=== PATIENT | male | born 1940 | race Caucasian/White ===

== ENCOUNTER → 2016-05-17 | Outpatient (REF) | payer MEDICARE ==
[~2016-05-17] MED LIST: ASPI1TAB PO; CALC600T30 PO; DRIS50002 PO; LISI-542 PO; LOPR1TAB6 PO; SIMV20TA2 PO
[2016-05-17 15:53] LABS: ANION GAP 8 MEQ/L (8-16); BLOOD UREA NITROGEN 14 MG/DL (7-18); CALCIUM LEVEL 9.3 MG/DL (8.8-10.2); CARBON DIOXIDE LEVEL 31 MEQ/L (21-32); CHLORIDE LEVEL 102 MEQ/L (98-107); CHOLESTEROL LEVEL 152 MG/DL (<200); CREATININE FOR GFR 1.04 MG/DL (0.70-1.30); GLOMERULAR FILTRATION RATE > 60.0 (>42); GLUCOSE, FASTING 88 MG/DL (83-110); POTASSIUM SERUM 5.1 MEQ/L (3.5-5.1); SODIUM LEVEL 141 MEQ/L (136-145); TRIGLYCERIDES LEVEL 109 MG/DL (<150)
== END ==
LOC: M SFHCSACK 05-14 13:49
PROVIDERS: ATTEND Nurse Practitioner Family
DX: E78.5 Hyperlipidemia, unspecified (principal); I10 Essential (primary) hypertension; E55.9 Vitamin D deficiency, unspecified

== ENCOUNTER → 2016-06-21 | Outpatient (REF) | payer MEDICARE | LOC: M SFHCLACO 10:30 | PROVIDERS: ATTEND Physician Assistant | DX: D23.12 Other benign neoplasm of skin of left eyelid, including canthus (principal) | CPT/HCPCS: 11440; 88305; G0463 ==

== ENCOUNTER → 2016-11-29 | Outpatient (REF) | payer MEDICARE ==
[~2016-11-29] MED LIST changes: +CALTTAB11 PO; +CIPR-249 PO; +FLAG500T PO; +LISI10TA4 PO; +VITA1CAP2 PO
[2016-11-29 16:41] LABS: MEAN CORPUSCULAR HEMOGLOBIN 31.7 pg (27.0-33.0); MEAN CORPUSCULAR HGB CONC 32.2 g/dl (32.0-36.5); MEAN CORPUSCULAR VOLUME 98.2 fl (80.0-96.0); RED CELL DISTRIBUTION WIDTH 13.2 % (11.5-14.5)
[2016-11-29 16:53] LABS: ALBUMIN 3.8 GM/DL (3.2-5.2); ALBUMIN/GLOBULIN RATIO 1.23 (1.00-1.93); ALKALINE PHOSPHATASE 53 U/L (45-117); ALT/SGPT 29 U/L (12-78); ANION GAP 5 MEQ/L (8-16); AST/SGOT 23 U/L (15-37); BILIRUBIN,TOTAL 0.6 MG/DL (0.2-1.0); BLOOD UREA NITROGEN 16 MG/DL (7-18); CALCIUM LEVEL 8.9 MG/DL (8.8-10.2); CARBON DIOXIDE LEVEL 34 MEQ/L (21-32); CHLORIDE LEVEL 103 MEQ/L (98-107); CHOLESTEROL LEVEL 139 MG/DL (<200); CREATININE FOR GFR 0.96 MG/DL (0.70-1.30); GLOMERULAR FILTRATION RATE > 60.0 (>42); GLUCOSE, FASTING 97 MG/DL (83-110); POTASSIUM SERUM 4.7 MEQ/L (3.5-5.1); SODIUM LEVEL 142 MEQ/L (136-145); TOTAL PROTEIN 6.9 GM/DL (6.4-8.2); TRIGLYCERIDES LEVEL 175 MG/DL (<150)
== END ==
LOC: M SFHCSACK 08:34
PROVIDERS: ATTEND Physician Assistant
DX: I10 Essential (primary) hypertension (principal); E55.9 Vitamin D deficiency, unspecified; E78.5 Hyperlipidemia, unspecified; Z12.5 Encounter for screening for malignant neoplasm of prostate
CPT/HCPCS: 36415; 80053; 80061; 82306; 85027; G0103

== ENCOUNTER → 2016-11-30 | Outpatient (CLI) | payer MEDICARE ==
--- NOTE | 2016-11-30 08:24 | REP ---
Abdominal aorta ultrasound: Abdominal Aortic Measurements are as follows: Proximal 1.7 cm AP 2.3 cm TRV Renal Artery Level 2.0 cm AP 2.2 cm TRV Mid Aorta 2.0 cm AP 1.9 cm TRV Distal Aorta 1.4 cm AP 1.7 cm TRV R Iliac Artery 1.2 cm AP 1.5 cm TRV L Iliac Artery 1.1 cm AP 1.4 cm TRV Impression: No evidence of abdominal aortic aneurysm. The study is technically difficult because of patient body habitus and bowel gas. Signed by Kyle Matamoros MD 11/30/2016 08:16 A
== END ==
LOC: M RAD 06:37
PROVIDERS: ATTEND Physician Assistant
DX: Z13.6 Encounter for screening for cardiovascular disorders (principal)

== ENCOUNTER 2016-12-21 07:55 | Inpatient (IN) | payer MEDICARE ==
[~2016-12-21] VITALS: Ht 167.6 cm; Wt 113.5 kg
[~2016-12-21 07:55] MED LIST changes: -CALTTAB11 PO; -CIPR-249 PO; -FLAG500T PO; -LISI10TA4 PO; -VITA1CAP2 PO
[2016-12-21] MEDS ORDERED: VITA1CAP2 PO (08:06)
[2016-12-21] MEDS ORDERED: CALTTAB11 PO (08:06)
[2016-12-21] MEDS ORDERED: NS 1,000 ML IV SCH (08:09)
[2016-12-21] MEDS ORDERED: ONDANSETRON 4MG/2ML VIAL (J2405) IV ONE (08:15)
[2016-12-21] MEDS: MORPHINE 4 MG/ML 1ML SYRINGE IV PRN ×2 (08:23→09:05)
[2016-12-21 08:36] LABS: BASO % 0.4 % (0.0-1.0); EOS # 0.1 10^3/uL (0.0-0.50); EOS % 0.8 % (0.0-3.0); IMMATURE GRANULOCYTE % 0.4 % (0-0); LYMPH # 1.7 10^3/uL (1.5-4.5); LYMPH % 16.4 % (24.0-44.0); MEAN CORPUSCULAR HGB CONC 32.4 g/dl (32.0-36.5); MEAN CORPUSCULAR VOLUME 95.8 fl (80.0-96.0); MONO # 0.8 10^3/uL (0.0-0.8); MONO % 7.3 % (0.0-5.0); NEUTROPHILS # 7.8 10^3/uL (1.8-7.7); NEUTROPHILS % 74.7 % (36.0-66.0); PLATELET COUNT, AUTOMATED 183 10^3/uL (150-450); RED CELL DISTRIBUTION WIDTH 13.2 % (11.5-14.5); WHITE BLOOD COUNT 10.4 10^3/uL (4.0-10.0)
[2016-12-21 08:40] LABS: ADD MANUAL DIFFER NO; DIFF SLIDE NUMBER 129
[2016-12-21] MEDS ORDERED: LISINOPRIL 10 MG TAB PO SCH (09:00)
[2016-12-21] MEDS ORDERED: ASPIRIN 81 MG ENTERIC TAB PO SCH (09:00)
--- NOTE | 2016-12-21 09:26 | REP ---
Abdominal series: Four views. History: Abdominal pain. Findings: Upright chest radiograph shows EKG monitoring electrodes. The lungs are symmetrically aerated and clear. There is no evidence of infiltrate or free subdiaphragmatic air. Heart is not felt to be enlarged. Supine and erect views of the abdomen show a 1.7 cm calcification in the right upper quadrant consistent with a gallstone. The bowel gas pattern is unremarkable. No significant air-fluid levels are seen. Flank stripes are intact. Psoas margins are symmetric. There is no evidence of obstruction. There are some degenerative disc changes in the lumbar spine. Impression: Large calcification right upper quadrant consistent with a calcified gallstone. Normal bowel gas pattern. No acute abnormality. Signed by Yinka Wiley MD 12/21/2016 09:30 A
[2016-12-21 09:55] LABS: ALBUMIN 3.6 GM/DL (3.2-5.2); ALBUMIN/GLOBULIN RATIO 1.03 (1.00-1.93); ALKALINE PHOSPHATASE 57 U/L (45-117); ALT/SGPT 28 U/L (12-78); ANION GAP 4 MEQ/L (8-16); AST/SGOT 20 U/L (15-37); BILIRUBIN,DIRECT 0.1 MG/DL (0.0-0.2); BILIRUBIN,TOTAL 0.5 MG/DL (0.2-1.0); BLOOD UREA NITROGEN 18 MG/DL (7-18); CALCIUM LEVEL 9.4 MG/DL (8.8-10.2); CARBON DIOXIDE LEVEL 33 MEQ/L (21-32); CHLORIDE LEVEL 103 MEQ/L (98-107); CREATININE FOR GFR 1.02 MG/DL (0.70-1.30); GLOMERULAR FILTRATION RATE > 60.0 (>42); GLUCOSE, FASTING 113 MG/DL (83-110); POTASSIUM SERUM 4.9 MEQ/L (3.5-5.1); SODIUM LEVEL 140 MEQ/L (136-145); TOTAL PROTEIN 7.1 GM/DL (6.4-8.2)
[2016-12-21] MEDS ORDERED: LISI10TA4 PO (12:47)
--- NOTE | 2016-12-21 13:34 | REP ---
Right upper quadrant sonography: History: Right upper quadrant pain. Findings: Exam quality is inhibited to some degree by patient body habitus. Scanning through the right upper quadrant demonstrates a normal sized thin-walled nontender gallbladder with evidence of a mobile stone in its lumen. The gallstone measures up to 1.4 cm in greatest diameter. No pericholecystic fluid is seen. Common bile duct is normal measuring 0.6 cm in greatest diameter. There is evidence of fatty infiltration of the liver with poor insonation of the liver. No focal liver mass lesion is seen. Pancreas is obscured by abdominal gas. There is no evidence of ascites. No right renal abnormality is noted. The right kidney measures 10.0 x 4.8 x 4.7 cm. Impression: 1.4 cm mobile gallstone in the gallbladder. Evidence of fatty infiltration of the liver. Otherwise negative. Signed by Yinka Wiley MD 12/21/2016 03:32 P
--- NOTE | 2016-12-21 13:35 | HPEPDOC ---
[facility] Medical History & Physical Date of Admission Dec 21, 2016 History and Physical ATTENDING: Dr. Pizarro PCP: [facility] CC: Abdominal pain HPI: 76yoM with a past medical history significant for hypertension, hyperlipidemia, obesity, history of CVA who states he has had left lower quadrant abdominal pain since yesterday worsening throughout the night. He felt slightly nauseated this morning however he had no vomiting. Denies diarrhea. States he had a bowel movement today. Patient states his pain is improved since he got to the emergency room however previous to that it was sharp and severe. He denies back pain. Denies urinary complaints including dysuria, frequency, urgency, or hematuria. While the patient was in the emergency room he was noted to have 6 beats of NSVT followed by a 5 second 25 beat run of VT. The patient was asymptomatic. He denies any chest heaviness, tightness, or pressure. Denies DOMINGUEZ/SOB. Denies any fevers, chills, weakness, fatigue, VENTURA, CP, SOB, cough, palpitations , abdominal pain, N/V/D or changes in bowel or bladder habits. Upon presentation to the hospital the patient was found to have NSVT, thus the hospitalist team was consulted. PMHx: Right cerebral hemorrhage 2013/YARELIS 2013. [place] Hypertension Hyperlipidemia Obesity. 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 PE: GEN: 76yoM, appears stated age. Well-nourished, well developed. No acute distress. Alert and oriented x 3. Pleasant, interactive. HEENT: Normocephalic, atraumatic. Pupils are equal, round, and reactive to light. Extraocular movements are intact. No nystagmus appreciated. Sclera are nonicteric. Conjunctiva without injection. Nose midline. Nasal turbinates without bogginess. EACs both patent BL. TMs both visualized and zarate with good cone of light, no bulging or erythema. No facial asymmetry. Moist mucous membranes. Dentition fair. Pharynx pink and moist, no cobblestoning. Neck supple , trachea midline. No lymphadenopathy or thyromegaly appreciated. CHEST: Regular rate and rhythm, +S1, +S2 LUNGS: Clear to auscultation bilaterally. No wheezes, rales, or rhonchi. Breathing appears symmetric and easy. Patient is speaking in full sentences. No accessory muscle use. ABD: Round, soft, mild RLQ TTP, mild distention noted. Bowel sounds present. No rebound or guarding. No costovertebral angle tenderness. EXT: Pulses 2+ bilaterally dorsalis pedis and radial. No lower extremity edema appreciated. SKIN: [place], dry, warm. Capillary refill <2sec. No rashes. NEURO: Alert and oriented x 3. Cranial nerves III-XII are intact. No focal deficits appreciated. AXR: Large calcification right upper quadrant consistent with a calcified gallstone. Normal bowel gas pattern. No acute abnormality Gallbladder ultrasound pending CT abdomen and pelvis pending EKG: Sinus rhythm, occasional PVC, low voltage, IWMI probable old, 80 bpm. A&P: 76yoM with a past medical history significant for hypertension, hyperlipidemia, obesity, history of CVA who states he has had left lower quadrant abdominal pain since yesterday worsening throughout the night. He felt slightly nauseated this morning however he had no vomiting. Denies diarrhea. States he had a bowel movement today. Patient states his pain is improved since he got to the emergency room however previous to that it was sharp and severe. He denies back pain. Denies urinary complaints including dysuria, frequency, urgency, or hematuria. While the patient was in the emergency room he was noted to have 6 beats of NSVT followed by a 5 second 25 beat run of VT. The patient was asymptomatic. He denies any chest heaviness, tightness, or pressure. 1. The patient will be admitted to PCU for at least [address] Pizarro's service. Patient is discussed with Dr Palumbo. 2. NSVT. Patient is asymptomatic. Serial CIP/troponin. Potassium is noted to be 4.9. Add magnesium level. Request echocardiogram. 3. Right lower quadrant abdominal pain. Gallbladder ultrasound pending. CT scan abdomen and pelvis pending. Blood cultures/urine culture pending. Patient is afebrile. WBC noted to be 10.3. Lactic acid is noted to be 1.8. IV fluids at 100 mL per hour in the emergency department x 1 liter. Subsequently, CT A/P indicates acute appendicitis. Dr Monsivais consulted. NPO/ IVF. Hold ASA 81 mg. IV Zosyn started. Plan to discuss with Dr Manzanares, Cardiology, regarding cardiac preoperative clearance. Request previous YARELIS results from [facility]. Discussed with Dr Palumbo. Also have further discussed with Dr Manzanares, cardiology CLT requested regarding preoperative clearance. He recommends request records from [facility], request TTE STAT, consider dose of Metoprolol x 1 now. Set of CIP/Trop x 1 now. 4. Hypertension. Continue metoprolol with hold parameters. Hold aspirin 81 mg daily/Lisinopril. 5. Dyslipidemia. Continue statin. LDL is noted to be 62 9/17. 6. Obesity. BMI 37.1. Complicates care. DVT prophylaxis. SCD/TEDS. The patient is a full code. Vital Signs Vital Signs Date Time Temp Pulse Resp B/P (MAP) Pulse Ox O2 Delivery O2 Flow Rate FiO2 12/21/16 11:35 98.2 12/21/16 11:21 80 18 95 Nasal Cannula 2.0 Laboratory Data Labs 24H Laboratory Tests 2 12/21/16 08:21: Immature Granulocyte % (Auto) 0.4H, White Blood Count 10.4H, Red Blood Count 4.48, Hemoglobin 13.9L, Hematocrit 42.9, Mean Corpuscular Volume 95.8, Mean Corpuscular Hemoglobin 31.0, Mean Corpuscular Hemoglobin Concent 32.4, Red Cell Distribution Width 13.2, Platelet Count 183, Neutrophils (%) (Auto) 74.7H, Lymphocytes (%) (Auto) 16.4L, Monocytes (%) (Auto) 7.3H, Eosinophils (%) (Auto) 0.8, Basophils (%) (Auto) 0.4, Neutrophils # (Auto) 7.8H, Lymphocytes # (Auto) 1.7, Monocytes # (Auto) 0.8, Eosinophils # (Auto) 0.1, Basophils # (Auto) 0.0, Immature Granulocyte # (Auto) 0.0, Nucleated Red Blood Cells % (auto) 0.0, Anion Gap 4L, Glomerular Filtration Rate > 60.0, Lactic Acid Level 1.8, Calcium Level 9.4, Aspartate Amino Transf (AST/SGOT) 20, Alanine Aminotransferase (ALT/ SGPT) 28, Alkaline Phosphatase 57, Total Bilirubin 0.5, Direct Bilirubin 0.1, Creatine Kinase MB 2.8, Troponin I < 0.02, Total Protein 7.1, Albumin 3.6, Albumin/Globulin Ratio 1.03, Lipase 316 12/21/16 10:26: Urine Appearance CLEAR, Urine Color YELLOW, Urine pH 5.0, Urine Specific [place] 1.015, Urine Protein NEGATIVE, Urine Glucose (UA) NEGATIVE, Urine Ketones NEGATIVE, Urine Urobilinogen 0.2, Urine Bilirubin NEGATIVE, Urine Leukocyte Esterase NEGATIVE, Urine Blood NEGATIVE, Urine Nitrite NEGATIVE, Urine WBC (Auto) 0, Urine RBC (Auto) 4H, Urine Hyaline Casts (Auto) 0, Urine Bacteria (Auto) NEGATIVE, Urine Squamous Epithelial Cells 0, Urine Sperm (Auto) CBC/BMP Laboratory Tests 12/21/16 08:21 Red Blood Count 4.48, Mean Corpuscular Volume 95.8, Mean Corpuscular Hemoglobin 31.0, Mean Corpuscular Hemoglobin Concent 32.4, Red Cell Distribution Width 13.2 , Neutrophils (%) (Auto) 74.7 H, Lymphocytes (%) (Auto) 16.4 L, Monocytes (%) ( Auto) 7.3 H, Eosinophils (%) (Auto) 0.8, Basophils (%) (Auto) 0.4, Neutrophils # (Auto) 7.8 H, Lymphocytes # (Auto) 1.7, Monocytes # (Auto) 0.8, Eosinophils # (Auto) 0.1, Basophils # (Auto) 0.0 Home Medications Scheduled (Caltrate 600+D 600-800 mg-Unit) 1 Tab Tab, 1 TAB PO BID Aspirin (Aspirin 81) 81 Mg Tab, 81 MG PO DAILY Cholecalciferol (Vitamin D-3) 1,000 Unit Cap, 1,000 UNIT PO DAILY Lisinopril (Lisinopril) 10 Mg Tab, 10 MG PO DAILY Metoprolol Tartrate (Lopressor) 50 Mg Tab, 50 MG PO BID Simvastatin (Simvastatin) 20 Mg Tab, 20 MG PO QHS Allergies Coded Allergies: No Known Allergies (Unverified , 12/21/16) Jessica Candelario Dec 21, 2016 13:34
--- NOTE | 2016-12-21 14:08 | REP ---
CT of the abdomen and pelvis without IV or bowel contrast: The visualized lung mayen demonstrate dependent atelectasis but are otherwise unremarkable. The unenhanced hepatic parenchyma is unremarkable. There is an 80 ml calculus in the gallbladder neck. There is no gallbladder distension, wall thickening or pericholecystic fluid. The pancreas is unremarkable. The spleen is unremarkable. The adrenals are unremarkable. There is no hydronephrosis. There are no renal or ureteral calculi. The abdominal aorta is unremarkable except for calcified atheroma. There is no bowel distension or obstruction. Pelvis: The appendix is distended measuring 10 - 13 mm in diameter. I suspect there is a inflammation in the mesentery at the tip of the appendix. There is no focal fluid collection. There is no ascites. No adenopathy. The bladder is unremarkable. Impression: There is no hydronephrosis. There are no renal collecting system calculi. The appendix appears distended and there is mild inflammatory change in the mesentery at the appendiceal tip compatible with appendicitis. No ascites or adenopathy. There is a calculus in the gallbladder neck. No evidence of acute cholecystitis. Signed by Kyle Matamoros MD 12/21/2016 02:00 P
[2016-12-21] MEDS ORDERED: ACETAMINOPHEN TAB 650MG DOSE (2X325MG) PO PRN (14:30)
[2016-12-21] MEDS: NS 1,000 ML IV SCH (14:42)
[2016-12-21 14:54] LABS: MAGNESIUM LEVEL 1.9 MG/DL (1.8-2.4)
[2016-12-21] MEDS ORDERED: METOPROLOL TART 12.5 MG PER 1/2 TAB PO ONE (15:00)
[2016-12-21 15:12] VITALS: BP 116/63
--- NOTE | 2016-12-21 16:03 | CR ---
DATE OF CONSULTATION: 12/21/2016 BRIEF HISTORY OF PRESENT ILLNESS: The patient is a 76-year-old white male who presents with abdominal pain that was present since early yesterday and last night got quite severe in the middle the night was seen in the emergency room this morning and was felt to have some right-sided abdominal pain and had a gallbladder ultrasound which showed gallstones without any an acute inflammation then a CAT scan was ordered, but by the time a CAT scan was ordered the patient ended up having a significant run of the V-tach. The patient is asymptomatic, although he has complained of some progressive shortness of breath over the last 6 months with ambulation that causes shortness of breath. He states about 50 yard to 75 yards before he has to stop and catch his breath. He states this is different over the last 6 months. He has had no fevers or chills. He has had a cardiac workup it sounds as though in 2013. From a right lower quadrant, right-sided abdominal pain he ended up having a CAT scan after this, which showed some inflammation in the right lower quadrant adjacent to the appendix with some thickening of the appendix consistent with possible early appendicitis. I was asked to see him for additional recommendations. Since his admission to the emergency room he states his pain is much better. He states that when he was having pain overnight and earlier today he could not even touch his belly and now he says it does not hurt much unless you push really hard. PAST MEDICAL HISTORY: Is significant for history of right cerebral hemorrhage, history of hypertension, history of hyperlipidemia, history of obesity, history of right carpal tunnel release, history of colonoscopies with a history of adenomatous polyps, history of cataract surgery, history of [id number], recent onset of shortness of breath. No complaints of chest pain. PHYSICAL EXAMINATION: On his physical exam the patient is a 76-year-old male who appears to be in no acute distress. However, he is mildly short of breath when I am talking to him and he has oxygen on at this point despite this he stills seems to have some difficulty finishing his sentence without some shortness breath at baseline. His heart is regular with a few irregular beats. His lungs are diminished bilaterally and posteriorly. Abdomen is soft, morbidly obese, mildly tender to palpation in the right lower quadrant with guarding, but no rebound. Extremities are warm and well-perfused. IMPRESSION AND PLAN: 1. The patient has a symptomatic gallstones unlikely the etiology of his pain. 2. Appendicitis. I do feel that he has some inflammation around his appendix and easily could have early appendicitis. However, he has had clinical improvement since this morning. Thus he may be an individual that nonoperative intervention is a very reasonable option for him typically with greater than 24 hours of abdominal pain, I would have expected his white count jumped higher than 10. In addition would expect have him have a increasing pain at this point. I do see what may have been a fecalith that is currently in the cecum adjacent to the appendiceal orifice and I wonder if this was in the appendiceal orifice and now has "popped out" and may be why he has resolved some of his abdominal pain, it is hard to know at this point, but since he clinically has improved there is a definite reasonable option for nonoperative treatment in this individual. Currently my concerns from a surgical standpoint is just his shortness of breath alone makes his operative intervention riskier, I understand cardiology will be coming by to see him and they will need to optimize him and clear him from a cardiac standpoint over the next 12-24 hours. However, if we watch him over the next 12-24 hours and he has decreasing pain and clinical improvement, we may be able to forego operative intervention completely. I would like to avoid anticoagulation in this individual until we are more sure that he will not need operative intervention. If, however, he is deemed not an operative candidate from a medical standpoint we can continue watching him and even if he needs intervention such as percutaneous drainage, etc. that could be scheduled at some point in the future if he develops an abscess. Once again that would be several steps down the road. Cardiac issues had an episode of V-tach with this new onset shortness of breath over the last 6 months. I am not sure if his shortness of breath now in the room is different than it was when he was down in the emergency room, but we will wait cardiology's recommendations and evaluation.
[2016-12-21] MEDS: VITAMIN D 1,000 INTERNATIONAL UNITS TABLET PO SCH (17:29)
[2016-12-21] MEDS: PIPERACILLIN/TAZOBACTAM SOD 3.375 GM in D5W 50 ML IV SCH (17:29)
--- NOTE | 2016-12-21 18:24 | ECHO ---
DATE OF PROCEDURE: 12/21/2016 REFERRING PHYSICIAN: NAZANIN Brery INDICATION: Ventricular tachycardia. HEIGHT: 168 cm WEIGHT: 104 kg. DIMENSIONS: IVS: 1.1 LV: 4.7 LVPW: 1.1 LA: 3.9 Aorta: 3.9 FINDINGS: The study is of fair technical quality. There are reasonably good parasternal views, but apical and subcostal views are rather limited. Left ventricle is of normal size and systolic function, estimated left ventricular ejection fraction (LVEF) 65-70%. Even though I cannot rule out subtle wall motion abnormalities, it seems unlikely. The right ventricle also appears normal size and systolic function. Left atrium is at least mildly enlarged. Right atrium appears grossly normal. Aortic, mitral and tricuspid valves appear normal. Pulmonic valve was not well seen. No pericardial effusion is noted. Inferior vena cava is normal size. Aortic root is borderline dilated at 3.9 cm. Aortic arch and abdominal aorta were not well visualized. Doppler interrogation reveals no aortic stenosis or insufficiency. There is mild mitral insufficiency and trace tricuspid insufficiency. Calculated pulmonary artery pressure is in 30s corresponding to mild pulmonary hypertension. Mitral inflow pattern and tissue Doppler imaging of mitral annulus reveal grade 1 diastolic dysfunction. CONCLUSION 1. Study is of fair technical quality. 2. Normal LV size and systolic function, grade 1 diastolic dysfunction. 3. No significant valvular disease. 4. Likely normal central venous pressure and mild pulmonary hypertension. COMMENT: Subacute bacterial endocarditis (SBE) prophylaxis is not recommended. Study does not provide evidence for ischemic heart disease. MTDD
--- NOTE | 2016-12-21 18:50 | CR ---
DATE OF CONSULTATION: 12/21/2016 REFERRING PHYSICIAN: Jessica Candelario INDICATION: Nonsustained ventricular tachycardia. HISTORY OF PRESENT ILLNESS: Mr. Keating is 76-year-old man who has no prior cardiac history. He presented to [facility] complaining about right lower quadrant abdominal pain and has suspected appendicitis. While he was in the emergency room he had a 25 beat run of what was felt to be ventricular tachycardia. He was asymptomatic at that time other than the abdominal pain. His cardiac enzymes have been negative times 2. I was called for consultation mostly to provide guidance regarding further management and provide clearance for tentative appendectomy if felt necessary. The patient tells me that he has no cardiac history. He denies any chest discomfort. He has exertional dyspnea by [place] [employer], class II to III, but he is able to take care of his household without major difficulty. He denies having any unusual symptoms at the time of the arrhythmia. Reviewing the strips from emergency room, it is my impression that the recording actually represents artifact. The ventricular rate of the recorded arrhythmias was 300 beats per minute and it is a very narrow QRS complex; much more narrow that the baseline QRS which makes this very unlikely. I am not exactly certain what is the source of this artifact, but I certainly do not believe that it truly represents ventricular tachycardia. PAST MEDICAL HISTORY: 1. History of cerebral hemorrhage into 2013. He apparently had transesophageal echocardiogram in [place], [place]. To the best of his understanding no significant pathology was found. 2. Hypertension. 3. Dyslipidemia. 4. Obesity. PAST SURGICAL HISTORY: Positive for cataract surgery and carpal tunnel repair. SOCIAL HISTORY: The patient is . 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 He tells me that he briefly smoked but quit about 40 years ago. He has minimal alcohol consumption. He has two sons. They are not local. FAMILY HISTORY: Both parents are , mother of stroke, and father of COPD. He has no first-degree relatives with early coronary artery disease. REVIEW OF SYSTEMS: On the review of systems he denies any recent fever, chills, nausea or vomiting. The abdominal pain onset was only a few hours prior to presentation to emergency room. He denies any chest pain, palpitations, syncope and near-syncope. No peripheral edema. No recent weight changes. The rest of review of system is negative. PHYSICAL EXAMINATION: Mr. Keating is a man appears approximately his age of 76. He is not in no distress. He is lying flat on his back in PCU bed. Blood pressure last documented 116/63, heart rate has been in 70s and 80s. He is afebrile. Saturation is 97% on 2 liters of oxygen by nasal cannula. Weight is documented at 104 kg. Jugular venous pressure is not elevated. I do not appreciate carotid bruit. Lungs are clear to auscultation with good air movement. Heart: Exam reveals somewhat muffled heart sound corresponding to his body habitus, but I do not appreciate any gallop, rub or murmur. There is palpation tenderness in right lower quadrant. No tenderness on the left side and he is somewhat apprehensive while palpating his right upper quadrant. Bowel sounds are present. There is no peripheral edema. Peripheral pulses are all palpable. Neurologically, he has some slight speech impediment, but I do not appreciate any other focal signs. LABORATORY: CBC: WBC count 10.4, hemoglobin and 13.9, hematocrit 42.9 and platelet count 183,000. Basic metabolic panel was normal. Liver function tests are normal. Albumin is 3.6. Two sets of cardiac enzymes have been normal and urinalysis is normal. IMAGING STUDIES: CT of the abdomen is suggestive of possibly appendicitis even though the reading is not overly convincing, the but I think that overall presentation, yes. ECG performed in the emergency room reveals sinus rhythm with ventricular rate 80 beats per minute. There are nondiagnostic Q-waves in leads III and aVF and there is occasional premature ventricular contraction (PVC). No significant ST-T abnormality. ASSESSMENT/PLAN: Mr. Keating is a 76-year-old obese man with history of hypertension and dyslipidemia who presents with likely appendicitis. He was felt to have a VT in emergency room but in my opinion the tracing represents an artifact. He had an echocardiogram that revealed preserved LV systolic function. From my perspective, the patient can proceed with surgery if felt appropriate without further delay. I do not have any specific recommendations for perioperative management other than continuation of metoprolol. I would continue monitoring on telemetry overnight, but if no abnormalities are noted, I think he can be transferred to non-monitor bed tomorrow morning.
[2016-12-21 19:37] LABS: MEAN CORPUSCULAR HEMOGLOBIN 31.3 pg (27.0-33.0); MEAN CORPUSCULAR VOLUME 97.8 fl (80.0-96.0); RED CELL DISTRIBUTION WIDTH 13.3 % (11.5-14.5); WHITE BLOOD COUNT 8.9 10^3/uL (4.0-10.0)
[2016-12-21 20:00] VITALS: BP 116/62
[2016-12-21] MEDS: METOPROLOL TART 50 MG TAB PO SCH (22:21)
[2016-12-21] MEDS: SIMVASTATIN 20 MG TAB PO SCH (22:22)
[2016-12-21 23:55] VITALS: BP 106/59
[2016-12-22] MEDS: PIPERACILLIN/TAZOBACTAM SOD 3.375 GM in D5W 50 ML IV SCH ×3 (00:16→16:16)
[2016-12-22] MEDS: NS 1,000 ML IV SCH (02:41)
[2016-12-22 05:20] VITALS: BP 110/64
[2016-12-22 05:35] LABS: BASO % 0.2 % (0.0-1.0); EOS # 0.1 10^3/uL (0.0-0.50); EOS % 1.1 % (0.0-3.0); IMMATURE GRANULOCYTE % 0.3 % (0-0); LYMPH # 1.5 10^3/uL (1.5-4.5); MEAN CORPUSCULAR HEMOGLOBIN 31.3 pg (27.0-33.0); MEAN CORPUSCULAR HGB CONC 31.8 g/dl (32.0-36.5); MEAN CORPUSCULAR VOLUME 98.4 fl (80.0-96.0); MONO # 0.8 10^3/uL (0.0-0.8); NEUTROPHILS # 4.2 10^3/uL (1.8-7.7); NEUTROPHILS % 63.4 % (36.0-66.0); PLATELET COUNT, AUTOMATED 158 10^3/uL (150-450); RED CELL DISTRIBUTION WIDTH 13.3 % (11.5-14.5); WHITE BLOOD COUNT 6.7 10^3/uL (4.0-10.0)
[2016-12-22 06:16] LABS: ALBUMIN 2.9 GM/DL (3.2-5.2); ALBUMIN/GLOBULIN RATIO 0.91 (1.00-1.93); ALKALINE PHOSPHATASE 38 U/L (45-117); ALT/SGPT 22 U/L (12-78); ANION GAP 4 MEQ/L (8-16); AST/SGOT 14 U/L (15-37); BILIRUBIN,TOTAL 0.7 MG/DL (0.2-1.0); BLOOD UREA NITROGEN 17 MG/DL (7-18); CALCIUM LEVEL 8.2 MG/DL (8.8-10.2); CARBON DIOXIDE LEVEL 31 MEQ/L (21-32); CHLORIDE LEVEL 104 MEQ/L (98-107); CREATININE FOR GFR 0.99 MG/DL (0.70-1.30); GLOMERULAR FILTRATION RATE > 60.0 (>42); GLUCOSE, FASTING 94 MG/DL (83-110); POTASSIUM SERUM 4.5 MEQ/L (3.5-5.1); SODIUM LEVEL 139 MEQ/L (136-145); TOTAL PROTEIN 6.1 GM/DL (6.4-8.2)
--- NOTE | 2016-12-22 06:18 | ECGEPIP ---
Stationary ECG Study [facility] - ED Test Date: 2016-12-21 Pat Name: PRAKASH NORIEGA Department: Room: - Gender: M Implementation Project Coordinator: JStuart : 1940 Requested By: Damien Ibarra Order Number: [id number] Reading MD: Damien Engle Measurements Intervals [place]herty Rate: 80 P: 49 MN: 168 QRS: -6 QRSD: 96 T: 28 QT: 390 QTc: 453 Interpretive Statements SINUS RHYTHM WITH OCCASIONAL VENTRICULAR PREMATURE COMPLEXES INDETERMINATE AXIS LOW QRS VOLTAGE IN EXTREMITY LEADS PATTERN CONSISTENT WITH PULMONARY DISEASE INFERIOR MYOCARDIAL INFARCTION, PROBABLY OLD NO PRIORS Electronically Signed On 12-22-2016 6:18:26 EDT by Damien Engle
--- NOTE | 2016-12-22 07:55 | IPN ---
DATE: 12/22/2016 Mr. Keating has not had any events overnight. He feels comfortable this morning, even though he still has some residual abdominal pain it is better since yesterday. There were no arrhythmias detected on telemetry. Blood pressure 110/64. Heart rate has been in the 70s and 80s. He is afebrile. Saturation is 96% on 2 liters of oxygen. Weight is 113, which is supposedly almost 9 kg up from yesterday, but is clearly incorrect. He is alert and oriented and appropriate. His jugular venous pulse (JVP) is not high. Lungs are clear. Heart exam reveals regular rhythm. I do not appreciate a murmur, gallop or rub. Abdomen is obese, but soft. There is still tenderness, especially in the right lower quadrant, but no guarding and no apparent rebound tenderness. Extremities have no edema. Neurologically, he is intact other than small mild speech impediment. Laboratory-santoro, CBC with hemoglobin 12.1, hematocrit 38.1 and platelet count 158,000. Basic metabolic panel is normal. ASSESSMENT AND PLAN: Mr. Keating is a 76-year-old man who has no prior history of cardiovascular disease and specifically no history of congestive heart failure or coronary artery disease. He was admitted yesterday with suspected appendicitis. He had a run of what was felt to be nonsustained ventricular tachycardia in the emergency room, but after reviewing the strip I am convinced that this represents an artifact. He has not had anything to suggest nonsustained VT on telemetry and has been asymptomatic, ruled out for myocardial infarction and his echocardiogram reveals preserved LV systolic function. I am going to sign off his care. In my opinion, he can be moved to a regular floor and if surgery is necessary it can be pursued without specific precautions.
[2016-12-22 08:00] VITALS: BP 131/63
[2016-12-22] MEDS: VITAMIN D 1,000 INTERNATIONAL UNITS TABLET PO SCH (09:17)
[2016-12-22] MEDS: METOPROLOL TART 50 MG TAB PO SCH ×2 (09:18→20:46)
[2016-12-22 12:00] VITALS: BP 137/66
--- NOTE | 2016-12-22 14:10 | IPNPDOC ---
Text Note Date of Service The patient was seen on 12/22/16. NOTE Subjective: Patient states his abdominal pain is much improved. Denies nausea and vomiting. No chest pain/palpitations. Objective: Vitals: (see below) General: No acute distress, laying comfortably in bed. HEENT: Moist mucous membranes. Neck: No JVD or lymphadenopathy Cardiac: RRR, No murmurs Pulm: Clear to auscultation b/l. No wheezing, rhonchi Abd: Minimal tenderness to palpation in the right lower quadrant. No rebound guarding or rigidity./ND + BS Ext: No edema or cyanosis Labs (see below) Images: Echo 12/21/16 CONCLUSION 1. Study is of fair technical quality. 2. Normal LV size and systolic function, grade 1 diastolic dysfunction. 3. No significant valvular disease. 4. Likely normal central venous pressure and mild pulmonary hypertension. CT Abd/pelvis 12/21/16 Impression: There is no hydronephrosis. There are no renal collecting system calculi. The appendix appears distended and there is mild inflammatory change in the mesentery at the appendiceal tip compatible with appendicitis. No ascites or adenopathy. There is a calculus in the gallbladder neck. No evidence of acute cholecystitis. Assessment/Plan 1. Right lower quadrant pain and suspicion of appendicitis. Surgery on board with recommendations for close observation with antibiotics at this time. Mild leukocytosis presentation. On IV fluids. 2. Questionable nonsustained V. tach. Hold by cardiology and is now thought to be artifactual and actual ventricular tachycardia. Echocardiogram with preserved EF. 3. Hypertension controlled continue current meds. 4. Hyperlipidemia continue statin 5. Obesity DVT prophy: SCDs VS,Fishbone, I+O VS, Fishbone, I+O Laboratory Tests 12/21/16 19:28 Red Blood Count 4.09 L, Mean Corpuscular Volume 97.8 H, Mean Corpuscular Hemoglobin 31.3, Mean Corpuscular Hemoglobin Concent 32.0, Red Cell Distribution Width 13.3 12/22/16 05:09 Red Blood Count 3.87 L, Mean Corpuscular Volume 98.4 H, Mean Corpuscular Hemoglobin 31.3, Mean Corpuscular Hemoglobin Concent 31.8 L, Red Cell Distribution Width 13.3, Neutrophils (%) (Auto) 63.4, Lymphocytes (%) (Auto) 23.0 L, Monocytes (%) (Auto) 12.0 H, Eosinophils (%) (Auto) 1.1, Basophils (%) ( Auto) 0.2, Neutrophils # (Auto) 4.2, Lymphocytes # (Auto) 1.5, Monocytes # (Auto ) 0.8, Eosinophils # (Auto) 0.1, Basophils # (Auto) 0.0, Calcium Level 8.2 L, Aspartate Amino Transf (AST/SGOT) 14 L, Alanine Aminotransferase (ALT/SGPT) 22, Alkaline Phosphatase 38 L, Total Bilirubin 0.7, Total Protein 6.1 L, Albumin 2.9 L Vital Signs Date Time Temp Pulse Resp B/P (MAP) Pulse Ox O2 Delivery O2 Flow Rate FiO2 12/22/16 12:00 98.2 81 18 137/66 (89) 98 Nasal Cannula 1.0 I&O- Last 24 Hours up to 6 AM 12/23/16 06:00 Intake Total 480 ml Output Total 700 ml Balance -220 ml SKYLAR GALLARDO MD Dec 22, 2016 14:10
--- NOTE | 2016-12-22 15:39 | IPN ---
DATE: 12/22/2016 The patient seems to be making good progress overnight. Seems to be feeling better this morning. He has been afebrile overnight. His white count is 6.7, which is down from what it was previously. Overall states that his abdominal pain is improved as well. PHYSICAL EXAMINATION: Abdomen is morbidly obese, mildly tender to palpation in the right lower quadrant but much improved since yesterday. Decreasing pain, decreasing tenderness in the right lower quadrant. IMPRESSION AND PLAN: The patient may have had early appendicitis or possible diverticulitis of the cecum or some other infectious etiology. At this point it may have also been a noninfectious etiology. I do feel that it is reasonable to keep him on the antibiotics at this time. Will start him on a clear liquid diet, and since he has had some significant improvement, I do feel that nonoperative treatment for him seems to be the appropriate course at this time. Will continue him on the clear liquids, antibiotics, and if he is doing well tomorrow, then we can progress him to a regular diet and plan on discharge the following day if he has continued improvement. In general, this may be a slower progression of increasing diet and discharge, but given his multiple comorbidities and overall general status, I do feel that it is reasonable to go slowly with him.
[2016-12-22 16:00] VITALS: BP 132/75
[2016-12-22 19:00] VITALS: BP 159/79
[2016-12-22] MEDS: SIMVASTATIN 20 MG TAB PO SCH (20:44)
[2016-12-22 22:00] VITALS: BP 154/73
[2016-12-23] MEDS: PIPERACILLIN/TAZOBACTAM SOD 3.375 GM in D5W 50 ML IV SCH ×2 (00:55→10:19)
[2016-12-23 06:00] VITALS: BP 148/90
[2016-12-23 06:29] LABS: BASO % 0.2 % (0.0-1.0); EOS # 0.1 10^3/uL (0.0-0.50); EOS % 1.7 % (0.0-3.0); IMMATURE GRANULOCYTE % 0.2 % (0-0); LYMPH # 1.4 10^3/uL (1.5-4.5); LYMPH % 25.8 % (24.0-44.0); MEAN CORPUSCULAR HEMOGLOBIN 31.1 pg (27.0-33.0); MEAN CORPUSCULAR HGB CONC 31.9 g/dl (32.0-36.5); MEAN CORPUSCULAR VOLUME 97.5 fl (80.0-96.0); MONO # 0.7 10^3/uL (0.0-0.8); MONO % 12.2 % (0.0-5.0); NEUTROPHILS # 3.2 10^3/uL (1.8-7.7); NEUTROPHILS % 59.9 % (36.0-66.0); PLATELET COUNT, AUTOMATED 151 10^3/uL (150-450); RED CELL DISTRIBUTION WIDTH 12.9 % (11.5-14.5); WHITE BLOOD COUNT 5.3 10^3/uL (4.0-10.0)
[2016-12-23 06:52] LABS: ALBUMIN 2.9 GM/DL (3.2-5.2); ALBUMIN/GLOBULIN RATIO 0.88 (1.00-1.93); ALKALINE PHOSPHATASE 39 U/L (45-117); ALT/SGPT 21 U/L (12-78); ANION GAP 6 MEQ/L (8-16); AST/SGOT 16 U/L (15-37); BILIRUBIN,TOTAL 0.6 MG/DL (0.2-1.0); BLOOD UREA NITROGEN 12 MG/DL (7-18); CARBON DIOXIDE LEVEL 29 MEQ/L (21-32); CHLORIDE LEVEL 103 MEQ/L (98-107); CREATININE FOR GFR 0.91 MG/DL (0.70-1.30); GLOMERULAR FILTRATION RATE > 60.0 (>42); GLUCOSE, FASTING 105 MG/DL (83-110); MAGNESIUM LEVEL 2.2 MG/DL (1.8-2.4); SODIUM LEVEL 138 MEQ/L (136-145); TOTAL PROTEIN 6.2 GM/DL (6.4-8.2)
--- NOTE | 2016-12-23 10:00 | IPNPDOC ---
Date Seen The patient was seen on 12/23/16. Progress Note SUBJECTIVE: The patient is a 76-year-old white male who presents abdominal pain.Gallbladder ultrasound showed gallstones without any an acute inflammation a CT scan showed some inflammation in the right lower quadrant adjacent to the appendix with some thickening of the appendix consistent with possible early appendicitis. Surgery was consulted to evaluate. Patient did well overnight. His pain has reduced. Patient is having multiple episodes of the glottis and watery bowel movements. He had been on clear liquids and he is tolerating that fine with no issues OBJECTIVE PHYSICAL EXAMINATION: VITAL SIGNS: Please see below. GENERAL: Alert, orientated gentleman resting peacefully CARDIOVASCULAR: S1 and S2's present, no murmurs, no rubs, no gallops. RESPIRATORY: Lungs are clear to auscultate anterior and posterior bilateral. ABDOMINAL: Tenderness to palpation on right lower quadrant EXTREMITIES: Movement, no deformities noted LABORATORY DATA: Please see below. ASSESSMENT AND PLAN: A 76-year-old man who presented to ED with abdominal pain, subsequent CT revealed inflammation in the right lower quadrant adjacent to the appendix. Patient white count this morning is 5.2. Patient does not have any signs of infection, and was afebrile overnight. Patient was on clear liquid diet overnight and he tolerated that well. He was able to tolerate a regular diet this morning. Pt can be discharge today with the instruction to follow up with Dr. Monsivais in 2-3 weeks. VS, I&O, 24H, Fishbone Vital Signs/I&O Vital Signs Date Time Temp Pulse Resp B/P (MAP) Pulse Ox O2 Delivery O2 Flow Rate FiO2 12/23/16 06:00 97.8 80 19 148/90 (109) 93 Room Air 12/22/16 12:00 1.0 I&O- Last 24 Hours up to 6 AM 12/24/16 06:00 Intake Total 240 ml Balance 240 ml Laboratory Data 24H LABS Laboratory Tests 2 12/22/16 10:11: Total Creatine Kinase 75, Creatine Kinase MB 1.4, Creatine Kinase MB Relative Index 1.86, Troponin I < 0.02 12/23/16 05:47: Immature Granulocyte % (Auto) 0.2H, White Blood Count 5.3, Red Blood Count 3.99L , Hemoglobin 12.4L, Hematocrit 38.9L, Mean Corpuscular Volume 97.5H, Mean Corpuscular Hemoglobin 31.1, Mean Corpuscular Hemoglobin Concent 31.9L, Red Cell Distribution Width 12.9, Platelet Count 151, Neutrophils (%) (Auto) 59.9, Lymphocytes (%) (Auto) 25.8, Monocytes (%) (Auto) 12.2H, Eosinophils (%) (Auto) 1.7, Basophils (%) (Auto) 0.2, Neutrophils # (Auto) 3.2, Lymphocytes # (Auto) 1.4L, Monocytes # (Auto) 0.7, Eosinophils # (Auto) 0.1, Basophils # (Auto) 0.0, Immature Granulocyte # (Auto) 0.0, Nucleated Red Blood Cells % (auto) 0.0, Anion Gap 6L, Glomerular Filtration Rate > 60.0, Blood Urea Nitrogen 12, Creatinine 0.91, Sodium Level 138, Potassium Level 4.0, Chloride Level 103, Carbon Dioxide Level 29, Calcium Level 8.0L, Aspartate Amino Transf (AST/SGOT) 16, Alanine Aminotransferase (ALT/SGPT) 21, Alkaline Phosphatase 39L, Total Bilirubin 0.6, Total Protein 6.2L, Albumin 2.9L, Magnesium Level 2.2, Albumin/ Globulin Ratio 0.88L CBC/BMP Laboratory Tests 12/23/16 05:47 Red Blood Count 3.99 L, Mean Corpuscular Volume 97.5 H, Mean Corpuscular Hemoglobin 31.1, Mean Corpuscular Hemoglobin Concent 31.9 L, Red Cell Distribution Width 12.9, Neutrophils (%) (Auto) 59.9, Lymphocytes (%) (Auto) 25.8, Monocytes (%) (Auto) 12.2 H, Eosinophils (%) (Auto) 1.7, Basophils (%) ( Auto) 0.2, Neutrophils # (Auto) 3.2, Lymphocytes # (Auto) 1.4 L, Monocytes # ( Auto) 0.7, Eosinophils # (Auto) 0.1, Basophils # (Auto) 0.0, Calcium Level 8.0 L , Aspartate Amino Transf (AST/SGOT) 16, Alanine Aminotransferase (ALT/SGPT) 21, Alkaline Phosphatase 39 L, Total Bilirubin 0.6, Total Protein 6.2 L, Albumin 2.9 L Microbiology Microbiology 12/21/16 Blood Culture - Preliminary, Resulted No growth after 24 hours . All specim... 12/22/16 Urine Culture - Final, Complete GME ATTESTATION GME ATTESTATION My preceptor for this patient encounter was physically present in the building during the encounter and was fully available. As needed, all aspects of the patient interview, examination, medical decision making process, and medical care plan development were reviewed and approved by the preceptor. Preceptor is aware and concurs with the plan as stated in the body of this note and will attest to such by his/her cosignature. LYRIC CHOWDARY DO Dec 23, 2016 10:00
[2016-12-23] MEDS: VITAMIN D 1,000 INTERNATIONAL UNITS TABLET PO SCH (10:19)
[2016-12-23 10:20] VITALS: BP 160/77
[2016-12-23] MEDS: METOPROLOL TART 50 MG TAB PO SCH (10:20)
[2016-12-23] MEDS ORDERED: FLAG500T PO (10:56)
[2016-12-23] MEDS ORDERED: CIPR-249 PO (10:56)
--- NOTE | 2016-12-23 16:26 | DS.PDOC ---
Discharge Summary General Date of Admission Dec 21, 2016 at 13:52 Date of Discharge 12/23/16 Attending Physician: SKYLAR GALLARDO MD Specialist/Consultants Involve: Osmany Monsivais Jr Specialist/Consultants Involve Dr. Manzanares Discharge Summary PROCEDURES PERFORMED DURING STAY: None. ADMITTING/DISCHARGE DIAGNOSES: 1. Early stages of appendicitis 2. Hypertension 3. Hyperlipidemia 4. Obesity COMPLICATIONS/CHIEF COMPLAINT: Abdominal pain HISTORY OF PRESENT ILLNESS/HOSPITAL COURSE: This is a 76-year-old male past medical history of hypertension, hyperlipidemia , obesity who presents complaining of abdominal pain. Patient was found to have inflammatory changes adjacent to his appendix for which he was started on Zosyn. Patient's abdominal pain has significantly improved and the patient is tolerating a diet. Patient was evaluated by surgery and felt the benefit from observation with antibiotics instead of undergoing surgery. He will be discharged with a full course of antibiotics which she will completes and follow -up with Dr. Monsivais in 1-2 weeks. Patient was also noted to have a questionable ventricular rhythm on admission however patient was evaluated by cardiology who thought that the rhythm was actually artifact in nature. Patient is now hemodynamically stable and ready for discharge. DISCHARGE MEDICATIONS: Please see below. ALLERGIES: Please see below. PHYSICAL EXAMINATION ON DISCHARGE: Vitals: (see below) General: No acute distress, laying comfortably in bed. HEENT: Moist mucous membranes. Neck: No JVD or lymphadenopathy Cardiac: RRR, No murmurs Pulm: Clear to auscultation b/l. No wheezing, rhonchi Abd: NT/ND + BS. Obese Ext: No edema or cyanosis LABORATORY DATA: Please see below. IMAGING: Echo 12/21/16 CONCLUSION 1. Study is of fair technical quality. 2. Normal LV size and systolic function, grade 1 diastolic dysfunction. 3. No significant valvular disease. 4. Likely normal central venous pressure and mild pulmonary hypertension. CT Abd/pelvis 12/21/16 Impression: There is no hydronephrosis. There are no renal collecting system calculi. The appendix appears distended and there is mild inflammatory change in the mesentery at the appendiceal tip compatible with appendicitis. No ascites or adenopathy. There is a calculus in the gallbladder neck. No evidence of acute cholecystitis. PROGNOSIS: Fair ACTIVITY: As tolerated. DIET: Low-sodium DISCHARGE PLAN/DISPOSITION: Home DISCHARGE INSTRUCTIONS: 1. Follow-up with PCP and Dr. Monsivais in 1-2 weeks. DISCHARGE CONDITION: Stable. TIME SPENT ON DISCHARGE: Greater than 30 minutes. Vital Signs/I&Os Vital Signs Date Time Temp Pulse Resp B/P (MAP) Pulse Ox O2 Delivery O2 Flow Rate FiO2 12/23/16 10:20 88 160/77 12/23/16 08:00 Room Air 12/23/16 06:00 97.8 19 93 12/22/16 12:00 1.0 I&O- Last 24 Hours up to 6 AM 12/24/16 06:00 Intake Total 600 ml Balance 600 ml Laboratory Data Labs 24H Laboratory Tests 2 12/23/16 05:47: Immature Granulocyte % (Auto) 0.2H, White Blood Count 5.3, Red Blood Count 3.99L , Hemoglobin 12.4L, Hematocrit 38.9L, Mean Corpuscular Volume 97.5H, Mean Corpuscular Hemoglobin 31.1, Mean Corpuscular Hemoglobin Concent 31.9L, Red Cell Distribution Width 12.9, Platelet Count 151, Neutrophils (%) (Auto) 59.9, Lymphocytes (%) (Auto) 25.8, Monocytes (%) (Auto) 12.2H, Eosinophils (%) (Auto) 1.7, Basophils (%) (Auto) 0.2, Neutrophils # (Auto) 3.2, Lymphocytes # (Auto) 1.4L, Monocytes # (Auto) 0.7, Eosinophils # (Auto) 0.1, Basophils # (Auto) 0.0, Immature Granulocyte # (Auto) 0.0, Nucleated Red Blood Cells % (auto) 0.0, Anion Gap 6L, Glomerular Filtration Rate > 60.0, Blood Urea Nitrogen 12, Creatinine 0.91, Sodium Level 138, Potassium Level 4.0, Chloride Level 103, Carbon Dioxide Level 29, Calcium Level 8.0L, Aspartate Amino Transf (AST/SGOT) 16, Alanine Aminotransferase (ALT/SGPT) 21, Alkaline Phosphatase 39L, Total Bilirubin 0.6, Total Protein 6.2L, Albumin 2.9L, Magnesium Level 2.2, Albumin/ Globulin Ratio 0.88L CBC/BMP Laboratory Tests 12/23/16 05:47 Red Blood Count 3.99 L, Mean Corpuscular Volume 97.5 H, Mean Corpuscular Hemoglobin 31.1, Mean Corpuscular Hemoglobin Concent 31.9 L, Red Cell Distribution Width 12.9, Neutrophils (%) (Auto) 59.9, Lymphocytes (%) (Auto) 25.8, Monocytes (%) (Auto) 12.2 H, Eosinophils (%) (Auto) 1.7, Basophils (%) ( Auto) 0.2, Neutrophils # (Auto) 3.2, Lymphocytes # (Auto) 1.4 L, Monocytes # ( Auto) 0.7, Eosinophils # (Auto) 0.1, Basophils # (Auto) 0.0, Calcium Level 8.0 L , Aspartate Amino Transf (AST/SGOT) 16, Alanine Aminotransferase (ALT/SGPT) 21, Alkaline Phosphatase 39 L, Total Bilirubin 0.6, Total Protein 6.2 L, Albumin 2.9 L Microbiology Microbiology 12/21/16 Blood Culture - Preliminary, Resulted No Growth after 48 hours. All Specime... 12/22/16 Urine Culture - Final, Complete Discharge Medications Scheduled (Caltrate 600+D 600-800 mg-Unit) 1 Tab Tab, 1 TAB PO BID, (Reported) Aspirin (Aspirin 81) 81 Mg Tab, 81 MG PO DAILY, (Reported) Cholecalciferol (Vitamin D-3) 1,000 Unit Cap, 1,000 UNIT PO DAILY, (Reported) Ciprofloxacin HCl (Cipro) 500 Mg Tab, 500 MG PO BID Lisinopril (Lisinopril) 10 Mg Tab, 10 MG PO DAILY, (Reported) Metoprolol Tartrate (Lopressor) 50 Mg Tab, 50 MG PO BID, (Reported) Metronidazole (Flagyl) 500 Mg Tab, 500 MG PO Q8H FOR 7 DAYS Simvastatin (Simvastatin) 20 Mg Tab, 20 MG PO QHS, (Reported) Allergies Coded Allergies: No Known Allergies (Unverified , 12/21/16) SKYLAR GALLARDO MD Dec 23, 2016 16:26
== END 2016-12-23 12:30 | disposition home or self-care (01) | DRG 445 ==
LOC: M ED 07:55 → EDBD 07:55 → M ED INP 13:52 → M PCU 15:12 → M MSPAV 12-22 18:52
PROVIDERS: ADMIT Internal Medicine; ATTEND Internal Medicine
DX: K80.50 Calculus of bile duct without cholangitis or cholecystitis without obstruction (principal); K35.80 Unspecified acute appendicitis; I47.2 Ventricular tachycardia; I10 Essential (primary) hypertension; E78.5 Hyperlipidemia, unspecified; E66.9 Obesity, unspecified; Z86.73 Personal history of transient ischemic attack (TIA), and cerebral infarction without residual deficits; Z68.37 Body mass index [BMI] 37.0-37.9, adult; Z98.49 Cataract extraction status, unspecified eye; Z87.891 Personal history of nicotine dependence; Z79.82 Long term (current) use of aspirin; Z79.899 Other long term (current) drug therapy

== ENCOUNTER → 2017-02-23 | Outpatient (REF) | payer MEDICARE ==
[~2017-02-23] MED LIST changes: +CALTTAB11 PO; +CIPR-249 PO; +FLAG500T PO; +LISI10TA4 PO; +VITA1CAP2 PO
[2017-02-23 15:04] LABS: BASO % 0.4 % (0.0-1.0); EOS # 0.1 10^3/uL (0.0-0.50); EOS % 1.8 % (0.0-3.0); IMMATURE GRANULOCYTE % 0.2 % (0-0); LYMPH # 1.6 10^3/uL (1.5-4.5); LYMPH % 28.3 % (24.0-44.0); MEAN CORPUSCULAR HEMOGLOBIN 31.7 pg (27.0-33.0); MEAN CORPUSCULAR HGB CONC 32.6 g/dl (32.0-36.5); MEAN CORPUSCULAR VOLUME 97.1 fl (80.0-96.0); MONO # 0.5 10^3/uL (0.0-0.8); MONO % 9.6 % (0.0-5.0); NEUTROPHILS # 3.3 10^3/uL (1.8-7.7); NEUTROPHILS % 59.7 % (36.0-66.0); PLATELET COUNT, AUTOMATED 163 10^3/uL (150-450); RED CELL DISTRIBUTION WIDTH 12.5 % (11.5-14.5); WHITE BLOOD COUNT 5.5 10^3/uL (4.0-10.0)
[2017-02-23 15:18] LABS: ALBUMIN 3.9 GM/DL (3.2-5.2); ALBUMIN/GLOBULIN RATIO 1.18 (1.00-1.93); ALKALINE PHOSPHATASE 54 U/L (45-117); ALT/SGPT 26 U/L (12-78); ANION GAP 7 MEQ/L (8-16); AST/SGOT 24 U/L (7-37); BILIRUBIN,TOTAL 0.5 MG/DL (0.2-1.0); BLOOD UREA NITROGEN 15 MG/DL (7-18); CARBON DIOXIDE LEVEL 32 MEQ/L (21-32); CHLORIDE LEVEL 102 MEQ/L (98-107); CHOLESTEROL LEVEL 143 MG/DL (<200); GLOMERULAR FILTRATION RATE > 60.0 (>42); GLUCOSE, FASTING 92 MG/DL (83-110); POTASSIUM SERUM 4.9 MEQ/L (3.5-5.1); SODIUM LEVEL 141 MEQ/L (136-145); TOTAL PROTEIN 7.2 GM/DL (6.4-8.2); TRIGLYCERIDES LEVEL 129 MG/DL (<150)
== END ==
LOC: M SFHCSACK 09:20
PROVIDERS: ATTEND Physician Assistant
DX: I10 Essential (primary) hypertension (principal); E78.5 Hyperlipidemia, unspecified; E55.9 Vitamin D deficiency, unspecified

== ENCOUNTER → 2017-03-02 | Outpatient (CLI) | payer MEDICARE ==
--- NOTE | 2017-03-02 12:53 | REP ---
PA and lateral chest: Comparison is the PA chest dated 12/21/2016. The lung mayen are clear and unchanged. Cardiac size is upper normal, unchanged. The horacio, mediastinum, and bony thorax are unremarkable for patient age and unchanged. There is mild thoracic scoliosis convex right, unchanged. Impression: No interval change. No acute cardiopulmonary findings. Signed by Kyle Matamoros MD 03/02/2017 12:45 P
== END ==
LOC: M RAD 10:31
PROVIDERS: ATTEND Physician Assistant
DX: J20.9 Acute bronchitis, unspecified (principal)

== ENCOUNTER → 2017-06-01 | Outpatient (REF) | payer MEDICARE ==
[2017-06-01 14:22] LABS: BASO % 0.6 % (0.0-1.0); EOS # 0.2 10^3/uL (0.0-0.50); EOS % 2.8 % (0.0-3.0); HEMOGLOBIN 14.5 g/dl (14.0-18.0); IMMATURE GRANULOCYTE % 0.4 % (0-3.0); LYMPH % 28.7 % (24.0-44.0); MEAN CORPUSCULAR HEMOGLOBIN 30.8 pg (27.0-33.0); MEAN CORPUSCULAR HGB CONC 32.2 g/dl (32.0-36.5); MEAN CORPUSCULAR VOLUME 95.5 fl (80.0-96.0); MONO # 0.8 10^3/uL (0.0-0.8); MONO % 10.7 % (0.0-5.0); NEUTROPHILS % 56.8 % (36.0-66.0); PLATELET COUNT, AUTOMATED 200 10^3/uL (150-450); RED BLOOD COUNT 4.71 10^6/uL (4.30-6.10); RED CELL DISTRIBUTION WIDTH 12.4 % (11.5-14.5); WHITE BLOOD COUNT 7.1 10^3/uL (4.0-10.0)
[2017-06-01 14:40] LABS: ALBUMIN 3.8 GM/DL (3.2-5.2); ALBUMIN/GLOBULIN RATIO 1.23 (1.00-1.93); ALKALINE PHOSPHATASE 59 U/L (45-117); ALT/SGPT 23 U/L (12-78); ANION GAP 6 MEQ/L (8-16); AST/SGOT 23 U/L (7-37); BILIRUBIN,TOTAL 0.5 MG/DL (0.2-1.0); BLOOD UREA NITROGEN 17 MG/DL (7-18); CALCIUM LEVEL 8.8 MG/DL (8.8-10.2); CARBON DIOXIDE LEVEL 32 MEQ/L (21-32); CHLORIDE LEVEL 103 MEQ/L (98-107); CREATININE FOR GFR 1.16 MG/DL (0.70-1.30); GLOMERULAR FILTRATION RATE > 60.0 (>42); GLUCOSE, FASTING 100 MG/DL (70-100); POTASSIUM SERUM 4.6 MEQ/L (3.5-5.1); SODIUM LEVEL 141 MEQ/L (136-145); TOTAL PROTEIN 6.9 GM/DL (6.4-8.2)
== END ==
LOC: M SFHCSACK 09:00
DX: I11.9 Hypertensive heart disease without heart failure (principal); E55.9 Vitamin D deficiency, unspecified
CPT/HCPCS: 80053

== ENCOUNTER 2017-08-29 03:00 | Day surgery (SDC) | payer MEDICARE ==
[2017-08-29 04:04] LABS: BASO % 0.2 % (0.0-1.0); EOS # 0.2 10^3/uL (0.0-0.50); EOS % 1.5 % (0.0-3.0); HEMATOCRIT 42.8 % (42.0-52.0); HEMOGLOBIN 13.8 g/dl (13.5-17.5); IMMATURE GRANULOCYTE % 0.6 % (0-3.0); LYMPH # 1.5 10^3/uL (1.5-4.5); LYMPH % 14.4 % (24.0-44.0); MEAN CORPUSCULAR HGB CONC 32.2 g/dl (32.0-36.5); MEAN CORPUSCULAR VOLUME 96.2 fl (80.0-96.0); MONO # 0.7 10^3/uL (0.0-0.8); MONO % 7.1 % (0.0-5.0); NEUTROPHILS % 76.2 % (36.0-66.0); PLATELET COUNT, AUTOMATED 184 10^3/uL (150-450); RED BLOOD COUNT 4.45 10^6/uL (4.30-6.10); RED CELL DISTRIBUTION WIDTH 12.6 % (11.5-14.5); WHITE BLOOD COUNT 10.5 10^3/uL (4.0-10.0)
[2017-08-29] MEDS: NS 500 ML IV ×2 (04:15)
[2017-08-29] MEDS: MORPHINE 4 MG/ML 1ML VIAL/SYRINGE (J2270) IV ×2 (04:34)
[2017-08-29] MEDS: METOCLOPRAMIDE INJ 10MG/2ML VIAL (J2765) IV ×2 (04:34)
[2017-08-29] MEDS ORDERED: GASTROGRAFIN SOLUTION 30ML (Q9963) As Ordered ×2 (04:45)
[2017-08-29 04:47] LABS: ALBUMIN 3.3 GM/DL (3.2-5.2); ALBUMIN/GLOBULIN RATIO 1.14 (1.00-1.93); ALKALINE PHOSPHATASE 53 U/L (45-117); ALT/SGPT 27 U/L (12-78); ANION GAP 5 MEQ/L (8-16); AST/SGOT 19 U/L (7-37); BILIRUBIN,DIRECT 0.1 MG/DL (0.0-0.2); BILIRUBIN,TOTAL 0.3 MG/DL (0.2-1.0); BLOOD UREA NITROGEN 14 MG/DL (7-18); CALCIUM LEVEL 8.7 MG/DL (8.8-10.2); CARBON DIOXIDE LEVEL 33 MEQ/L (21-32); CHLORIDE LEVEL 104 MEQ/L (98-107); CK-MB VALUE MASS 2.9 NG/ML (<3.6); CPK CREATINE PHOSPHOKINASE 120 U/L (39-308); GLOMERULAR FILTRATION RATE > 60.0 (>42); GLUCOSE, FASTING 92 MG/DL (70-100); LIPASE 126 U/L (73-393); MB/CK RELATIVE INDEX 2.41 (< OR =4); POTASSIUM SERUM 4.6 MEQ/L (3.5-5.1); SODIUM LEVEL 142 MEQ/L (136-145); TOTAL PROTEIN 6.2 GM/DL (6.4-8.2); TROPONIN I 0.06 NG/ML (< 0.10)
[2017-08-29] MEDS: GASTROGRAFIN SOLUTION 30ML (Q9963) PO ×16 (04:59→07:30)
[2017-08-29 06:33] LABS: KETONE, URINE AUTO RFX NEGATIVE (NEGATIVE); LEUKOCYTE ESTERASE UR AUTO RFX NEGATIVE (NEGATIVE); NITRITE, URINE AUTO RFX NEGATIVE (NEGATIVE); RBC, URINE AUTO RFX 2 /HPF (0-3); SPECIFIC GRAVITY UR AUTO RFX 1.014 (1.002-1.035); SQUAM EPITHELIAL CELL UR AURFX 0 /HPF (0-6); WBC, URINE AUTO RFX 0 /HPF (0-3)
[2017-08-29 06:53] LABS: LACTIC ACID SEPSIS PROTOCOL 1.3 MMOL/L (0.4-2.0)
[2017-08-29] MEDS: MORPHINE 2 MG/ML 1ML SYRINGE (J2270) IV ×2 (08:32)
[2017-08-29] MEDS: LISINOPRIL 10 MG TAB PO ×2 (09:00)
[2017-08-29] MEDS: ASPIRIN 81 MG ENTERIC TAB PO ×2 (09:00)
[2017-08-29] MEDS ORDERED: ACETAMINOPHEN TAB 650MG DOSE (2X325MG) PO ×2 (10:45)
[2017-08-29] MEDS ORDERED: MORPHINE 4 MG/ML 1ML VIAL/SYRINGE (J2270) IV ×2 (12:45)
[2017-08-29] MEDS: LR 1,000 ML IV ×6 (13:00→23:24)
[2017-08-29] MEDS: PIPERACILLIN/TAZOBACTAM SOD 3.375 GM in D5W MINI-BAG PLUS 50 ML IV ×2 (13:30→20:44)
[2017-08-29 13:43] LABS: HEMATOCRIT 43.8 % (42.0-52.0); HEMOGLOBIN 14.4 g/dl (13.5-17.5); MEAN CORPUSCULAR HEMOGLOBIN 31.6 pg (27.0-33.0); MEAN CORPUSCULAR HGB CONC 32.9 g/dl (32.0-36.5); MEAN CORPUSCULAR VOLUME 96.1 fl (80.0-96.0); PLATELET COUNT, AUTOMATED 182 10^3/uL (150-450); RED BLOOD COUNT 4.56 10^6/uL (4.30-6.10); RED CELL DISTRIBUTION WIDTH 12.8 % (11.5-14.5); WHITE BLOOD COUNT 11.4 10^3/uL (4.0-10.0)
[2017-08-29] MEDS: HEPARIN SOD (PORCINE) 5000 UNITS/ML VIAL SC ×4 (14:00→20:45)
[2017-08-29] MEDS: NORCO, ANEXSIA 5/325MG TABLET (HYDROcodone/ACETAMINOPHEN) PO ×2 (14:47)
[2017-08-29] MEDS: SENOKOT S TAB PO ×4 (14:47→20:45)
[2017-08-29] MEDS: SCOPOLAMINE 1MG TRANSDERMAL PATCH TOP ×2 (14:48)
[2017-08-29] MEDS: METOPROLOL TART 50 MG TAB PO ×4 (14:51→20:45)
[2017-08-29] MEDS ORDERED: MIDAZOLAM INJ 2 MG/2 ML VIAL (J2250) As Ordered ×2 (18:25)
[2017-08-29] MEDS ORDERED: ETOMIDATE INJ 20MG/10ML VIAL As Ordered ×2 (18:26)
[2017-08-29] MEDS ORDERED: ROCURONIUM BROMIDE 50 MG/5 ML VIAL As Ordered ×2 (18:42)
[2017-08-29] MEDS ORDERED: dexameTHASONE 4 MG/ML 1ML VIAL (J1100) As Ordered ×2 (18:42)
[2017-08-29] MEDS ORDERED: ONDANSETRON 4MG/2ML VIAL (J2405) As Ordered ×4 (18:42→19:38)
[2017-08-29] MEDS ORDERED: NEOSTIGMINE 10 MG/10 ML VIAL (J2710) As Ordered ×2 (18:42)
[2017-08-29] MEDS ORDERED: METOCLOPRAMIDE INJ 10MG/2ML VIAL (J2765) As Ordered ×2 (18:42)
[2017-08-29] MEDS ORDERED: GLYCOPYRROLATE INJ 0.2 MG/ML 2 ML VIAL As Ordered ×2 (18:42)
[2017-08-29] MEDS ORDERED: fentaNYL 100 MCG/2 ML INJECTION (J3010) As Ordered ×2 (18:42)
[2017-08-29] MEDS ORDERED: LIDOCAINE 2% INJ 100 MG/5 ML SDV (FOR ANES.) As Ordered ×2 (18:42)
[2017-08-29] MEDS ORDERED: PROPOFOL 200 MG/20 ML VIAL As Ordered ×2 (18:42)
[2017-08-29] MEDS: BUPIVACAINE/EPIN 0.5% 30 ML VIAL As Ordered ×2 (19:12)
[2017-08-29] MEDS ORDERED: LABETALOL HCL 100 MG/20 ML VIAL As Ordered ×2 (19:31)
[2017-08-29] MEDS: ONDANSETRON 4MG/2ML VIAL (J2405) IV ×2 (19:44)
[2017-08-29] MEDS ORDERED: fentaNYL 100 MCG/2 ML INJECTION (J3010) IV ×2 (20:15)
[2017-08-29] MEDS ORDERED: PERCOCET 5MG/325MG TAB PO ×2 (20:15)
[2017-08-29] MEDS: LABETALOL HCL 100 MG/20 ML VIAL IV ×2 (20:30)
[2017-08-29] MEDS: SIMVASTATIN 20 MG TAB PO ×2 (20:45)
[2017-08-30] MEDS: KETOROLAC 30 MG/ML VIAL (J1885) IV ×2 (01:22)
[2017-08-30] MEDS: PIPERACILLIN/TAZOBACTAM SOD 3.375 GM in D5W MINI-BAG PLUS 50 ML IV ×2 (02:04→06:08)
[2017-08-30] MEDS: LR 1,000 ML IV ×4 (04:47→06:08)
[2017-08-30 06:03] LABS: HEMATOCRIT 41.1 % (42.0-52.0); HEMOGLOBIN 13.4 g/dl (13.5-17.5); IMMATURE GRANULOCYTE % 0.3 % (0-3.0); LYMPH # 0.8 10^3/uL (1.5-4.5); LYMPH % 8.3 % (24.0-44.0); MEAN CORPUSCULAR HEMOGLOBIN 31.3 pg (27.0-33.0); MEAN CORPUSCULAR HGB CONC 32.6 g/dl (32.0-36.5); MONO # 0.2 10^3/uL (0.0-0.8); MONO % 2.3 % (0.0-5.0); NEUTROPHILS # 8.4 10^3/uL (1.8-7.7); NEUTROPHILS % 89.1 % (36.0-66.0); PLATELET COUNT, AUTOMATED 182 10^3/uL (150-450); RED BLOOD COUNT 4.28 10^6/uL (4.30-6.10); RED CELL DISTRIBUTION WIDTH 12.8 % (11.5-14.5); WHITE BLOOD COUNT 9.4 10^3/uL (4.0-10.0)
[2017-08-30] MEDS: HEPARIN SOD (PORCINE) 5000 UNITS/ML VIAL SC ×2 (06:08)
[2017-08-30 06:30] LABS: ALBUMIN 3.1 GM/DL (3.2-5.2); ALBUMIN/GLOBULIN RATIO 1.11 (1.00-1.93); ALKALINE PHOSPHATASE 43 U/L (45-117); ALT/SGPT 22 U/L (12-78); ANION GAP 6 MEQ/L (8-16); AST/SGOT 19 U/L (7-37); BILIRUBIN,TOTAL 0.9 MG/DL (0.2-1.0); BLOOD UREA NITROGEN 17 MG/DL (7-18); CALCIUM LEVEL 8.3 MG/DL (8.8-10.2); CARBON DIOXIDE LEVEL 30 MEQ/L (21-32); CHLORIDE LEVEL 103 MEQ/L (98-107); CREATININE FOR GFR 1.28 MG/DL (0.70-1.30); GLOMERULAR FILTRATION RATE 58.2 (>42); GLUCOSE, FASTING 148 MG/DL (70-100); MAGNESIUM LEVEL 2.3 MG/DL (1.8-2.4); POTASSIUM SERUM 5.3 MEQ/L (3.5-5.1); SODIUM LEVEL 139 MEQ/L (136-145); TOTAL PROTEIN 5.9 GM/DL (6.4-8.2)
[2017-08-30] MEDS: ASPIRIN 81 MG ENTERIC TAB PO ×2 (08:28)
[2017-08-30] MEDS: LISINOPRIL 10 MG TAB PO ×2 (08:29)
[2017-08-30] MEDS: METOPROLOL TART 50 MG TAB PO ×2 (08:30)
[2017-08-30] MEDS: SENOKOT S TAB PO ×2 (08:30)
== END 2017-08-30 10:32 | disposition home or self-care (01) ==
LOC: M SDC 08-30 10:32 → M ED 03:00 → M SDC 12:33 → M MSPAV 14:33
DX: K35.89 Other acute appendicitis (principal); I10 Essential (primary) hypertension; E78.5 Hyperlipidemia, unspecified; Z79.82 Long term (current) use of aspirin; Z79.899 Other long term (current) drug therapy; Z86.73 Personal history of transient ischemic attack (TIA), and cerebral infarction without residual deficits
CPT/HCPCS: 44970

== ENCOUNTER → 2017-12-15 | Outpatient (REF) | payer MEDICARE ==
[2017-12-15 14:19] LABS: BASO % 0.4 % (0.0-1.0); EOS # 0.1 10^3/uL (0.0-0.50); EOS % 1.8 % (0.0-3.0); HEMATOCRIT 43.7 % (42.0-52.0); HEMOGLOBIN 14.4 g/dl (13.5-17.5); IMMATURE GRANULOCYTE % 0.3 % (0-3.0); LYMPH # 1.5 10^3/uL (1.5-4.5); LYMPH % 21.2 % (24.0-44.0); MEAN CORPUSCULAR HEMOGLOBIN 31.3 pg (27.0-33.0); MONO # 0.7 10^3/uL (0.0-0.8); MONO % 10.4 % (0.0-5.0); NEUTROPHILS # 4.6 10^3/uL (1.8-7.7); NEUTROPHILS % 65.9 % (36.0-66.0); PLATELET COUNT, AUTOMATED 205 10^3/uL (150-450); RED CELL DISTRIBUTION WIDTH 12.8 % (11.5-14.5)
[2017-12-15 14:39] LABS: ALBUMIN 3.3 GM/DL (3.2-5.2); ALKALINE PHOSPHATASE 69 U/L (45-117); ALT/SGPT 24 U/L (12-78); ANION GAP 8 MEQ/L (8-16); AST/SGOT 25 U/L (7-37); BILIRUBIN,TOTAL 0.4 MG/DL (0.2-1.0); BLOOD UREA NITROGEN 11 MG/DL (7-18); CALCIUM LEVEL 8.1 MG/DL (8.8-10.2); CARBON DIOXIDE LEVEL 28 MEQ/L (21-32); CHLORIDE LEVEL 105 MEQ/L (98-107); CHOLESTEROL LEVEL 117 MG/DL (<200); CHOLESTEROL RISK RATIO 2.925 (<5); CREATININE FOR GFR 0.91 MG/DL (0.70-1.30); GLOMERULAR FILTRATION RATE > 60.0 (>42); GLUCOSE, FASTING 86 MG/DL (70-100); HDL CHOLESTEROL 40 MG/DL (>40); LDL CHOLESTEROL 56 MG/DL (<100); NON-HDL-C 77 MG/DL; POTASSIUM SERUM 4.7 MEQ/L (3.5-5.1); SODIUM LEVEL 141 MEQ/L (136-145); TOTAL PROTEIN 6.6 GM/DL (6.4-8.2); TRIGLYCERIDES LEVEL 106 MG/DL (<150)
== END ==
LOC: M SFHCSACK 09:34
DX: E78.5 Hyperlipidemia, unspecified (principal); I11.9 Hypertensive heart disease without heart failure; E55.9 Vitamin D deficiency, unspecified; Z79.899 Other long term (current) drug therapy
CPT/HCPCS: 80053

== ENCOUNTER → 2018-06-21 | Outpatient (REF) | payer MEDICARE ==
[~2018-06-21] MED LIST changes: -ASPI1TAB PO; +ASPI81TA26 PO; -DRIS50002 PO; +DRIS50003 PO; +HYDR-3715 PO; +VITA-183 PO; -VITA1CAP2 PO
[2018-06-21 14:39] LABS: ALBUMIN 3.7 GM/DL (3.2-5.2); ALT/SGPT 26 U/L (12-78); BILIRUBIN,TOTAL 0.8 MG/DL (0.2-1.0); BLOOD UREA NITROGEN 17 MG/DL (7-18); CALCIUM LEVEL 8.9 MG/DL (8.8-10.2); CARBON DIOXIDE LEVEL 33 MEQ/L (21-32); CHLORIDE LEVEL 105 MEQ/L (98-107); CHOLESTEROL LEVEL 135 MG/DL (<200); CHOLESTEROL RISK RATIO 3.461 (<5); CREATININE FOR GFR 1.06 MG/DL (0.70-1.30); GLOMERULAR FILTRATION RATE > 60.0 (>42); GLUCOSE, FASTING 96 MG/DL (70-100); HDL CHOLESTEROL 39 MG/DL (>40); LDL CHOLESTEROL 64 MG/DL (<100); NON-HDL-C 96 MG/DL; POTASSIUM SERUM 4.9 MEQ/L (3.5-5.1); SODIUM LEVEL 142 MEQ/L (136-145); TOTAL 25(OH) VITAMIN D 60.6 NG/ML (30.0-100.0); TOTAL PROTEIN 6.7 GM/DL (6.4-8.2); TRIGLYCERIDES LEVEL 160 MG/DL (<150)
[2018-06-21 15:57] LABS: BASO % 0.4 % (0.0-1.0); EOS # 0.2 10^3/uL (0.0-0.50); EOS % 3.3 % (0.0-3.0); HEMATOCRIT 46.4 % (42.0-52.0); HEMOGLOBIN 14.7 g/dl (13.5-17.5); LYMPH # 2.2 10^3/uL (1.5-4.5); MEAN CORPUSCULAR HGB CONC 31.7 g/dl (32.0-36.5); MEAN CORPUSCULAR VOLUME 97.9 fl (80.0-96.0); MONO # 0.6 10^3/uL (0.0-0.8); MONO % 8.6 % (0.0-5.0); NEUTROPHILS # 3.9 10^3/uL (1.8-7.7); NEUTROPHILS % 56.3 % (36.0-66.0); PLATELET COUNT, AUTOMATED 201 10^3/uL (150-450); RED BLOOD COUNT 4.74 10^6/uL (4.30-6.10)
== END ==
LOC: M SFHCSACK 09:16
PROVIDERS: ATTEND Physician Assistant
DX: I11.9 Hypertensive heart disease without heart failure (principal); E78.5 Hyperlipidemia, unspecified; E55.9 Vitamin D deficiency, unspecified; Z86.73 Personal history of transient ischemic attack (TIA), and cerebral infarction without residual deficits

== ENCOUNTER 2018-10-12 16:57 | Observation (INO) | payer MEDICARE ==
[~2018-10-12] VITALS: Ht 167.6 cm; Wt 107.5 kg
[2018-10-12] MEDS ORDERED: VENTAER INH (17:14)
[2018-10-12 17:48] LABS: HEMATOCRIT 44.8 % (42.0-52.0); HEMOGLOBIN 14.6 g/dl (13.5-17.5); MEAN CORPUSCULAR HEMOGLOBIN 32.2 pg (27.0-33.0); MEAN CORPUSCULAR HGB CONC 32.6 g/dl (32.0-36.5); MEAN CORPUSCULAR VOLUME 98.9 fl (80.0-96.0); PLATELET COUNT, AUTOMATED 192 10^3/uL (150-450); RED BLOOD COUNT 4.53 10^6/uL (4.30-6.10); WHITE BLOOD COUNT 5.7 10^3/uL (4.0-10.0)
--- NOTE | 2018-10-12 17:50 | REPVR ---
EXAM: CT Head Without Contrast EXAM DATE/TIME: 10/12/2018 5:29 PM CLINICAL HISTORY: 78 years old, male; Other: TIA TECHNIQUE: Imaging protocol: Computed tomography images of the head without contrast. Radiation optimization: All CT scans at this facility use at least one of these dose optimization techniques: automated exposure control; mA and/or kV adjustment per patient size (includes targeted exams where dose is matched to clinical indication); or iterative reconstruction. Other technique: STROKE PROTOCOL was implemented. COMPARISON: No relevant prior studies available. FINDINGS: Brain: Global cerebral atrophy is consistent with patient's age. Decreased attenuation within the white matter tracts of both cerebral hemispheres is nonspecific but typically seen with small vessel disease/chronic white matter ischemic changes of aging. No intracranial hemorrhage or mass effect. No CT scan evidence of acute stroke. 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 Ventricles: Unremarkable. No ventriculomegaly. Bones/joints: Unremarkable. No acute fracture. Sinuses: Partial opacification of the left sphenoid sinus with increased density material likely secondary to chronic sinus disease. Tiny mucus retention cyst within the right sphenoid sinus. Mastoid air cells: Visualized mastoid air cells are well aerated. No mastoid effusion. Soft tissues: Unremarkable. IMPRESSION: No acute abnormality. ASSESSMENT: ASPECTS (Irene Stroke Program Early CT Score) is 10. Electronically signed by: Roque Lopez On 10/12/2018 17:49:51 PM
[2018-10-12 17:53] LABS: INR 1.05; PROTHROMBIN TIME 13.4 SECONDS (11.8-14.0)
[2018-10-12 17:54] LABS: PARTIAL THROMBOPLASTIN TIME 24.1 SECONDS (25.0-38.4)
[2018-10-12 17:59] LABS: BLOOD UREA NITROGEN 17 MG/DL (7-18); CALCIUM LEVEL 9.2 MG/DL (8.8-10.2); CARBON DIOXIDE LEVEL 31 MEQ/L (21-32); CHLORIDE LEVEL 109 MEQ/L (98-107); CK-MB VALUE MASS 2.2 NG/ML (<3.6); CPK CREATINE PHOSPHOKINASE 106 U/L (39-308); CREATININE FOR GFR 1.01 MG/DL (0.70-1.30); GLOMERULAR FILTRATION RATE > 60.0 (>42); GLUCOSE, FASTING 95 MG/DL (70-100); MB/CK RELATIVE INDEX 2.08 (< OR =4); POTASSIUM SERUM 4.7 MEQ/L (3.5-5.1); SODIUM LEVEL 144 MEQ/L (136-145); TROPONIN I 0.02 NG/ML (< 0.10)
--- NOTE | 2018-10-12 18:16 | REP ---
CHEST, SINGLE VIEW: Single view of the chest was performed and compared to prior study 03/02/2017. I see no evidence of acute infiltrate or pulmonary edema. The cardiomediastinal silhouette appears magnified AP technique and apical lordotic projection. IMPRESSION: No acute infiltrate. Electronically Signed by Kyle Agudelo MD 10/12/2018 07:13 P
[2018-10-12] MEDS ORDERED: CALTTAB6 PO (18:47)
[2018-10-12] MEDS ORDERED: MOM 30ML SUSPENSION UDC PO PRN (20:45)
[2018-10-12] MEDS ORDERED: MAALOX 30 ML SUSP *UDC PO PRN (20:45)
[2018-10-12] MEDS ORDERED: ACETAMINOPHEN TAB 650MG DOSE (2X325MG) PO PRN (20:45)
[2018-10-12] MEDS ORDERED: ATORVASTATIN 20 MG TAB PO ONE (21:00)
[2018-10-12] MEDS ORDERED: ASPIRIN 325 MG TAB PO ONE (21:00)
[2018-10-12] MEDS ORDERED: ALBUTEROL 90 MCG/ACT 8GM HFA INHALER INH PRN (21:00)
--- NOTE | 2018-10-12 21:02 | ECGEPIP ---
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
--- NOTE | 2018-10-12 21:10 | HPEPDOC ---
General Date of Admission 10/12/18 Date of Service: Oct 12, 2018 Attending Physician: JAMAR CORONEL MD Chief Complaint The patient is a 78-year-old male admitted with a reason for visit of S/S Stroke . Source: Patient Exam Limitations: No limitations Timing/Duration: Day(s) (today's) Severity: Mild Associated Symptoms: Other (reading of speech) History of Present Illness 78 years old male with past medical history of CVA 2013, hard of hearing, right common Coppertone syndrome repair, arthritis, hyperlipidemia, hypertension, cardiac disease was in usual state of health until yesterday. Last night when he tried to order food at a diner and he knows that he had slurred speech and the rectus was unable to understand him. Symptoms lasted for half hour then resolved spontaneously. . No chest pain, no nausea, vomiting, no shortness of breath. No dizziness. 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/Sai/Bor (Caltrate 600+D Plus Tablet) 1 Each Tablet, 1 TAB PO BID, (Reported) Ergocalciferol (Vitamin D2) (Drisdol) 50,000 Unit Cap, 50,000 UNIT PO QWEEK, (Reported) TUESDAY Lisinopril (Lisinopril) 10 Mg Tab, 10 MG PO DAILY, (Reported) Metoprolol Tartrate (Lopressor) 50 Mg Tab, 50 MG PO BID, (Reported) Simvastatin (Simvastatin) 20 Mg Tab, 20 MG PO QHS, (Reported) Scheduled PRN Albuterol Sulfate (Ventolin Hfa) 18 Gm Hfa.aer.ad, 2 PUFF INH Q6H PRN for SHORTNESS OF BREATH, (Reported) Allergies Coded Allergies: No Known Allergies (Unverified , 12/21/16) Past Medical History Medical History CVA in 2013, hypertension, hyperlipidemia, carpal tunnel syndrome Surgical History , Carpal tunnel syndrome repair, appendectomy Family History Significant Family History: Other (. Mother had a stroke) Social History * Smoker: former Smoker Alcohol: Denies Drugs: denies Psychosocial History: No pertinent psych hx A-FIB/CHADSVASC A-FIB History Current/History of A-Fib/PAF?: No Review of Systems Constitutional: Denies: Chills, Fever, Malaise, Night Sweats, Weakness, Fatigue, Weight Loss, Lethargy, Other Eyes: Denies: Pain, Vision change, Conjunctivae inflammation, Eyelid inflammation, Redness, Other ENT: Denies: Head Aches, Ear Pain, Dysphagia, Sinus Congestion, Post Nasal Drip, Sore Throat, Epistaxis, Other Symptoms Skin: Denies: Rash, Lesions, Jaundice, Bruising, Itching, Dry, Breakdown, Nail Changes, Other Pulmonary: Denies: Dyspnea, Cough, Pleuritic Chest Pain, Other Symptoms Cardiovascular: Denies: Chest Pain, Palpitations, Orthopnea, Paroxysmal Noc. Dyspnea, Edema, Lt Headedness, Other Symptoms Gastrointestinal: Denies: Nausea, Vomiting, Abdominal Pain, Diarrhea, Constipation, Melena, Hematochezia, Other Symptoms Genitourinary: Denies: Dysuria, Frequency, Incontinence, Hematuria, Retention, Other Symptoms Hematologic: Denies: Bruising, Bleeding Excessively, Petecchia, Purpura, Enlarged Lymph Nodes, Other Hematologic Endocrine: Denies: Polydipsia, Polyphagia, Polyuria, Heat Intolerance, Cold Intolerance, Other Endocrine Sx Musculoskeletal: Denies: Neck Pain, Back Pain, Shoulder Pain, Arm Pain, Hand Pain, Leg Pain, Foot Pain, Joint Pain, Muscle Pain, Spasms, Other Symptoms Neurological: Reports: Other Symptoms (, slurred speech) Psych: Denies: Mood Normal, Anxiety, Depression, Memory Issues, Thoughts of Self Harm, Anger, Thoughts of Harming Other, Other Psych Physical Examination General Exam: Positive: Alert, Cooperative Eye Exam: Positive: PERRLA, Conjunctiva & lids normal ENT Exam: Positive: Atraumatic, Mucous membr. moist/pink Neck Exam: Positive: Supple Chest Exam: Positive: Clear to auscultation, Normal air movement Heart Exam: Positive: Rate Normal, Normal S1, Normal S2 Abdomen Exam: Positive: Normal bowel sounds, Soft Extremity Exam: Positive: Edema Skin Exam: Positive: Nl turgor and temperature Neuro Exam: Positive: Normal Speech, Strength at 5/5 X4 ext, Normal Tone, Cranial Nerves 3-12 NL Psych Exam: Positive: Mental status NL, Mood NL, Oriented x 3 Vital Signs Vital Signs Date Time Temp Pulse Resp B/P (MAP) Pulse Ox O2 Delivery O2 Flow Rate FiO2 10/12/18 19:30 67 18 125/68 (87) 97 Room Air 10/12/18 17:20 98.0 Laboratory Data Labs 24H Laboratory Tests 2 10/12/18 17:19: Nucleated Red Blood Cells % (auto) 0.0, Prothrombin Time 13.4, Prothromb Time International Ratio 1.05, Activated Partial Thromboplast Time 24.1L, Anion Gap 4L, Glomerular Filtration Rate > 60.0, Blood Urea Nitrogen 17, Creatinine 1.01, Sodium Level 144, Potassium Level 4.7, Chloride Level 109H, Carbon Dioxide Level 31, Calcium Level 9.2, Total Creatine Kinase 106, Creatine Kinase MB 2.2, Creatine Kinase MB Relative Index 2.08, Troponin I 0.02 CBC/BMP Laboratory Tests 10/12/18 17:19 Red Blood Count 4.53, Mean Corpuscular Volume 98.9 H, Mean Corpuscular Hemoglobin 32.2, Mean Corpuscular Hemoglobin Concent 32.6, Red Cell Distribution Width 12.2, Calcium Level 9.2, Total Creatine Kinase 106 Problems (1) TIA (transient ischemic attack) Status: Acute Problem Text: 78 years old male with past medical history of CVA on aspirin and a statin presented with new symptoms of TIA Patient is asymptomatic with no neurological changes present at the present time Admit patient to telemetry for monitoring Saline lock Continue aspirin 325 daily Continue Zocor as per home dose Continue all other home meds Echocardiogram Bilateral carotid Dopplers CT head is essentially negative Physical therapy evaluation in a.m. DVT prophylaxis with bilateral SCDs Diet is 2 g sodium If the workup was negative and cleared by physical therapy. He can be discharged home on current regimen Note: Please follow-up lipid profile in a.m. laboratory work (2) HTN (hypertension) Status: Chronic Problem Text: Under control. Continue present meds (3) Hyperlipemia Status: Chronic Problem Text: Continue home dose of Zocor Fasting lipid have been ordered (4) Obesity Problem Text: Diet and exercise counseling done Plan / VTE VTE Prophylaxis Ordered?: Yes JAMAR CORONEL MD Oct 12, 2018 21:10
--- NOTE | 2018-10-12 21:46 | REPVR ---
EXAM: MR Head Without Contrast EXAM DATE/TIME: 10/12/2018 8:49 PM CLINICAL HISTORY: 78 years old, male; Speech disturbance and other: Stroke in the past, TIA symptoms; Slurred speech TECHNIQUE: Imaging protocol: MR of the head without contrast. COMPARISON: CT Head without contrast 10/12/2018 5:34 PM FINDINGS: Brain: No acute stroke or intracranial hemorrhage identified. Global cerebral atrophy is consistent with patient's age. There is an old right frontoparietal infarct with encephalomalacia and gliosis. T2 FLAIR signal hyperintensities within the white matter tracts of both cerebral hemispheres are nonspecific, but typically seen with small vessel disease/chronic white matter ischemic changes of aging. No intracranial mass or mass effect. No abnormal intra-axial or extra-axial fluid collections. There are normal signal flow voids within the internal carotid and basilar arteries. Brainstem: The cerebellum and brainstem are unremarkable. Ventricles: Ventriculomegaly is consistent with global cerebral atrophy. Bones/joints: Low signal soft tissue measuring 15 mm long by 9 mm AP by 16 mm, transverse posterior to the dens, with posterior dens erosion, consistent with inflammatory versus crystal deposition arthritis. Mild basilar invagination with the tip of the dens abutting the clivus. Soft tissues: Unremarkable. Sinuses: There is mucosal thickening and material within the left maxillary sinus, consistent with sinus inflammatory disease, likely chronic. Small mucus retention cyst within the right maxillary sinus. Mastoid air cells: Normal as visualized. No mastoid effusion. Orbits: Unremarkable. Left lens transplant. IMPRESSION: 1. No acute abnormality. 2. Global cerebral atrophy, consistent with patient's age. 3. Nonspecific white matter signal hyperintensities typically seen with small vessel disease/chronic white matter ischemic changes of aging. 4. Old small right frontoparietal infarct. Electronically signed by: Roque Lopez On 10/12/2018 21:46:39 PM
[2018-10-12] MEDS: METOPROLOL TART 50 MG TAB PO SCH (21:52)
[2018-10-12] MEDS: DOCUSATE SODIUM 100 MG CAP PO SCH (21:52)
[2018-10-12] MEDS: SIMVASTATIN 20 MG TAB PO SCH (21:52)
--- NOTE | 2018-10-12 22:01 | REPVR ---
EXAM: MR Angiogram Head Without Contrast, Arteries EXAM DATE/TIME: 10/12/2018 8:49 PM CLINICAL HISTORY: 78 years old, male; Speech disturbance; Slurred speech; Patient HX: Stroke in the past; Additional info: TIA TECHNIQUE: Imaging protocol: MR angiogram head without contrast. Exam focused on the arteries. COMPARISON: CT Head without contrast 10/12/2018 5:34 PM FINDINGS: Right internal carotid artery: Unremarkable. Intracranial segment is patent with no significant stenosis. No aneurysm. Right anterior cerebral artery: Unremarkable. No occlusion or significant stenosis. No aneurysm. Right middle cerebral artery: Unremarkable. No occlusion or significant stenosis. No aneurysm. Right posterior cerebral artery: Unremarkable. No occlusion or significant stenosis. No aneurysm. Right vertebral artery: Unremarkable. No occlusion or significant stenosis. No aneurysm. Left internal carotid artery: Unremarkable. Intracranial segment is patent with no significant stenosis. No aneurysm. Left anterior cerebral artery: Unremarkable. No occlusion or significant stenosis. No aneurysm. Left middle cerebral artery: Unremarkable. No occlusion or significant stenosis. No aneurysm. Left posterior cerebral artery: Unremarkable. No occlusion or significant stenosis. No aneurysm. Left vertebral artery: Unremarkable. No occlusion or significant stenosis. No aneurysm. Basilar artery: Unremarkable. No occlusion or significant stenosis. No aneurysm. Brain: Global cerebral atrophy is consistent with patient's age. No shift of midline structures is present. Ventricles: This there is a colloid cyst, measuring 5.5 mm within the third ventricle at the foramen of Booker. Enlargement of the lateral ventricles may be out of proportion to the mild enlargement of the third ventricle. The fourth ventricle has a normal appearance. IMPRESSION: 1. No intracranial arterial stenosis, occlusion or aneurysm identified. 2. 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 There is enlargement of the right and left lateral ventricles. While this is likely secondary to global cerebral atrophy, hydrocephalus, is not excluded. Electronically signed by: Roque Lopez On 10/12/2018 22:01:32 PM
--- NOTE | 2018-10-12 22:10 | REPVR ---
EXAM: US Duplex Bilateral Extracranial Arteries EXAM DATE/TIME: 10/12/2018 9:29 PM CLINICAL HISTORY: 78 years old, male; Other: TIA TECHNIQUE: Imaging protocol: Real-time Duplex ultrasound scan of the Bilateral carotid and vertebral arteries combining zarate scale, color Doppler and spectral waveform analysis. COMPARISON: CT Head without contrast 10/12/2018 5:34 PM FINDINGS: Right common carotid artery: Unremarkable. No occlusion or stenosis. Waveforms are normal. PSV 109.1 cm/s. Right internal carotid artery: Moderate calcified and soft plaque. No occlusion or stenosis. Waveforms are normal. PSV 58.5 cm/s. Right ICA/CCA ratio: Within normal limits. Right ICA/CCA ratio 0.54. Right external carotid artery: No stenosis in the origin. Right vertebral artery: Unremarkable. Antegrade flow. Left common carotid artery: Unremarkable. No occlusion or stenosis. Waveforms are normal. PSV 107.1 cm/s. Left internal carotid artery: Moderate calcified and soft plaque. No occlusion or stenosis. Waveforms are normal. PSV 65.6 cm/s. Left ICA/CCA ratio: Within normal limits. Left ICA/CCA ratio 0.61. Left external carotid artery: No stenosis in the origin. Left vertebral artery: The left vertebral artery is not visualized. IMPRESSION: 1. Mild right ICA stenosis. 2. Mild left ICA stenosis. COMMENT: Carotid Stenosis Reference using SRU criteria: Mild: less than 50% stenosis. ICA PSV is less than 125 cm/second and plaque or intimal thickening is visible. Moderate: 50-69% stenosis. ICA PSV is 125 to 230 cm/second and plaque is visible. Severe: 70-94% stenosis. ICA PSV is more than 230 cm/second and visible plaque and lumen narrowing are seen. Near occlusion: 95-99% stenosis. ICA PSV is variable and significant plaque and luminal narrowing are seen. Occluded: 100% stenosis. No flow identified. Electronically signed by: Roque Lopez On 10/12/2018 22:10:20 PM
[2018-10-12 22:33] VITALS: BP 155/75
[2018-10-13 04:00] VITALS: BP 127/70
[2018-10-13 05:39] LABS: HEMATOCRIT 40.9 % (42.0-52.0); HEMOGLOBIN 12.8 g/dl (13.5-17.5); MEAN CORPUSCULAR HEMOGLOBIN 31.1 pg (27.0-33.0); MEAN CORPUSCULAR HGB CONC 31.3 g/dl (32.0-36.5); MEAN CORPUSCULAR VOLUME 99.5 fl (80.0-96.0); PLATELET COUNT, AUTOMATED 177 10^3/uL (150-450); RED BLOOD COUNT 4.11 10^6/uL (4.30-6.10); WHITE BLOOD COUNT 5.5 10^3/uL (4.0-10.0)
[2018-10-13 05:52] LABS: ALT/SGPT 23 U/L (12-78); BILIRUBIN,TOTAL 0.3 MG/DL (0.2-1.0); BLOOD UREA NITROGEN 17 MG/DL (7-18); CARBON DIOXIDE LEVEL 32 MEQ/L (21-32); CHLORIDE LEVEL 107 MEQ/L (98-107); CHOLESTEROL LEVEL 116 MG/DL (<200); CHOLESTEROL RISK RATIO 3.135 (<5); CREATININE FOR GFR 0.89 MG/DL (0.70-1.30); GLOMERULAR FILTRATION RATE > 60.0 (>42); GLUCOSE, FASTING 95 MG/DL (70-100); HDL CHOLESTEROL 37 MG/DL (>40); LDL CHOLESTEROL 55 MG/DL (<100); NON-HDL-C 79 MG/DL; SODIUM LEVEL 142 MEQ/L (136-145); TOTAL PROTEIN 5.9 GM/DL (6.4-8.2); TRIGLYCERIDES LEVEL 118 MG/DL (<150)
[2018-10-13 08:00] VITALS: BP 145/73
[2018-10-13 08:30] LABS: CK-MB VALUE MASS 1.9 NG/ML (<3.6); CPK CREATINE PHOSPHOKINASE 83 U/L (39-308); MB/CK RELATIVE INDEX 2.29 (< OR =4); TROPONIN I < 0.02 NG/ML (< 0.10)
[2018-10-13] MEDS: ASPIRIN 81 MG ENTERIC TAB PO SCH (09:35)
[2018-10-13] MEDS: DOCUSATE SODIUM 100 MG CAP PO SCH ×2 (09:35→21:05)
[2018-10-13] MEDS: LISINOPRIL 10 MG TAB PO SCH (09:35)
[2018-10-13] MEDS: METOPROLOL TART 50 MG TAB PO SCH ×2 (09:36→21:05)
[2018-10-13 12:00] VITALS: BP 139/74
[2018-10-13 16:00] VITALS: BP 144/81
--- NOTE | 2018-10-13 16:48 | IPNPDOC ---
Subjective Date Seen The patient was seen on 10/13/18. Subjective Chief Complaint/HPI Tevin was seen and examined this morning while sitting upright in bed. He is eating and drinking without any issues. He has not had a bowel movement since admission. He is using a bedside urinal. He has not attempted to ambulate remaining in bed throughout status far. He states his CVA in 2013 consisted of left facial droop and unstable gait symptoms. General: Reports: Normal Appetite; Denies: Chills, Night Sweats, Other Symptoms (denies feeling lightheaded, denies feeling dizzy) Constitutional: Denies: Fever, Weakness ENT: Denies: Head Aches, Dysphagia Pulmonary: Denies: Dyspnea, Cough Cardiovascular: Denies: Chest Pain, Palpitations Gastrointestinal: Denies: Nausea, Vomiting, Abdominal Pain, Diarrhea Genitourinary: Denies: Dysuria Musculoskeletal: Denies: Arm Pain, Leg Pain Neurological: Denies: Weakness, Numbness, Confusion Objective Physical Examination General Exam: Positive: Alert, Cooperative Eye Exam: Positive: PERRLA, Conjunctiva & lids normal, EOMI; Negative: Sclera icteric ENT Exam: Positive: Mucous membr. 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 1+ pitting edema left lower extremity; mild swelling right lower extremity), Other (bilateral toenail onychomycosis) Skin Exam: Positive: Nl turgor and temperature Neuro Exam: Positive: Normal Speech, Sensation Intact (upper showing lower externa bilaterally), Other (consisted lipsmacking throughout visit, akathisia appearing); Negative: Strength at 5/5 X4 ext (5 out of 5 muscle strength testing upper extremities bilaterally and right lower extremity; 4 out of 5 muscle strength testing left lower extremity), Cranial Nerves 3-12 NL (. On cranial nerve XII testing when tongue was stuck out a deviated to the patient's left side; Cranial nerves III through XI grossly intact) Psych Exam: Positive: Mental status NL, Mood NL, Oriented x 3 Assessment /Plan Problems (1) TIA (transient ischemic attack) Status: Acute Problem Text: -past medical history of CVA (2013) on aspirin and a statin, pre sented yesterday (10/12) with new symptoms of TIA -Patient smoked one pack of cigarettes per day for 20 years and quit 40 years ago -Patient is asymptomatic with no neurological changes/worsening -c/w telemetry monitoring -Hospitalist team consulted neurology due to patient's CVA history and probable TIA while on both aspirin and simvastatin. -Currently on 81 mg aspirin -Continue with home simvastatin -Carotid Doppler vascular ultrasound showed both mild right and left internal carotid artery stenosis; CT head is essentially negative; brain MRI showed no intracranial occlusion or aneurysm -Follow-up lipid profile this morning (10/13) was remarkable only for decreased total HDL (2) HTN (hypertension) Status: Chronic Problem Text: -Currently controlled -Continue with home Lopressor and lisinopril (3) Hyperlipemia Status: Chronic Problem Text: -Continue with home simvastatin -Lipid profile this morning was unremarkable other than a decreased total HDL (4) Obesity Problem Text: -Diet and exercise counseling done upon admission Plan/VTE VTE Prophylaxis Ordered?: Yes Plan I saw and evaluated the patient. I agree with the findings and plan of care as documented in the above note VS, I&O, 24H, Fishbone Vital Signs/I&O Vital Signs Date Time Temp Pulse Resp B/P (MAP) Pulse Ox O2 Delivery O2 Flow Rate FiO2 10/13/18 09:36 66 10/13/18 09:35 145/73 10/13/18 08:00 98.3 20 95 10/12/18 22:15 Room Air I&O- Last 24 Hours up to 6 AM 10/13/18 06:00 Intake Total 340 ml Output Total 200 ml Balance 140 ml Laboratory Data 24H LABS Laboratory Tests 2 10/12/18 17:19: Nucleated Red Blood Cells % (auto) 0.0, Prothrombin Time 13.4, Prothromb Time International Ratio 1.05, Activated Partial Thromboplast Time 24.1L, Anion Gap 4L, Glomerular Filtration Rate > 60.0, Blood Urea Nitrogen 17, Creatinine 1.01, Sodium Level 144, Potassium Level 4.7, Chloride Level 109H, Carbon Dioxide Level 31, Calcium Level 9.2, Total Creatine Kinase 106, Creatine Kinase MB 2.2, Creatine Kinase MB Relative Index 2.08, Troponin I 0.02 10/13/18 05:00: Nucleated Red Blood Cells % (auto) 0.0, Anion Gap 3L, Glomerular Filtration Rate > 60.0, Blood Urea Nitrogen 17, Creatinine 0.89, Sodium Level 142, Potassium Level 4.0, Chloride Level 107, Carbon Dioxide Level 32, Calcium Level 9.0, Total Creatine Kinase 83, Creatine Kinase MB 1.9, Creatine Kinase MB Relative Index 2.29, Troponin I < 0.02, Aspartate Amino Transf (AST/SGOT) 20, Alanine Aminotransferase (ALT/SGPT) 23, Alkaline Phosphatase 60, Total Bilirubin 0.3, Triglycerides Level 118, LDL Cholesterol 55, Total Protein 5.9L, Albumin 3.0L, Magnesium Level 2.0, Albumin/Globulin Ratio 1.03, Total Cholesterol 116, Non-HDL Cholesterol (LDL + VLDL) 79, Total HDL Cholesterol 37L, Cholesterol/HDL Ratio 3.135 CBC/BMP Laboratory Tests 10/12/18 17:19 Red Blood Count 4.53, Mean Corpuscular Volume 98.9 H, Mean Corpuscular Hemoglobin 32.2, Mean Corpuscular Hemoglobin Concent 32.6, Red Cell Distribution Width 12.2, Calcium Level 9.2, Total Creatine Kinase 106 10/13/18 05:00 Red Blood Count 4.11 L, Mean Corpuscular Volume 99.5 H, Mean Corpuscular Hemoglobin 31.1, Mean Corpuscular Hemoglobin Concent 31.3 L, Red Cell Distribution Width 12.3, Calcium Level 9.0, Total Creatine Kinase 83, Aspartate Amino Transf (AST/SGOT) 20, Alanine Aminotransferase (ALT/SGPT) 23, Alkaline Phosphatase 60, Total Bilirubin 0.3, Triglycerides Level 118, LDL Cholesterol 55, Total Protein 5.9 L, Albumin 3.0 L JACY OSPINA PGY-1 Oct 13, 2018 15:53 RANDY TURCIOS MD Oct 14, 2018 17:51
[2018-10-13] MEDS: CLOPIDOGREL 75 MG TAB PO SCH (18:31)
[2018-10-13 20:00] VITALS: BP 139/66
[2018-10-13] MEDS: SIMVASTATIN 20 MG TAB PO SCH (21:05)
--- NOTE | 2018-10-13 23:09 | ECHO ---
DATE OF PROCEDURE: 10/13/2018 REFERRING PHYSICIAN: Bob Suárez MD INDICATION: Transient cerebral ischemia, unspecified. HEIGHT: 168 cm WEIGHT: 109 kg 2D MEASUREMENTS: Ventricular septum: 0.97 cm Posterior wall: 1.02 cm Left ventricle diastole: 5.1 cm Left ventricle systole: 3.6 cm Left atrium: 3.8 cm Inferior vena cava: 2.3 cm (much greater than 50% respiratory variation). DOPPLER MEASUREMENTS: Aortic valve velocity: 106 cm/s LVOT velocity: 76.1 cm/s LVOT VTI: 18.9 cm Mitral E velocity: 46.6 cm/s Mitral A velocity: 76.2 cm/s Mitral deceleration time: 268 ms Very mild tricuspid regurgitation. Estimated right ventricle systolic pressure 31 mmHg assuming a right atrial pressure of 5 mmHg. Pulmonary artery systolic pressure 19-21 mmHg. MITRAL ANNULAR TISSUE DOPPLER: E prime septal: 4.46 cm/s E prime lateral: 8.16 cm/s DESCRIPTION: Rhythm was sinus. This was a moderately technically difficult echocardiogram. No pericardial effusion. This is a 2D, M-mode, color flow Doppler and pulse wave Doppler examination that included mitral annular tissue Doppler. CONCLUSIONS: 1. Normal left ventricle internal dimensions and wall thickness. Normal regional left ventricle (LV) wall motion and wall thickening. Normal LV systolic function. Grade 1 LV diastolic dysfunction (impaired relaxation filling pattern). 2. Mild mitral regurgitation. No mitral regurgitation. 3. Moderately technically difficult echocardiogram. 4. Otherwise normal appearing echocardiogram Doppler.
[2018-10-13 23:59] VITALS: BP 160/87
[2018-10-14 04:00] VITALS: BP 137/73
[2018-10-14 05:40] LABS: HEMATOCRIT 44.8 % (42.0-52.0); HEMOGLOBIN 14.4 g/dl (13.5-17.5); MEAN CORPUSCULAR HEMOGLOBIN 31.7 pg (27.0-33.0); MEAN CORPUSCULAR HGB CONC 32.1 g/dl (32.0-36.5); MEAN CORPUSCULAR VOLUME 98.7 fl (80.0-96.0); PLATELET COUNT, AUTOMATED 155 10^3/uL (150-450); RED BLOOD COUNT 4.54 10^6/uL (4.30-6.10); WHITE BLOOD COUNT 5.4 10^3/uL (4.0-10.0)
[2018-10-14 06:11] LABS: BLOOD UREA NITROGEN 14 MG/DL (7-18); CALCIUM LEVEL 8.6 MG/DL (8.8-10.2); CARBON DIOXIDE LEVEL 31 MEQ/L (21-32); CHLORIDE LEVEL 106 MEQ/L (98-107); CREATININE FOR GFR 0.88 MG/DL (0.70-1.30); GLOMERULAR FILTRATION RATE > 60.0 (>42); GLUCOSE, FASTING 99 MG/DL (70-100); POTASSIUM SERUM 4.8 MEQ/L (3.5-5.1); SODIUM LEVEL 141 MEQ/L (136-145)
[2018-10-14 07:40] LABS: HEMOGLOBIN A1c 6.5 %
[2018-10-14 08:00] VITALS: BP 143/86
--- NOTE | 2018-10-14 09:14 | CR ---
DATE OF CONSULTATION: 10/13/2018 REFERRING PHYSICIAN: Dr. Bob Suárez REASON FOR CONSULTATION: Slurred speech. HISTORY OF PRESENT ILLNESS: Tevin Keating is a 78-year-old man with history of stroke in 2013 which caused left-sided hemiparesis. The patient improved. He was treated at [facility] at that time. He was at his baseline state of health until Tuesday when he was outside in a restaurant and the cookee noted his speech was slurred. He felt dizzy and off balance. He drove himself home. He believed he should have come to the hospital at that time. He saw his primary care physician the next and had mild slurred speech and imbalance. They referred him to the emergency department. He denies any headache, neck or back pain. He denies any trouble swallowing, drooping of eyelids, shortness of breath, weakness of arms and legs. He denies numbness and weakness of his arms and legs. He denies any falls or loss of consciousness. DIAGNOSTIC STUDIES: His MRI scan of brain showed small vessel ischemic disease of brain, deep cerebral white matter, old ischemic stroke. He also has a 5.5 mm colloid cyst. His occipital horns of ventricles are enlarged. Carotid ultrasound showed mild bilateral carotid artery stenosis. MRA of brain was unremarkable. PAST MEDICAL HISTORY: Ischemic stroke in 2013, dyslipidemia, hypertension, chronic obstructive pulmonary disease (COPD), carpal tunnel syndrome status post surgery, appendectomy. HOME MEDICATIONS: Aspirin 81 mg p.o. daily, lisinopril 10 mg p.o. daily, metoprolol 50 mg p.o. b.i.d., simvastatin 20 mg p.o. daily, multivitamin, vitamin D2 50,000 units once a week, albuterol inhaler. ALLERGIES: None. SOCIAL HISTORY: He denies smoking, alcohol or illicit drugs. He quit smoking many years ago. FAMILY HISTORY: Mother had a stroke. REVIEW OF SYSTEMS: All systems were reviewed and found to be noncontributory except as mentioned in history of present illness. PHYSICAL EXAMINATION: Temperature 97.9, pulse 66, respiratory rate 20, blood pressure 139/74. Heart regular rate and rhythm. Lungs: Clear to auscultation. Abdomen: Soft, nontender, nondistended. No pedal edema. No musculoskeletal abnormalities. No rash. No signs of meningeal irritation. No tremor or dysmetria. The patient is awake, alert, oriented to place, person and time. Normal speech, comprehension and repetition. Extraocular muscles are intact. No facial weakness. Tongue and uvula are midline. No nystagmus. Recent and distant memory is intact. 5/5 strength in upper extremities. Deep tendon flexes 1+ in arms and legs. Gait is normal. There is no dysmetria or ataxia. ASSESSMENT: 1. Suspected transient ischemic attacks. 2. History of right-sided stroke causing left hemiparesis in 2013. 3. Mild carotid artery stenosis. PLAN: 1. Await results of his echocardiogram. 2. Continue aspirin 81 mg p.o. daily and simvastatin 20 mg p.o. daily. His LDL is 55 and HDL is 37. 3. Add Plavix 75 mg p.o. daily. 4. Check vitamin B12, vitamin B1, serum copper, etc. 6. Follow with our office 2-3 weeks after hospital discharge.
[2018-10-14] MEDS: LISINOPRIL 10 MG TAB PO SCH (10:26)
[2018-10-14] MEDS: DOCUSATE SODIUM 100 MG CAP PO SCH (10:26)
[2018-10-14] MEDS: CLOPIDOGREL 75 MG TAB PO SCH (10:26)
[2018-10-14 10:27] VITALS: BP 123/69
[2018-10-14] MEDS: METOPROLOL TART 50 MG TAB PO SCH (10:27)
[2018-10-14] MEDS: ASPIRIN 81 MG ENTERIC TAB PO SCH (10:28)
[2018-10-14] MEDS ORDERED: CLOP75TA2 PO (11:36)
[2018-10-14 12:00] VITALS: BP 145/87
--- NOTE | 2018-10-14 19:52 | DS.PDOC ---
Discharge Summary General Date of Admission Oct 12, 2018 at 16:58 Date of Discharge 10/14/2018 Attending Physician: RANDY TURCIOS MD Specialist/Consultants Involve: XOCHILT CHAPMAN MD Discharge Summary PROCEDURES PERFORMED DURING STAY: None ADMITTING DIAGNOSES: 1. Transient ischemic attack DISCHARGE DIAGNOSES: 1. Transient ischemic attack 2. Essential hypertension 3. Hyperlipidemia 4. Obesity (BMI 38.3) COMPLICATIONS/CHIEF COMPLAINT: Slurred speech HISTORY OF PRESENT ILLNESS: Tevin is a 78yo male with a pertinent past medical history of CVA (2013), hyperlipidemia, and hypertension, who presented to the [facility] ED on the evening of 10/12 with the chief complaint of slurred speech. 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 His symptoms lasted for half hour then resolved spontaneously. He then drove home and went to bed. He woke up on morning and headed to a local medical clinic. After evaluation at the clinic, he was instructed to go to the emergency department immediately. He arrived at the [facility] ED around 4 PM on 10/12. At the time Tevin's H&P admission, he denied any chest pain, feeling nauseated, vomiting, dyspnea, or dizziness. He underwent extensive imaging (head CT, chest x-ray, brain MRI, carotid ultrasound) and an EKG before being admitted for c ontinued observation. HOSPITAL COURSE: Tevin was admitted under the care of the hospitalist team for observation and monitoring of his symptoms. His home aspirin, simvastatin, Lopressor and lisinopril were all continued. Results of imaging were unremarkable for the most part: head CT showed no acute abnormality, chest x-ray showed no acute infiltrate, brain MRI showed no acute intracranial occlusion or aneurysm, while vascular ultrasound showed mild internal carotid artery stenosis bilaterally. On hospitalist team. 10/13, review of systems Tevin denied having difficulty finding words, cloudy thinking, weakness, numbness, paresthesia, dysphasia, dizziness, or feeling lightheaded. Neurology was consulted and evaluated Tevin on 10/13. Neurology's assessment was Tevin suffered a suspected transient ischemic attack. A second antiplatelet medication is added to his regimen in the form of Plavix (75 mg). Neurology also ordered an echocardiogram which showed grade I left ventricular diastolic dysfunction, specifically impaired relaxation filling, as well as mild mitral regurgitation. PT was c onsulted and signed off on his ambulatory capability as it pertains to success on discharge. DISCHARGE MEDICATIONS: Please see below. ALLERGIES: Please see below. PHYSICAL EXAMINATION ON DISCHARGE: VITAL SIGNS: Please see below. General Exam: Positive: Alert, Cooperative Eye Exam: Positive: PERRLA, Conjunctiva & lids normal, EOMI; Negative: Sclera icteric ENT Exam: Positive: Mucous membr. 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 1+ pitting edema left lower extremity; mild swelling right lower extremity), Other (bilateral toenail onychomycosis) Skin Exam: Positive: Nl turgor and temperature Neuro Exam: Positive: Normal Speech, Sensation Intact (upper showing lower externa bilaterally), Other (consisted lipsmacking throughout visit, akathisia appearing); Negative: Strength at 5/5 X4 ext (5 out of 5 muscle strength testing upper extremities bilaterally and right lower extremity; 4 out of 5 muscle strength testing left lower extremity), Cranial Nerves 3-12 NL (. On cranial nerve XII testing when tongue was stuck out a deviated to the patient's left side; Cranial nerves III through XI grossly intact) Psych Exam: Positive: Mental status NL, Mood NL, Oriented x 3 LABORATORY DATA: Please see below. IMAGING: Head CT, 10/12 showed no acute abnormality Chest x-ray, 10/12 showed no acute infiltrate Brain MRI, 10/12 showed no intracranial arterial stenosis, occlusion or aneurysm identified. 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 There is enlargement of the right and left lateral ventricles. While this is likely secondary to global cerebral atrophy, hydrocephalus is not excluded. Vascular duplex carotid ultrasound, 10/12 showed mild right ICA stenosis and mild left ICA stenosis Echocardiogram, 10/13 showed normal left ventricle internal dimensions and wall thickness. Normal regional left ventricle (LV) wall motion and wall thickening. Normal LV systolic function. Grade 1 LV diastolic dysfunction (impaired relaxation filling pattern). Mild mitral regurgitation. No mitral regurgitation. Moderately technically difficult echocardiogram. PROGNOSIS: Fair ACTIVITY: As tolerated DIET: As tolerated DISPOSITION: 01 Home, Self-Care. DISCHARGE INSTRUCTIONS & OUTPATIENT FOLLOW-UP: 1. Patient is to follow-up with primary care physician in the next 7-10 days. 2. Patient is to follow-up with [facility] neurology in the next 2-3 weeks 3. Patient is instructed to return to the emergency department if his presenting symptoms on this admission should reappear and/or worsen, or if he should experience an emergent medical situation. DISCHARGE CONDITION: Stable TIME SPENT ON DISCHARGE: I saw and evaluated the patient. I agree with the findings and plan of care as documented in the documenters note. I spent 45 minutes coordinating this patient's discharge. Vital Signs/I&Os Vital Signs Date Time Temp Pulse Resp B/P (MAP) Pulse Ox O2 Delivery O2 Flow Rate FiO2 10/14/18 12:00 97.7 71 20 145/87 (106) 96 10/12/18 22:15 Room Air I&O- Last 24 Hours up to 6 AM 10/14/18 06:00 Intake Total 880 ml Output Total 1725 ml Balance -845 ml Laboratory Data Labs 24H Laboratory Tests 2 10/14/18 05:16: Nucleated Red Blood Cells % (auto) 0.0, Anion Gap 4L, Glomerular Filtration Rate > 60.0, Blood Urea Nitrogen 14, Creatinine 0.88, Sodium Level 141, Potassium Level 4.8, Chloride Level 106, Carbon Dioxide Level 31, Calcium Level 8.6L, Thyroid Stimulating Hormone (TSH) 1.170 10/14/18 05:31: Estimated Mean Plasma Glucose 140H, Hemoglobin A1c 6.5 CBC/BMP Laboratory Tests 10/14/18 05:16 Red Blood Count 4.54, Mean Corpuscular Volume 98.7 H, Mean Corpuscular Hemoglobin 31.7, Mean Corpuscular Hemoglobin Concent 32.1, Red Cell Distribution Width 12.2, Calcium Level 8.6 L Discharge Medications Scheduled Aspirin (Aspirin EC) 81 Mg Tab, 81 MG PO DAILY, (Reported) [place]/D3/Mag11/Zinc/Bottle Label Inspector/Sai/Bor (Caltrate 600+D Plus Tablet) 1 Each Tablet, 1 TAB PO BID, (Reported) Clopidogrel Bisulfate (Clopidogrel) 75 Mg Tablet, 75 MG PO DAILY Ergocalciferol (Vitamin D2) (Drisdol) 50,000 Unit Cap, 50,000 UNIT PO QWEEK, (Reported) TUESDAY Lisinopril (Lisinopril) 10 Mg Tab, 10 MG PO DAILY, (Reported) Metoprolol Tartrate (Lopressor) 50 Mg Tab, 50 MG PO BID, (Reported) Simvastatin (Simvastatin) 20 Mg Tab, 20 MG PO QHS, (Reported) Scheduled PRN Albuterol Sulfate (Ventolin Hfa) 18 Gm Hfa.aer.ad, 2 PUFF INH Q6H PRN for SHORTNESS OF BREATH, (Reported) Allergies Coded Allergies: No Known Allergies (Unverified , 12/21/16) JACY OSPINA PGY-1 Oct 14, 2018 19:40 RANDY TURCIOS MD Oct 16, 2018 16:38
[2018-10-24 14:07] LABS: ACETYLCHOLINE RCPTOR BINDING A < 0.03 nmol/L (0.00-0.24); ACETYLCHOLINE RCPTOR BLOCK AB 12 % (0-25); ACETYLCHOLINE RCPTOR MODULATIN <12 % (0-20); COPPER PLASMA 67 ug/dL (72-166); VITAMIN B1 LEVEL WHOLE BLOOD 128.4 nmol/L (66.5-200.0)
== END 2018-10-14 13:50 | disposition home or self-care (01) ==
LOC: M ED 16:57 → M ED INP 16:58 → M PCU 22:41
PROVIDERS: ADMIT Internal Medicine; ATTEND Internal Medicine
DX: G45.9 Transient cerebral ischemic attack, unspecified (principal); I11.0 Hypertensive heart disease with heart failure; E78.5 Hyperlipidemia, unspecified; E66.9 Obesity, unspecified; Z68.38 Body mass index [BMI] 38.0-38.9, adult; I67.82 Cerebral ischemia; I69.354 Hemiplegia and hemiparesis following cerebral infarction affecting left non-dominant side; I50.31 Acute diastolic (congestive) heart failure; I34.0 Nonrheumatic mitral (valve) insufficiency; R47.81 Slurred speech; M19.90 Unspecified osteoarthritis, unspecified site; J44.9 Chronic obstructive pulmonary disease, unspecified; Z87.891 Personal history of nicotine dependence; Z79.899 Other long term (current) drug therapy; Z79.82 Long term (current) use of aspirin; Z79.02 Long term (current) use of antithrombotics/antiplatelets
CPT/HCPCS: 36415; 70450; 70544; 70551; 71045; 80048; 80053; 80061; 82525; 82550; 82553; 82607; 83036; 83519; 83735; 84425; 84443; 84484; 85027; 85610; 85730; 93005; 93306; 93880; 97116; 97161; 99285; G0378; G0463

== ENCOUNTER → 2019-01-11 | Outpatient (REF) | payer MEDICARE ==
[~2019-01-11] MED LIST changes: +CALTTAB6 PO; +CLOP75TA2 PO; +VENTAER INH
[2019-01-11 16:44] LABS: BASO % 0.3 % (0.0-1.0); EOS # 0.1 10^3/uL (0.0-0.5); EOS % 2.1 % (0.0-3.0); HEMATOCRIT 44.9 % (42.0-52.0); HEMOGLOBIN 14.5 g/dl (13.5-17.5); LYMPH # 1.8 10^3/uL (1.5-5.0); LYMPH % 29.1 % (24.0-44.0); MEAN CORPUSCULAR HEMOGLOBIN 31.8 pg (27.0-33.0); MEAN CORPUSCULAR HGB CONC 32.3 g/dl (32.0-36.5); MEAN CORPUSCULAR VOLUME 98.5 fl (80.0-96.0); MONO # 0.6 10^3/uL (0.0-0.8); MONO % 9.9 % (0.0-5.0); NEUTROPHILS # 3.6 10^3/uL (1.5-8.5); NEUTROPHILS % 58.1 % (36.0-66.0); PLATELET COUNT, AUTOMATED 186 10^3/uL (150-450); RED BLOOD COUNT 4.56 10^6/uL (4.30-6.10); WHITE BLOOD COUNT 6.2 10^3/uL (4.0-10.0)
[2019-01-11 16:51] LABS: ALBUMIN 3.6 GM/DL (3.2-5.2); ALT/SGPT 31 U/L (12-78); BILIRUBIN,TOTAL 0.7 MG/DL (0.2-1.0); BLOOD UREA NITROGEN 17 MG/DL (7-18); CALCIUM LEVEL 9.5 MG/DL (8.8-10.2); CARBON DIOXIDE LEVEL 34 MEQ/L (21-32); CHLORIDE LEVEL 103 MEQ/L (98-107); CHOLESTEROL LEVEL 141 MG/DL (<200); CHOLESTEROL RISK RATIO 3.439 (<5); CREATININE FOR GFR 0.98 MG/DL (0.70-1.30); GLOMERULAR FILTRATION RATE > 60.0 (>42); GLUCOSE, FASTING 91 MG/DL (70-100); HDL CHOLESTEROL 41 MG/DL (>40); LDL CHOLESTEROL 68 MG/DL (<100); NON-HDL-C 100 MG/DL; POTASSIUM SERUM 4.7 MEQ/L (3.5-5.1); SODIUM LEVEL 140 MEQ/L (136-145); TOTAL PROTEIN 6.7 GM/DL (6.4-8.2); TRIGLYCERIDES LEVEL 158 MG/DL (<150)
[2019-01-11 16:59] LABS: TOTAL 25(OH) VITAMIN D 50.3 NG/ML (30.0-100.0)
== END ==
LOC: M SFHCSACK 08:03
PROVIDERS: ATTEND Physician Assistant
DX: I11.9 Hypertensive heart disease without heart failure (principal); E78.5 Hyperlipidemia, unspecified; Z12.5 Encounter for screening for malignant neoplasm of prostate; E55.9 Vitamin D deficiency, unspecified
CPT/HCPCS: 36415; 80053; 80061; 82306; 85025; G0103

== ENCOUNTER → 2019-08-01 | Outpatient (REF) | payer MEDICARE ==
[~2019-08-01] MED LIST changes: -LISI-542 PO; +LISI-898 PO; +LISI10TA22 PO; -LISI10TA4 PO; -SIMV20TA2 PO; +SIMV20TA22 PO
[2019-08-01 13:12] LABS: BASO % 0.5 % (0.0-1.0); EOS # 0.1 10^3/uL (0.0-0.5); EOS % 2.1 % (0.0-3.0); HEMATOCRIT 44.1 % (42.0-52.0); HEMOGLOBIN 14.1 g/dl (13.5-17.5); LYMPH # 1.5 10^3/uL (1.5-5.0); LYMPH % 23.7 % (24.0-44.0); MEAN CORPUSCULAR HEMOGLOBIN 31.7 pg (27.0-33.0); MEAN CORPUSCULAR VOLUME 99.1 fl (80.0-96.0); MONO # 0.7 10^3/uL (0.0-0.8); MONO % 11.3 % (0.0-5.0); NEUTROPHILS # 3.8 10^3/uL (1.5-8.5); NEUTROPHILS % 61.7 % (36.0-66.0); PLATELET COUNT, AUTOMATED 199 10^3/uL (150-450); RED BLOOD COUNT 4.45 10^6/uL (4.30-6.10); WHITE BLOOD COUNT 6.1 10^3/uL (4.0-10.0)
[2019-08-01 13:42] LABS: ALBUMIN 3.6 GM/DL (3.2-5.2); ALT/SGPT 40 U/L (12-78); BILIRUBIN,TOTAL 0.5 MG/DL (0.2-1.0); BLOOD UREA NITROGEN 19 MG/DL (7-18); CALCIUM LEVEL 9.4 MG/DL (8.8-10.2); CARBON DIOXIDE LEVEL 30 MEQ/L (21-32); CHLORIDE LEVEL 105 MEQ/L (98-107); CHOLESTEROL LEVEL 150 MG/DL (<200); CHOLESTEROL RISK RATIO 3.846 (<5); CREATININE FOR GFR 1.08 MG/DL (0.70-1.30); GLOMERULAR FILTRATION RATE > 60.0 (>42); GLUCOSE, FASTING 117 MG/DL (70-100); HDL CHOLESTEROL 39 MG/DL (>40); LDL CHOLESTEROL 81 MG/DL (<100); NON-HDL-C 111 MG/DL; POTASSIUM SERUM 4.8 MEQ/L (3.5-5.1); SODIUM LEVEL 141 MEQ/L (136-145); TOTAL 25(OH) VITAMIN D 49.1 NG/ML (30.0-100.0); TOTAL PROTEIN 6.6 GM/DL (6.4-8.2); TRIGLYCERIDES LEVEL 151 MG/DL (<150)
== END ==
LOC: M SFHCPLAZ 09:25
PROVIDERS: ATTEND Family Medicine
DX: I10 Essential (primary) hypertension (principal); E78.5 Hyperlipidemia, unspecified; E55.9 Vitamin D deficiency, unspecified
CPT/HCPCS: 36415; 80053; 80061; 82306; 85025; G0463

== ENCOUNTER → 2021-03-05 | Outpatient (CLI) | payer MEDICARE ==
--- NOTE | 2021-03-05 09:50 | REP ---
INDICATION: BILAT KNEE PAIN. COMPARISON: None. TECHNIQUE: [place] view of the right and left knee FINDINGS: Advanced symmetric bilateral patellofemoral joint space changes include osteophytosis, periarticular sclerosis and joint space narrowing. No obvious anterior swelling. IMPRESSION: Advanced symmetric patellofemoral osteoarthritic changes. <Electronically signed by Dario Glass > 03/05/21 0939
== END ==
LOC: M SOG 08:32
PROVIDERS: ATTEND Orthopaedic Surgery Adult Reconstructive Orthopaedic Surgery
DX: M25.561 Pain in right knee (principal); M25.562 Pain in left knee; M22.2X2 Patellofemoral disorders, left knee; M22.2X1 Patellofemoral disorders, right knee

== ENCOUNTER → 2021-04-27 | Outpatient (CLI) | payer MEDICARE ==
[~2021-04-27] MED LIST changes: -LISI-898 PO; +LISI5TAB11 PO
[2021-04-27 10:38] LABS: BASO % 0.3 % (0.0-1.0); EOS # 0.1 10^3/uL (0.0-0.5); EOS % 1.7 % (0.0-3.0); HEMATOCRIT 46.8 % (42.0-52.0); HEMOGLOBIN 14.7 g/dl (13.5-17.5); LYMPH # 1.9 10^3/uL (1.5-5.0); LYMPH % 30.2 % (24.0-44.0); MEAN CORPUSCULAR HEMOGLOBIN 30.5 pg (27.0-33.0); MEAN CORPUSCULAR HGB CONC 31.4 g/dl (32.0-36.5); MEAN CORPUSCULAR VOLUME 97.1 fl (80.0-96.0); MONO # 0.6 10^3/uL (0.0-0.8); MONO % 9.8 % (2.0-8.0); NEUTROPHILS # 3.7 10^3/uL (1.5-8.5); NEUTROPHILS % 57.7 % (36.0-66.0); PLATELET COUNT, AUTOMATED 187 10^3/uL (150-450); RED BLOOD COUNT 4.82 10^6/uL (4.30-6.10); WHITE BLOOD COUNT 6.4 10^3/uL (4.0-10.0)
[2021-04-27 11:13] LABS: ALBUMIN 3.7 GM/DL (3.2-5.2); ALT/SGPT 30 U/L (12-78); BILIRUBIN,TOTAL 0.7 MG/DL (0.2-1.0); BLOOD UREA NITROGEN 18 MG/DL (7-18); CALCIUM LEVEL 9.5 MG/DL (8.8-10.2); CARBON DIOXIDE LEVEL 31 MEQ/L (21-32); CHLORIDE LEVEL 108 MEQ/L (98-107); CHOLESTEROL LEVEL 132 MG/DL (<200); CHOLESTEROL RISK RATIO 3.567 (<5); CREATININE FOR GFR 1.07 MG/DL (0.70-1.30); GLOMERULAR FILTRATION RATE > 60.0 (>35); GLUCOSE, FASTING 118 MG/DL (70-100); HDL CHOLESTEROL 37 MG/DL (>40); LDL CHOLESTEROL 68 MG/DL (<100); NON-HDL-C 95 MG/DL; POTASSIUM SERUM 4.6 MEQ/L (3.5-5.1); SODIUM LEVEL 144 MEQ/L (136-145); TOTAL PROTEIN 6.8 GM/DL (6.4-8.2); TRIGLYCERIDES LEVEL 134 MG/DL (<150)
[2021-04-27 15:23] LABS: TOTAL 25(OH) VITAMIN D 54.2 NG/ML (30.0-100.0)
== END ==
LOC: M PLALAB 08:31
PROVIDERS: ATTEND Student in an Organized Health Care Education/Training Program
DX: I11.9 Hypertensive heart disease without heart failure (principal); E78.5 Hyperlipidemia, unspecified; E55.9 Vitamin D deficiency, unspecified

== ENCOUNTER → 2021-11-09 | Outpatient (CLI) | payer OTHER | LOC: M PT 09:01 | PROVIDERS: ATTEND Orthopaedic Surgery Adult Reconstructive Orthopaedic Surgery | DX: M17.11 Unilateral primary osteoarthritis, right knee (principal) ==

== ENCOUNTER → 2021-11-24 | Outpatient (CLI) | payer OTHER ==
[~2021-11-24] MED LIST changes: +ERGO500029 PO; +VITA100093 PO
== END ==
LOC: M RAD 11:21
PROVIDERS: ATTEND Orthopaedic Surgery Adult Reconstructive Orthopaedic Surgery
DX: M17.11 Unilateral primary osteoarthritis, right knee (principal)

== ENCOUNTER → 2021-12-03 | Outpatient (CLI) | payer OTHER | LOC: M LABSMTC 09:51 | PROVIDERS: ATTEND Anesthesiology | DX: Z01.818 Encounter for other preprocedural examination (principal); Z11.52 Encounter for screening for COVID-19 ==

== ENCOUNTER 2021-12-08 06:00 | Inpatient (IN) | payer MEDICARE, OTHER ==
[~2021-12-08] VITALS: Ht 167.6 cm; Wt 122.5 kg
[2021-12-08] VITALS (9 sets, daily range): BP systolic 106–120; BP diastolic 54–57; O2SAT 91–96
[~2021-12-08 06:00] MED LIST changes: +ACETAMINOPHEN 500 MG TAB PO ONE; +NAPROXEN 250 MG TAB PO ONE; +NS 1,000 ML IV ONE; +PREGABALIN 25 MG CAP (LYRICA) PO ONE; +ROPIVA 125MG/EPINEPH 0.25MG/CLONID 40MCG/KETOR 15MG IN NS 50ML SYRINGE PA ONE; +ceFAZolin SOD 2 GM in IV 1 EA IV ONE
[2021-12-08] MEDS: dexameTHASONE 4 MG/ML 1ML VIAL (J1100 PER 1MG) IV ONE ×2 (06:00→15:15)
[2021-12-08] MEDS ORDERED: MIDAZOLAM INJ 2MG/2ML VIAL (J2250 PER 1MG) As Ordered ONE (07:20)
[2021-12-08] MEDS ORDERED: fentaNYL 100 MCG/2 ML INJECTION As Ordered ONE (07:20)
[2021-12-08] MEDS ORDERED: propofoL 500 MG/50 ML VIAL As Ordered ONE ×2 (07:20→09:32)
[2021-12-08] MEDS ORDERED: ceFAZolin 1GM VIAL (J0690 PER 500MG) As Ordered ONE (08:02)
[2021-12-08] MEDS: TRANEXAMIC ACID 100 MG/ML 10ML VIAL As Ordered ONE (08:03)
[2021-12-08] MEDS ORDERED: LR 1,000 ML IV SCH ×3 (08:15→12:00)
[2021-12-08] MEDS ORDERED: PHENYLephrine 500MCG 5ML (100MCG/ML) SYRINGE As Ordered ONE ×2 (08:20→08:30)
[2021-12-08] MEDS ORDERED: PHENYLEPHRINE 10MG/ML 1ML VIAL (J2370 PER 1) As Ordered ONE (08:21)
[2021-12-08] MEDS ORDERED: ACETAMINOPHEN 1000MG 100ML IV BTL (OFIRMEV) (J0131 PER 10MG) As Ordered ONE (10:40)
[2021-12-08] MEDS ORDERED: KETOROLAC 60MG 2ML VIAL As Ordered ONE (10:40)
[2021-12-08] MEDS ORDERED: ONDANSETRON 4MG 2ML VIAL IV PRN ×2 (10:55→13:00)
[2021-12-08] MEDS ORDERED: fentaNYL 100 MCG/2 ML INJECTION IV PRN (10:55)
[2021-12-08] MEDS ORDERED: oxyCODONE 5MG TAB PO PRN (10:55)
[2021-12-08] MEDS ORDERED: MORPHINE 2 MG/ML 1ML VIAL IV PRN (10:55)
[2021-12-08] MEDS ORDERED: HOME MED LIST COMPLETE! XX SCH (11:35)
[2021-12-08 11:57] LABS: HEMATOCRIT 38.7 % (42.0-52.0); HEMOGLOBIN 12.1 g/dl (13.5-17.5); MEAN CORPUSCULAR HEMOGLOBIN 30.6 pg (27.0-33.0); MEAN CORPUSCULAR HGB CONC 31.3 g/dl (32.0-36.5); MEAN CORPUSCULAR VOLUME 97.7 fl (80.0-96.0); PLATELET COUNT, AUTOMATED 182 10^3/uL (150-450); RED BLOOD COUNT 3.96 10^6/uL (4.30-6.10); WHITE BLOOD COUNT 5.5 10^3/uL (4.0-10.0)
[2021-12-08 12:10] LABS: INR 1.07; PARTIAL THROMBOPLASTIN TIME 25.5 SECONDS (25.9-37.0); PROTHROMBIN TIME 14.3 SECONDS (12.7-14.5)
[2021-12-08 12:34] LABS: ALBUMIN 2.9 GM/DL (3.2-5.2); ALT/SGPT 22 U/L (12-78); BILIRUBIN,TOTAL 0.3 MG/DL (0.2-1.0); BLOOD UREA NITROGEN 15 MG/DL (7-18); CALCIUM LEVEL 8.4 MG/DL (8.8-10.2); CARBON DIOXIDE LEVEL 31 MEQ/L (21-32); CHLORIDE LEVEL 108 MEQ/L (98-107); CREATININE FOR GFR 1.01 MG/DL (0.70-1.30); GLOMERULAR FILTRATION RATE > 60.0 (>35); GLUCOSE, FASTING 123 MG/DL (70-100); SODIUM LEVEL 143 MEQ/L (136-145); TOTAL PROTEIN 5.1 GM/DL (6.4-8.2)
[2021-12-08] MEDS ORDERED: SENNA 8.6 MG TAB (SENOKOT) PO PRN (13:00)
[2021-12-08] MEDS: oxyCODONE 5MG TAB PO PRN ×2 (13:53→18:28)
[2021-12-08 14:00] LABS: HEMOGLOBIN A1c 6.5 %
[2021-12-08] MEDS: ACETAMINOPHEN TAB 650MG DOSE (2X325MG) PO SCH ×2 (15:07→18:32)
[2021-12-08] MEDS: LR 1,000 ML IV SCH ×2 (15:15→18:33)
[2021-12-08] MEDS: ceFAZolin SOD 2 GM in IV 1 EA IV SCH (16:51)
[2021-12-08] MEDS: NAPROXEN 250 MG TAB PO SCH (20:16)
[2021-12-08] MEDS: SIMVASTATIN 20 MG TAB PO SCH (20:17)
[2021-12-08] MEDS: METOPROLOL TART 50 MG TAB PO SCH (20:17)
[2021-12-08] MEDS: DOCUSATE SODIUM 100MG CAPSULE PO SCH (20:17)
[2021-12-09] VITALS (13 sets, daily range): BP systolic 102–147; BP diastolic 55–69; O2SAT 92–95
[2021-12-09] MEDS: ceFAZolin SOD 2 GM in IV 1 EA IV SCH (01:40)
[2021-12-09] MEDS: ACETAMINOPHEN TAB 650MG DOSE (2X325MG) PO SCH ×4 (01:43→20:15)
[2021-12-09] MEDS: oxyCODONE 5MG TAB PO PRN ×5 (01:43→23:04)
[2021-12-09] MEDS: traMADol 50 MG TAB PO PRN (05:15)
[2021-12-09 06:38] LABS: HEMATOCRIT 40.1 % (42.0-52.0); HEMOGLOBIN 12.4 g/dl (13.5-17.5); MEAN CORPUSCULAR HEMOGLOBIN 30.3 pg (27.0-33.0); MEAN CORPUSCULAR HGB CONC 30.9 g/dl (32.0-36.5); PLATELET COUNT, AUTOMATED 155 10^3/uL (150-450); RED BLOOD COUNT 4.09 10^6/uL (4.30-6.10); WHITE BLOOD COUNT 6.1 10^3/uL (4.0-10.0)
[2021-12-09 07:23] LABS: ALT/SGPT 20 U/L (12-78); BILIRUBIN,TOTAL 0.5 MG/DL (0.2-1.0); BLOOD UREA NITROGEN 18 MG/DL (7-18); CALCIUM LEVEL 8.5 MG/DL (8.8-10.2); CARBON DIOXIDE LEVEL 31 MEQ/L (21-32); CHLORIDE LEVEL 107 MEQ/L (98-107); GLOMERULAR FILTRATION RATE > 60.0 (>35); GLUCOSE, FASTING 132 MG/DL (70-100); POTASSIUM SERUM 4.3 MEQ/L (3.5-5.1); SODIUM LEVEL 140 MEQ/L (136-145); TOTAL PROTEIN 5.7 GM/DL (6.4-8.2)
[2021-12-09] MEDS: DOCUSATE SODIUM 100MG CAPSULE PO SCH ×2 (08:19→20:15)
[2021-12-09] MEDS: FERROUS SULFATE 325MG TAB PO SCH (08:20)
[2021-12-09] MEDS: ASCORBIC ACID 500 MG TAB PO SCH (08:20)
[2021-12-09] MEDS: NAPROXEN 250 MG TAB PO SCH ×2 (08:20→20:21)
[2021-12-09] MEDS: CLOPIDOGREL 75 MG TAB PO SCH (08:20)
[2021-12-09] MEDS: ASPIRIN 81MG ENTERIC TABLET PO SCH (08:20)
[2021-12-09] MEDS: METOPROLOL TART 50 MG TAB PO SCH ×2 (08:23→20:16)
[2021-12-09] MEDS: LR 1,000 ML IV SCH (08:27)
[2021-12-09] MEDS: SIMVASTATIN 20 MG TAB PO SCH (20:15)
[2021-12-10] VITALS (17 sets, daily range): BP systolic 107–138; BP diastolic 58–68; O2SAT 88–94
[2021-12-10] MEDS: ACETAMINOPHEN TAB 650MG DOSE (2X325MG) PO SCH ×4 (00:17→18:18)
[2021-12-10] MEDS: oxyCODONE 5MG TAB PO PRN ×4 (03:07→18:19)
[2021-12-10 05:47] LABS: HEMATOCRIT 39.4 % (42.0-52.0); HEMOGLOBIN 12.3 g/dl (13.5-17.5); MEAN CORPUSCULAR HEMOGLOBIN 30.9 pg (27.0-33.0); MEAN CORPUSCULAR HGB CONC 31.2 g/dl (32.0-36.5); PLATELET COUNT, AUTOMATED 160 10^3/uL (150-450); RED BLOOD COUNT 3.98 10^6/uL (4.30-6.10); WHITE BLOOD COUNT 6.9 10^3/uL (4.0-10.0)
[2021-12-10 06:21] LABS: ALT/SGPT 15 U/L (12-78); BILIRUBIN,TOTAL 0.5 MG/DL (0.2-1.0); BLOOD UREA NITROGEN 20 MG/DL (7-18); CALCIUM LEVEL 8.4 MG/DL (8.8-10.2); CARBON DIOXIDE LEVEL 32 MEQ/L (21-32); CHLORIDE LEVEL 104 MEQ/L (98-107); CREATININE FOR GFR 1.04 MG/DL (0.70-1.30); GLOMERULAR FILTRATION RATE > 60.0 (>35); GLUCOSE, FASTING 138 MG/DL (70-100); POTASSIUM SERUM 4.5 MEQ/L (3.5-5.1); SODIUM LEVEL 140 MEQ/L (136-145); TOTAL PROTEIN 5.6 GM/DL (6.4-8.2)
[2021-12-10] MEDS ORDERED: MOM 30ML SUSPENSION UDC PO PRN (08:10)
[2021-12-10] MEDS: DOCUSATE SODIUM 100MG CAPSULE PO SCH ×2 (08:24→20:35)
[2021-12-10] MEDS: ASPIRIN 81MG ENTERIC TABLET PO SCH (08:25)
[2021-12-10] MEDS: ASCORBIC ACID 500 MG TAB PO SCH (08:25)
[2021-12-10] MEDS: NAPROXEN 250 MG TAB PO SCH ×2 (08:26→20:36)
[2021-12-10] MEDS: CLOPIDOGREL 75 MG TAB PO SCH (08:26)
[2021-12-10] MEDS: METOPROLOL TART 50 MG TAB PO SCH ×2 (08:26→20:37)
[2021-12-10] MEDS: FERROUS SULFATE 325MG TAB PO SCH (08:27)
[2021-12-10] MEDS ORDERED: MOM 30ML SUSPENSION UDC PO ONE (08:30)
[2021-12-10] MEDS: SENNA 8.6 MG TAB (SENOKOT) PO SCH (09:50)
[2021-12-10] MEDS: traMADol 50 MG TAB PO PRN (16:05)
[2021-12-10] MEDS ORDERED: BISACODYL 10 MG SUPP PR ONE (17:25)
[2021-12-10] MEDS: LACTULOSE 20 GM/30 ML SYRUP UD PO SCH (18:19)
[2021-12-10] MEDS: SIMVASTATIN 20 MG TAB PO SCH (20:36)
[2021-12-11] VITALS: O2SAT 92
[2021-12-11 00:09] VITALS: BP 106/55
[2021-12-11] MEDS: ACETAMINOPHEN TAB 650MG DOSE (2X325MG) PO SCH ×3 (00:40→13:06)
[2021-12-11] MEDS: oxyCODONE 5MG TAB PO PRN ×2 (00:40→08:43)
[2021-12-11] MEDS: LACTULOSE 20 GM/30 ML SYRUP UD PO SCH ×3 (01:53→12:00)
[2021-12-11 04:00] VITALS: BP 114/62; O2SAT 92
[2021-12-11] MEDS: traMADol 50 MG TAB PO PRN (06:11)
[2021-12-11 06:23] LABS: HEMATOCRIT 38.1 % (42.0-52.0); MEAN CORPUSCULAR HEMOGLOBIN 31.1 pg (27.0-33.0); MEAN CORPUSCULAR HGB CONC 31.5 g/dl (32.0-36.5); MEAN CORPUSCULAR VOLUME 98.7 fl (80.0-96.0); PLATELET COUNT, AUTOMATED 152 10^3/uL (150-450); RED BLOOD COUNT 3.86 10^6/uL (4.30-6.10); WHITE BLOOD COUNT 6.8 10^3/uL (4.0-10.0)
[2021-12-11 07:01] LABS: ALBUMIN 2.9 GM/DL (3.2-5.2); ALT/SGPT 16 U/L (12-78); BILIRUBIN,TOTAL 0.5 MG/DL (0.2-1.0); BLOOD UREA NITROGEN 23 MG/DL (7-18); CALCIUM LEVEL 8.7 MG/DL (8.8-10.2); CARBON DIOXIDE LEVEL 33 MEQ/L (21-32); CHLORIDE LEVEL 105 MEQ/L (98-107); CREATININE FOR GFR 1.06 MG/DL (0.70-1.30); GLOMERULAR FILTRATION RATE > 60.0 (>35); GLUCOSE, FASTING 114 MG/DL (70-100); POTASSIUM SERUM 4.8 MEQ/L (3.5-5.1); SODIUM LEVEL 138 MEQ/L (136-145); TOTAL PROTEIN 5.6 GM/DL (6.4-8.2)
[2021-12-11] MEDS: DOCUSATE SODIUM 100MG CAPSULE PO SCH ×2 (08:36→20:31)
[2021-12-11] MEDS: SENNA 8.6 MG TAB (SENOKOT) PO SCH (08:42)
[2021-12-11] MEDS: METOPROLOL TART 50 MG TAB PO SCH ×2 (08:42→20:33)
[2021-12-11] MEDS: FERROUS SULFATE 325MG TAB PO SCH (08:42)
[2021-12-11] MEDS: ASPIRIN 81MG ENTERIC TABLET PO SCH (08:42)
[2021-12-11] MEDS: CLOPIDOGREL 75 MG TAB PO SCH (08:43)
[2021-12-11] MEDS: NAPROXEN 250 MG TAB PO SCH ×2 (08:43→20:33)
[2021-12-11] MEDS: ASCORBIC ACID 500 MG TAB PO SCH (08:43)
[2021-12-11 15:20] VITALS: BP 132/69
[2021-12-11] MEDS ORDERED: ACETAMINOPHEN TAB 650MG DOSE (2X325MG) PO PRN (17:45)
[2021-12-11 20:30] VITALS: BP 133/69
[2021-12-11] MEDS: SIMVASTATIN 20 MG TAB PO SCH (20:33)
[2021-12-12] VITALS (8 sets, daily range): BP systolic 136–143; BP diastolic 68–69; O2SAT 91–94
[2021-12-12 06:19] LABS: HEMATOCRIT 38.2 % (42.0-52.0); HEMOGLOBIN 11.7 g/dl (13.5-17.5); MEAN CORPUSCULAR HEMOGLOBIN 30.3 pg (27.0-33.0); MEAN CORPUSCULAR HGB CONC 30.6 g/dl (32.0-36.5); PLATELET COUNT, AUTOMATED 180 10^3/uL (150-450); RED BLOOD COUNT 3.86 10^6/uL (4.30-6.10); WHITE BLOOD COUNT 7.1 10^3/uL (4.0-10.0)
[2021-12-12 06:52] LABS: ALBUMIN 2.9 GM/DL (3.2-5.2); ALT/SGPT 19 U/L (12-78); BILIRUBIN,TOTAL 0.6 MG/DL (0.2-1.0); BLOOD UREA NITROGEN 23 MG/DL (7-18); CALCIUM LEVEL 8.6 MG/DL (8.8-10.2); CARBON DIOXIDE LEVEL 32 MEQ/L (21-32); CHLORIDE LEVEL 105 MEQ/L (98-107); CREATININE FOR GFR 0.87 MG/DL (0.70-1.30); GLOMERULAR FILTRATION RATE > 60.0 (>35); GLUCOSE, FASTING 128 MG/DL (70-100); POTASSIUM SERUM 4.3 MEQ/L (3.5-5.1); SODIUM LEVEL 139 MEQ/L (136-145); TOTAL PROTEIN 5.6 GM/DL (6.4-8.2)
[2021-12-12] MEDS: MIRALAX *UNIT DOSE* 17GM PACKET PO SCH (08:52)
[2021-12-12] MEDS: ASCORBIC ACID 500 MG TAB PO SCH (08:53)
[2021-12-12] MEDS: DOCUSATE SODIUM 100MG CAPSULE PO SCH ×2 (08:53→20:10)
[2021-12-12] MEDS: FERROUS SULFATE 325MG TAB PO SCH (08:53)
[2021-12-12] MEDS: CLOPIDOGREL 75 MG TAB PO SCH (08:54)
[2021-12-12] MEDS: METOPROLOL TART 50 MG TAB PO SCH ×2 (08:54→20:11)
[2021-12-12] MEDS: NAPROXEN 250 MG TAB PO SCH ×2 (08:55→20:12)
[2021-12-12] MEDS: ASPIRIN 81MG ENTERIC TABLET PO SCH (08:55)
[2021-12-12] MEDS: SENNA 8.6 MG TAB (SENOKOT) PO SCH (08:56)
[2021-12-12] MEDS: SIMVASTATIN 20 MG TAB PO SCH (20:10)
[2021-12-13] MEDS: oxyCODONE 5MG TAB PO PRN ×2 (05:30→16:46)
[2021-12-13 06:00] VITALS: BP 124/59
[2021-12-13 06:56] LABS: HEMATOCRIT 35.2 % (42.0-52.0); HEMOGLOBIN 10.9 g/dl (13.5-17.5); MEAN CORPUSCULAR HEMOGLOBIN 30.4 pg (27.0-33.0); MEAN CORPUSCULAR VOLUME 98.1 fl (80.0-96.0); PLATELET COUNT, AUTOMATED 183 10^3/uL (150-450); RED BLOOD COUNT 3.59 10^6/uL (4.30-6.10); WHITE BLOOD COUNT 6.2 10^3/uL (4.0-10.0)
[2021-12-13 07:41] LABS: ALBUMIN 2.9 GM/DL (3.2-5.2); ALT/SGPT 24 U/L (12-78); BILIRUBIN,TOTAL 0.5 MG/DL (0.2-1.0); BLOOD UREA NITROGEN 22 MG/DL (7-18); CALCIUM LEVEL 8.8 MG/DL (8.8-10.2); CARBON DIOXIDE LEVEL 29 MEQ/L (21-32); CHLORIDE LEVEL 106 MEQ/L (98-107); CREATININE FOR GFR 0.83 MG/DL (0.70-1.30); GLOMERULAR FILTRATION RATE > 60.0 (>35); GLUCOSE, FASTING 124 MG/DL (70-100); POTASSIUM SERUM 4.3 MEQ/L (3.5-5.1); SODIUM LEVEL 140 MEQ/L (136-145); TOTAL PROTEIN 5.7 GM/DL (6.4-8.2)
[2021-12-13] MEDS: DOCUSATE SODIUM 100MG CAPSULE PO SCH ×2 (08:58→20:24)
[2021-12-13] MEDS: METOPROLOL TART 50 MG TAB PO SCH ×2 (08:58→20:26)
[2021-12-13] MEDS: ASPIRIN 81MG ENTERIC TABLET PO SCH (08:59)
[2021-12-13] MEDS: NAPROXEN 250 MG TAB PO SCH ×2 (09:00→20:24)
[2021-12-13] MEDS: ASCORBIC ACID 500 MG TAB PO SCH (09:01)
[2021-12-13] MEDS: SENNA 8.6 MG TAB (SENOKOT) PO SCH (09:01)
[2021-12-13] MEDS: FERROUS SULFATE 325MG TAB PO SCH (09:01)
[2021-12-13] MEDS: CLOPIDOGREL 75 MG TAB PO SCH (09:02)
[2021-12-13] MEDS: MIRALAX *UNIT DOSE* 17GM PACKET PO SCH (09:02)
[2021-12-13] MEDS: FUROSEMIDE 40 MG TAB PO SCH (15:05)
[2021-12-13] MEDS: SIMVASTATIN 20 MG TAB PO SCH (20:25)
[2021-12-13 22:00] VITALS: O2SAT 95
[2021-12-14 02:00] VITALS: O2SAT 96
[2021-12-14] MEDS: oxyCODONE 5MG TAB PO PRN ×2 (03:33→13:50)
[2021-12-14 06:00] VITALS: BP 118/55
[2021-12-14 06:20] LABS: HEMATOCRIT 35.1 % (42.0-52.0); HEMOGLOBIN 10.7 g/dl (13.5-17.5); MEAN CORPUSCULAR HEMOGLOBIN 29.9 pg (27.0-33.0); MEAN CORPUSCULAR HGB CONC 30.5 g/dl (32.0-36.5); PLATELET COUNT, AUTOMATED 190 10^3/uL (150-450); RED BLOOD COUNT 3.58 10^6/uL (4.30-6.10); WHITE BLOOD COUNT 6.2 10^3/uL (4.0-10.0)
[2021-12-14 06:56] LABS: ALBUMIN 2.8 GM/DL (3.2-5.2); ALT/SGPT 36 U/L (12-78); BILIRUBIN,TOTAL 0.6 MG/DL (0.2-1.0); BLOOD UREA NITROGEN 21 MG/DL (7-18); CALCIUM LEVEL 8.7 MG/DL (8.8-10.2); CARBON DIOXIDE LEVEL 33 MEQ/L (21-32); CHLORIDE LEVEL 104 MEQ/L (98-107); CREATININE FOR GFR 0.94 MG/DL (0.70-1.30); GLOMERULAR FILTRATION RATE > 60.0 (>35); GLUCOSE, FASTING 113 MG/DL (70-100); POTASSIUM SERUM 4.7 MEQ/L (3.5-5.1); SODIUM LEVEL 139 MEQ/L (136-145); TOTAL PROTEIN 5.6 GM/DL (6.4-8.2)
[2021-12-14] MEDS: MIRALAX *UNIT DOSE* 17GM PACKET PO SCH (09:00)
[2021-12-14] MEDS: SENNA 8.6 MG TAB (SENOKOT) PO SCH (09:00)
[2021-12-14] MEDS: DOCUSATE SODIUM 100MG CAPSULE PO SCH (09:00)
[2021-12-14] MEDS: ASCORBIC ACID 500 MG TAB PO SCH (09:01)
[2021-12-14] MEDS: NAPROXEN 250 MG TAB PO SCH (09:01)
[2021-12-14] MEDS: ASPIRIN 81MG ENTERIC TABLET PO SCH (09:01)
[2021-12-14 09:02] VITALS: BP 118/55
[2021-12-14] MEDS: FERROUS SULFATE 325MG TAB PO SCH (09:02)
[2021-12-14] MEDS: CLOPIDOGREL 75 MG TAB PO SCH (09:02)
[2021-12-14] MEDS: FUROSEMIDE 40 MG TAB PO SCH (09:02)
[2021-12-14] MEDS: METOPROLOL TART 50 MG TAB PO SCH (09:02)
[2021-12-14] MEDS ORDERED: ACET1TAB55 PO (12:11)
[2021-12-14] MEDS ORDERED: TRAM50TA2 PO (12:11)
[2021-12-14] MEDS ORDERED: MIRA1POW3 PO (12:11)
[2021-12-14] MEDS ORDERED: FERR1TAB8 PO (12:11)
[2021-12-14] MEDS ORDERED: COLA100C5 PO (12:11)
[2021-12-14] MEDS ORDERED: SENN18TA PO (12:11)
[2021-12-14] MEDS ORDERED: FURO40TA2 PO (12:11)
[2021-12-14] MEDS ORDERED: OXYC-517 PO (12:11)
== END 2021-12-14 14:00 | DRG 470 ==
LOC: M SDC 06:00 → M ED INP 11:18 → M MS5PR 14:02 → M PCU 15:45 → M MSPAV 12-11 19:01 → M MS5PR 12-12 18:26
PROVIDERS: ADMIT Internal Medicine; ATTEND Internal Medicine
PROC: 8E0Y0CZ Robotic Assisted Procedure of Lower Extremity, Open Approach (ICD-10-PCS; 2021-12-08)
PROC: 0SRC0J9 Replacement of Right Knee Joint with Synthetic Substitute, Cemented, Open Approach (ICD-10-PCS; principal; 2021-12-08 07:30)
DX: M17.11 Unilateral primary osteoarthritis, right knee (principal); I69.354 Hemiplegia and hemiparesis following cerebral infarction affecting left non-dominant side; I10 Essential (primary) hypertension; E78.5 Hyperlipidemia, unspecified; E55.9 Vitamin D deficiency, unspecified; H91.93 Unspecified hearing loss, bilateral; G47.33 Obstructive sleep apnea (adult) (pediatric); E11.9 Type 2 diabetes mellitus without complications; J44.9 Chronic obstructive pulmonary disease, unspecified; M79.89 Other specified soft tissue disorders; I95.81 Postprocedural hypotension; K59.00 Constipation, unspecified; M85.80 Other specified disorders of bone density and structure, unspecified site; Z98.42 Cataract extraction status, left eye; Z96.1 Presence of intraocular lens; Z90.49 Acquired absence of other specified parts of digestive tract; Z79.82 Long term (current) use of aspirin; Z79.02 Long term (current) use of antithrombotics/antiplatelets; Z79.899 Other long term (current) drug therapy; Z87.891 Personal history of nicotine dependence

== ENCOUNTER → 2021-12-21 | Outpatient (CLI) | payer MEDICARE, OTHER ==
[~2021-12-21] MED LIST changes: +ACET1TAB55 PO; -ACETAMINOPHEN 500 MG TAB PO ONE; +COLA100C5 PO; +FERR1TAB8 PO; +FURO40TA2 PO; +MIRA1POW3 PO; -NAPROXEN 250 MG TAB PO ONE; -NS 1,000 ML IV ONE; +OXYC-517 PO; -PREGABALIN 25 MG CAP (LYRICA) PO ONE; -ROPIVA 125MG/EPINEPH 0.25MG/CLONID 40MCG/KETOR 15MG IN NS 50ML SYRINGE PA ONE; +SENN18TA PO; +TRAM50TA2 PO; -ceFAZolin SOD 2 GM in IV 1 EA IV ONE
== END ==
LOC: M SOG 08:06
PROVIDERS: ATTEND Orthopaedic Surgery Adult Reconstructive Orthopaedic Surgery
DX: Z47.89 Encounter for other orthopedic aftercare (principal); Z96.651 Presence of right artificial knee joint

== ENCOUNTER → 2022-01-20 | Outpatient (REF) | payer OTHER, MEDICARE ==
[2022-01-20 11:01] LABS: BASO % 0.2 % (0.0-1.0); EOS # 0.2 10^3/uL (0.0-0.5); EOS % 3.1 % (0.0-3.0); HEMOGLOBIN 11.4 g/dl (13.5-17.5); LYMPH % 20.2 % (24.0-44.0); MONO # 0.6 10^3/uL (0.0-0.8); MONO % 11.6 % (2.0-8.0); NEUTROPHILS # 3.1 10^3/uL (1.5-8.5); NEUTROPHILS % 64.5 % (36.0-66.0); PLATELET COUNT, AUTOMATED 217 10^3/uL (150-450); WHITE BLOOD COUNT 4.8 10^3/uL (4.0-10.0)
[2022-01-20 11:41] LABS: ALBUMIN 2.9 GM/DL (3.2-5.2); ALT/SGPT 23 U/L (12-78); BILIRUBIN,TOTAL 0.5 MG/DL (0.2-1.0); BLOOD UREA NITROGEN 13 MG/DL (7-18); CALCIUM LEVEL 8.9 MG/DL (8.8-10.2); CARBON DIOXIDE LEVEL 34 MEQ/L (21-32); CHLORIDE LEVEL 102 MEQ/L (98-107); CHOLESTEROL LEVEL 118 MG/DL (<200); CHOLESTEROL RISK RATIO 3.277 (<5); CREATININE FOR GFR 0.95 MG/DL (0.70-1.30); GLOMERULAR FILTRATION RATE > 60.0 (>35); GLUCOSE, FASTING 167 MG/DL (70-100); HDL CHOLESTEROL 36 MG/DL (>40); LDL CHOLESTEROL 53 MG/DL (<100); NON-HDL-C 82 MG/DL; POTASSIUM SERUM 3.7 MEQ/L (3.5-5.1); SODIUM LEVEL 140 MEQ/L (136-145); TOTAL PROTEIN 6.1 GM/DL (6.4-8.2); TRIGLYCERIDES LEVEL 145 MG/DL (<150)
[2022-01-20 12:05] LABS: HEMOGLOBIN A1c 6.2 %
[2022-01-20 12:13] LABS: TOTAL 25(OH) VITAMIN D 52.2 NG/ML (30.0-100.0)
== END ==
PROVIDERS: ATTEND Student in an Organized Health Care Education/Training Program
DX: I11.9 Hypertensive heart disease without heart failure (principal); E55.9 Vitamin D deficiency, unspecified; Z86.73 Personal history of transient ischemic attack (TIA), and cerebral infarction without residual deficits; Z79.899 Other long term (current) drug therapy

== ENCOUNTER → 2022-02-18 | Outpatient (CLI) | payer MEDICARE ==
[2022-02-18 13:56] LABS: BASO % 0.3 % (0.0-1.0); EOS # 0.1 10^3/uL (0.0-0.5); EOS % 2.3 % (0.0-3.0); HEMATOCRIT 40.7 % (42.0-52.0); HEMOGLOBIN 12.6 g/dl (13.5-17.5); LYMPH # 1.3 10^3/uL (1.5-5.0); LYMPH % 21.2 % (24.0-44.0); MEAN CORPUSCULAR HEMOGLOBIN 30.4 pg (27.0-33.0); MEAN CORPUSCULAR VOLUME 98.1 fl (80.0-96.0); MONO # 0.7 10^3/uL (0.0-0.8); MONO % 11.7 % (2.0-8.0); NEUTROPHILS % 64.2 % (36.0-66.0); PLATELET COUNT, AUTOMATED 216 10^3/uL (150-450); RED BLOOD COUNT 4.15 10^6/uL (4.30-6.10); WHITE BLOOD COUNT 6.2 10^3/uL (4.0-10.0)
[2022-02-18 15:11] LABS: ALBUMIN 3.3 G/DL (3.2-5.2); BLOOD UREA NITROGEN 17 MG/DL (9-23); CALCIUM LEVEL 8.9 MG/DL (8.3-10.6); CARBON DIOXIDE LEVEL 33 MMOL/L (20-31); CHLORIDE LEVEL 102 MMOL/L (98-107); CREATININE FOR GFR 0.85 MG/DL (0.70-1.30); GLOMERULAR FILTRATION RATE > 60.0 (>35); GLUCOSE, FASTING 98 MG/DL (74-106); PHOSPHORUS LEVEL 2.1 MG/DL (2.4-5.1); POTASSIUM SERUM 4.3 MMOL/L (3.5-5.1); SODIUM LEVEL 142 MMOL/L (136-145)
== END ==
LOC: M PLALAB 11:24
PROVIDERS: ATTEND Physician Assistant
DX: L03.115 Cellulitis of right lower limb (principal); I11.9 Hypertensive heart disease without heart failure; I87.2 Venous insufficiency (chronic) (peripheral); R60.0 Localized edema

== ENCOUNTER → 2022-02-22 | Outpatient (REF) | payer MEDICARE ==
[2022-02-22 11:26] LABS: BASO % 0.3 % (0.0-1.0); EOS # 0.2 10^3/uL (0.0-0.5); EOS % 3.4 % (0.0-3.0); HEMATOCRIT 40.7 % (42.0-52.0); HEMOGLOBIN 12.6 g/dl (13.5-17.5); LYMPH # 1.2 10^3/uL (1.5-5.0); LYMPH % 19.6 % (24.0-44.0); MEAN CORPUSCULAR HEMOGLOBIN 30.4 pg (27.0-33.0); MEAN CORPUSCULAR VOLUME 98.1 fl (80.0-96.0); MONO # 0.6 10^3/uL (0.0-0.8); MONO % 9.7 % (2.0-8.0); NEUTROPHILS % 66.8 % (36.0-66.0); PLATELET COUNT, AUTOMATED 214 10^3/uL (150-450); RED BLOOD COUNT 4.15 10^6/uL (4.30-6.10)
[2022-02-22 12:15] LABS: ALBUMIN 3.3 G/DL (3.2-5.2); BLOOD UREA NITROGEN 15 MG/DL (9-23); CALCIUM LEVEL 8.9 MG/DL (8.3-10.6); CARBON DIOXIDE LEVEL 34 MMOL/L (20-31); CHLORIDE LEVEL 102 MMOL/L (98-107); CREATININE FOR GFR 0.87 MG/DL (0.70-1.30); GLOMERULAR FILTRATION RATE > 60.0 (>35); GLUCOSE, FASTING 123 MG/DL (74-106); POTASSIUM SERUM 3.5 MMOL/L (3.5-5.1); SODIUM LEVEL 143 MMOL/L (136-145)
== END ==
PROVIDERS: ATTEND Physician Assistant
DX: L03.115 Cellulitis of right lower limb (principal); R60.0 Localized edema; I87.2 Venous insufficiency (chronic) (peripheral); I11.9 Hypertensive heart disease without heart failure

== ENCOUNTER 2022-03-10 04:59 | Emergency (ER) | payer MEDICARE ==
[~2022-03-10] VITALS: Ht 167.6 cm; Wt 113.6 kg
[2022-03-10 05:56] LABS: BASO % 0.5 % (0.0-1.0); EOS # 0.1 10^3/uL (0.0-0.5); EOS % 2.1 % (0.0-3.0); HEMATOCRIT 42.9 % (42.0-52.0); HEMOGLOBIN 13.3 g/dl (13.5-17.5); LYMPH # 1.6 10^3/uL (1.5-5.0); LYMPH % 26.2 % (24.0-44.0); MEAN CORPUSCULAR VOLUME 96.6 fl (80.0-96.0); MONO # 0.7 10^3/uL (0.0-0.8); MONO % 10.6 % (2.0-8.0); NEUTROPHILS # 3.8 10^3/uL (1.5-8.5); NEUTROPHILS % 60.3 % (36.0-66.0); PLATELET COUNT, AUTOMATED 204 10^3/uL (150-450); RED BLOOD COUNT 4.44 10^6/uL (4.30-6.10); WHITE BLOOD COUNT 6.3 10^3/uL (4.0-10.0)
[2022-03-10 06:22] LABS: LIPASE 37 U/L (12-53)
[2022-03-10 06:24] LABS: BILIRUBIN,DIRECT 0.2 MG/DL (<0.4)
[2022-03-10 06:25] LABS: ALBUMIN 3.3 G/DL (3.2-5.2); ALKALINE PHOSPHATASE 80 U/L (46-116); ALT/SGPT 23 U/L (7.0-40); AST/SGOT 25 U/L (<34); BILIRUBIN,TOTAL 0.5 MG/DL (0.3-1.2); BLOOD UREA NITROGEN 16 MG/DL (9-23); CARBON DIOXIDE LEVEL 32 MMOL/L (20-31); CHLORIDE LEVEL 102 MMOL/L (98-107); CREATININE FOR GFR 0.95 MG/DL (0.70-1.30); GLOMERULAR FILTRATION RATE > 60.0 (>35); GLUCOSE, FASTING 121 MG/DL (74-106); POTASSIUM SERUM 4.4 MMOL/L (3.5-5.1); SODIUM LEVEL 140 MMOL/L (136-145); TOTAL PROTEIN 6.3 G/DL (5.7-8.2)
[2022-03-10] MEDS ORDERED: ACETAMINOPHEN 500 MG TAB PO ONE (10:30)
[2022-03-10] MEDS ORDERED: ISOVUE-370 76% 100ML VIAL As Ordered ONE (10:34)
[2022-03-10] MEDS ORDERED: traMADol 50 MG TAB PO ONE (12:20)
[2022-03-10 12:49] VITALS: BP 131/70
[2022-03-10] MEDS ORDERED: TRAM50TA2 PO ×3 (13:14→16:44)
== END 2022-03-10 13:30 | disposition home or self-care (01) ==
LOC: M ED 04:59 → EDBD 04:59 → M ED 13:30
DX: K40.90 Unilateral inguinal hernia, without obstruction or gangrene, not specified as recurrent (principal); K42.9 Umbilical hernia without obstruction or gangrene; I50.9 Heart failure, unspecified; E11.9 Type 2 diabetes mellitus without complications; I10 Essential (primary) hypertension; E78.5 Hyperlipidemia, unspecified; Z86.73 Personal history of transient ischemic attack (TIA), and cerebral infarction without residual deficits; G47.33 Obstructive sleep apnea (adult) (pediatric); Z87.891 Personal history of nicotine dependence; Z79.82 Long term (current) use of aspirin; Z79.899 Other long term (current) drug therapy
CPT/HCPCS: 74177; 80048; 80076; 83690; 85025; 93041; 99284; Q9967

== ENCOUNTER → 2022-03-22 | Outpatient (REF) | payer MEDICARE ==
[2022-03-22 09:20] LABS: BASO % 0.4 % (0.0-1.0); EOS # 0.2 10^3/uL (0.0-0.5); EOS % 2.9 % (0.0-3.0); HEMATOCRIT 43.5 % (42.0-52.0); HEMOGLOBIN 13.5 g/dl (13.5-17.5); LYMPH # 1.8 10^3/uL (1.5-5.0); LYMPH % 23.6 % (24.0-44.0); MEAN CORPUSCULAR HEMOGLOBIN 30.5 pg (27.0-33.0); MEAN CORPUSCULAR VOLUME 98.2 fl (80.0-96.0); MONO # 0.8 10^3/uL (0.0-0.8); MONO % 11.1 % (2.0-8.0); NEUTROPHILS # 4.6 10^3/uL (1.5-8.5); NEUTROPHILS % 61.5 % (36.0-66.0); PLATELET COUNT, AUTOMATED 202 10^3/uL (150-450); RED BLOOD COUNT 4.43 10^6/uL (4.30-6.10); WHITE BLOOD COUNT 7.5 10^3/uL (4.0-10.0)
[2022-03-22 09:45] LABS: ALBUMIN 3.6 G/DL (3.2-5.2); ALKALINE PHOSPHATASE 90 U/L (46-116); ALT/SGPT 19 U/L (7.0-40); AST/SGOT 25 U/L (<34); BILIRUBIN,TOTAL 0.5 MG/DL (0.3-1.2); BLOOD UREA NITROGEN 23 MG/DL (9-23); CALCIUM LEVEL 9.3 MG/DL (8.3-10.6); CARBON DIOXIDE LEVEL 28 MMOL/L (20-31); CHLORIDE LEVEL 102 MMOL/L (98-107); CHOLESTEROL LEVEL 129 MG/DL (<200); CHOLESTEROL RISK RATIO 3.46 (<5); CREATININE FOR GFR 0.91 MG/DL (0.70-1.30); GLOMERULAR FILTRATION RATE > 60.0 (>35); GLUCOSE, FASTING 102 MG/DL (74-106); HDL CHOLESTEROL 37.2 MG/DL (>40); LDL CHOLESTEROL 43.2 MG/DL (<100); NON-HDL-C 92 MG/DL; POTASSIUM SERUM 4.2 MMOL/L (3.5-5.1); SODIUM LEVEL 142 MMOL/L (136-145); TOTAL 25(OH) VITAMIN D 49.4 NG/ML (20.0-100.0); TOTAL PROTEIN 6.5 G/DL (5.7-8.2); TRIGLYCERIDES LEVEL 243 MG/DL (<150)
[2022-03-22 09:47] LABS: ALBUMIN 3.6 G/DL (3.2-5.2); BLOOD UREA NITROGEN 23 MG/DL (9-23); CALCIUM LEVEL 9.3 MG/DL (8.3-10.6); CARBON DIOXIDE LEVEL 28 MMOL/L (20-31); CHLORIDE LEVEL 102 MMOL/L (98-107); CREATININE FOR GFR 0.92 MG/DL (0.70-1.30); GLOMERULAR FILTRATION RATE > 60.0 (>35); GLUCOSE, FASTING 101 MG/DL (74-106); PHOSPHORUS LEVEL 3.4 MG/DL (2.4-5.1); POTASSIUM SERUM 4.3 MMOL/L (3.5-5.1); SODIUM LEVEL 142 MMOL/L (136-145)
== END ==
PROVIDERS: ATTEND Student in an Organized Health Care Education/Training Program
DX: I11.9 Hypertensive heart disease without heart failure (principal); Z86.73 Personal history of transient ischemic attack (TIA), and cerebral infarction without residual deficits; Z79.899 Other long term (current) drug therapy

== ENCOUNTER → 2022-07-28 | Outpatient (CLI) | payer MEDICARE | LOC: M SOG 08:02 | PROVIDERS: ATTEND Orthopaedic Surgery | DX: Z47.89 Encounter for other orthopedic aftercare (principal); Z96.651 Presence of right artificial knee joint ==

== ENCOUNTER 2022-10-20 09:06 | Emergency (ER) | payer MEDICARE ==
[~2022-10-20] VITALS: Ht 167.6 cm; Wt 113.0 kg
[~2022-10-20 09:06] MED LIST changes: +SENN-111 PO; -SENN18TA PO
[2022-10-20 12:34] LABS: BASO % 0.5 % (0.0-1.0); EOS # 0.2 10^3/uL (0.0-0.5); EOS % 2.6 % (0.0-3.0); HEMATOCRIT 42.2 % (42.0-52.0); HEMOGLOBIN 13.5 g/dl (13.5-17.5); LYMPH # 1.3 10^3/uL (1.5-5.0); LYMPH % 21.5 % (24.0-44.0); MONO # 0.7 10^3/uL (0.0-0.8); MONO % 11.3 % (2.0-8.0); NEUTROPHILS # 3.9 10^3/uL (1.5-8.5); NEUTROPHILS % 63.6 % (36.0-66.0); PLATELET COUNT, AUTOMATED 181 10^3/uL (150-450); RED BLOOD COUNT 4.35 10^6/uL (4.30-6.10); WHITE BLOOD COUNT 6.1 10^3/uL (4.0-10.0)
[2022-10-20 12:56] LABS: ALBUMIN 3.6 G/DL (3.2-5.2); BILIRUBIN,DIRECT 0.2 MG/DL (<0.4); BILIRUBIN,TOTAL 0.6 MG/DL (0.3-1.2); TOTAL PROTEIN 6.3 G/DL (5.7-8.2)
[2022-10-20] MEDS ORDERED: ISOVUE-370 76% 100ML VIAL As Ordered ONE (12:59)
[2022-10-20] MEDS ORDERED: ACETAMINOPHEN 500 MG TAB PO ONE (14:55)
[2022-10-20 15:42] VITALS: BP 152/67; TEMP 98.2; O2SAT 95
== END 2022-10-20 16:04 | disposition home or self-care (01) ==
LOC: EDBD 09:06 → M ED 09:06
DX: K40.90 Unilateral inguinal hernia, without obstruction or gangrene, not specified as recurrent (principal); N43.3 Hydrocele, unspecified; J44.9 Chronic obstructive pulmonary disease, unspecified; M85.80 Other specified disorders of bone density and structure, unspecified site; Z86.73 Personal history of transient ischemic attack (TIA), and cerebral infarction without residual deficits; E55.9 Vitamin D deficiency, unspecified; Z87.891 Personal history of nicotine dependence; Z79.899 Other long term (current) drug therapy; Z79.82 Long term (current) use of aspirin
CPT/HCPCS: 36415; 74177; 76857; 76870; 80076; 85025; 93971; 93976; 99284; Q9967

== ENCOUNTER → 2023-07-11 | Outpatient (REF) | payer MEDICARE, MEDICAID ==
[~2023-07-11] MED LIST changes: -MIRA1POW3 PO; +MIRA33506 PO
[2023-07-11 08:43] LABS: HEMOGLOBIN 13.9 g/dl (13.5-17.5); MEAN CORPUSCULAR HEMOGLOBIN 31.2 pg (27.0-33.0); MEAN CORPUSCULAR HGB CONC 31.6 g/dl (32.0-36.5); MEAN CORPUSCULAR VOLUME 98.7 fl (80.0-96.0); PLATELET COUNT, AUTOMATED 184 10^3/uL (150-450); RED BLOOD COUNT 4.46 10^6/uL (4.30-6.10); WHITE BLOOD COUNT 6.5 10^3/uL (4.0-10.0)
[2023-07-11 09:16] LABS: BLOOD UREA NITROGEN 18 MG/DL (9-23); CALCIUM LEVEL 8.8 MG/DL (8.3-10.6); CARBON DIOXIDE LEVEL 32 MMOL/L (20-31); CHLORIDE LEVEL 102 MMOL/L (98-107); CHOLESTEROL LEVEL 131 MG/DL (<200); CHOLESTEROL RISK RATIO 3.93 (<5); CREATININE FOR GFR 0.96 MG/DL (0.70-1.30); GLOMERULAR FILTRATION RATE > 60.0 (>35); GLUCOSE, FASTING 131 MG/DL (74-106); HDL CHOLESTEROL 33.3 MG/DL (>40); LDL CHOLESTEROL 64.7 MG/DL (<100); NON-HDL-C 97.7 MG/DL; POTASSIUM SERUM 4.1 MMOL/L (3.5-5.1); SODIUM LEVEL 140 MMOL/L (136-145); TRIGLYCERIDES LEVEL 165 MG/DL (<150)
[2023-07-11 10:08] LABS: HEMOGLOBIN A1c 6.9 % (4.0-6.0)
== END ==
PROVIDERS: ATTEND Student in an Organized Health Care Education/Training Program
DX: I10 Essential (primary) hypertension (principal); E78.5 Hyperlipidemia, unspecified; Z13.1 Encounter for screening for diabetes mellitus

== ENCOUNTER → 2023-11-16 | Outpatient (REF) | payer MEDICARE, MEDICAID ==
[2023-11-16 08:35] LABS: BLOOD UREA NITROGEN 18 MG/DL (9-23); CARBON DIOXIDE LEVEL 33 MMOL/L (20-31); CHLORIDE LEVEL 105 MMOL/L (98-107); CREATININE FOR GFR 0.96 MG/DL (0.70-1.30); GLOMERULAR FILTRATION RATE > 60.0 (>35); GLUCOSE, FASTING 152 MG/DL (74-106); POTASSIUM SERUM 4.3 MMOL/L (3.5-5.1); SODIUM LEVEL 142 MMOL/L (136-145)
== END ==
PROVIDERS: ATTEND Student in an Organized Health Care Education/Training Program
DX: M79.89 Other specified soft tissue disorders (principal)

== ENCOUNTER → 2023-11-18 | Outpatient (CLI) | payer MEDICARE, MEDICAID ==
[~2023-11-18] MED LIST changes: +ISOVUE-370 76% 100ML VIAL As Ordered ONE
== END ==
LOC: M RAD 12:27
PROVIDERS: ATTEND Student in an Organized Health Care Education/Training Program
DX: R10.31 Right lower quadrant pain (principal); K40.20 Bilateral inguinal hernia, without obstruction or gangrene, not specified as recurrent
CPT/HCPCS: 74177; Q9967

== ENCOUNTER → 2023-11-25 | Outpatient (REF) | payer MEDICARE, MEDICAID ==
[~2023-11-25] MED LIST changes: -ISOVUE-370 76% 100ML VIAL As Ordered ONE
== END ==
PROVIDERS: ATTEND Student in an Organized Health Care Education/Training Program
DX: M79.89 Other specified soft tissue disorders (principal)

== ENCOUNTER → 2023-11-25 | Outpatient (REF) | payer MEDICARE, MEDICAID ==
[2023-11-25 09:19] LABS: BLOOD UREA NITROGEN 17 MG/DL (9-23); CALCIUM LEVEL 8.9 MG/DL (8.3-10.6); CARBON DIOXIDE LEVEL 34 MMOL/L (20-31); CHLORIDE LEVEL 104 MMOL/L (98-107); CREATININE FOR GFR 0.95 MG/DL (0.70-1.30); GLOMERULAR FILTRATION RATE > 60.0 (>35); GLUCOSE, FASTING 172 MG/DL (74-106); POTASSIUM SERUM 4.4 MMOL/L (3.5-5.1); SODIUM LEVEL 141 MMOL/L (136-145)
== END ==
PROVIDERS: ATTEND Student in an Organized Health Care Education/Training Program
DX: M79.89 Other specified soft tissue disorders (principal)

== ENCOUNTER → 2023-11-28 | Outpatient (REF) | payer MEDICARE, MEDICAID ==
[2023-11-28 17:59] LABS: CREATININE, URINE 55.4 MG/DL
[2023-11-28 18:00] LABS: MALB URINE SIEMENS < 3.0 MG/L; MAU/CREAT RATIO 5.4 MCG/MG (0.0-30.0)
== END ==
PROVIDERS: ATTEND Student in an Organized Health Care Education/Training Program
DX: M79.89 Other specified soft tissue disorders (principal)

== ENCOUNTER → 2023-11-30 | Outpatient (REF) | payer MEDICARE, MEDICAID ==
[2023-11-30 10:07] LABS: HEMOGLOBIN A1c 7.5 % (4.0-6.0)
== END ==
PROVIDERS: ATTEND Student in an Organized Health Care Education/Training Program
DX: R73.09 Other abnormal glucose (principal)

== ENCOUNTER → 2023-12-26 | Outpatient (CLI) | payer MEDICARE, MEDICAID ==
[~2023-12-26] MED LIST changes: -SENN-111 PO; +SENN-165 PO
== END ==
LOC: M SOG 07:27
PROVIDERS: ATTEND Orthopaedic Surgery
DX: M25.551 Pain in right hip (principal)

== ENCOUNTER 2024-03-27 07:38 | Inpatient (IN) | payer MEDICARE, MEDICAID ==
[~2024-03-27] VITALS: Ht 167.6 cm; Wt 128.5 kg
[2024-03-27] MEDS: ACETAMINOPHEN *IV* 1,000 MG in IV 1 EA IV ONE (08:17)
[2024-03-27 08:37] LABS: BASO % 0.4 % (0.0-1.0); EOS # 0.1 10^3/uL (0.0-0.5); EOS % 1.4 % (0.0-3.0); HEMATOCRIT 42.2 % (42.0-52.0); HEMOGLOBIN 13.4 g/dl (13.5-17.5); LYMPH # 1.1 10^3/uL (1.5-5.0); LYMPH % 19.1 % (24.0-44.0); MEAN CORPUSCULAR HEMOGLOBIN 32.1 pg (27.0-33.0); MEAN CORPUSCULAR HGB CONC 31.8 g/dl (32.0-36.5); MEAN CORPUSCULAR VOLUME 101.2 fl (80.0-96.0); MONO # 0.6 10^3/uL (0.0-0.8); MONO % 10.5 % (2.0-8.0); NEUTROPHILS # 3.8 10^3/uL (1.5-8.5); NEUTROPHILS % 68.1 % (36.0-66.0); PLATELET COUNT, AUTOMATED 180 10^3/uL (150-450); RED BLOOD COUNT 4.17 10^6/uL (4.30-6.10); WHITE BLOOD COUNT 5.6 10^3/uL (4.0-10.0)
[2024-03-27] MEDS ORDERED: ISOVUE-370 76% 100ML VIAL As Ordered ONE (08:54)
[2024-03-27] MEDS ORDERED: CLOP75TA2 PO (09:01)
[2024-03-27] MEDS ORDERED: FERR325T3 PO (09:03)
[2024-03-27] MEDS ORDERED: SENN8.6T28 PO ×2 (09:04→09:20)
[2024-03-27 09:05] LABS: LIPASE 100 U/L (12-53)
[2024-03-27] MEDS ORDERED: TORS10TA3 PO (09:06)
[2024-03-27 09:08] LABS: ALBUMIN 3.4 G/DL (3.2-5.2); ALKALINE PHOSPHATASE 70 U/L (40-129); ALT/SGPT 38 U/L (7.0-40); AST/SGOT 39 U/L (<34); BILIRUBIN,DIRECT 0.2 MG/DL (<0.4); BILIRUBIN,TOTAL 0.6 MG/DL (0.3-1.2); BLOOD UREA NITROGEN 19 MG/DL (9-23); CALCIUM LEVEL 8.9 MG/DL (8.3-10.6); CARBON DIOXIDE LEVEL 32 MMOL/L (20-31); CHLORIDE LEVEL 106 MMOL/L (98-107); CREATININE FOR GFR 0.86 MG/DL (0.70-1.30); GLOMERULAR FILTRATION RATE > 60.0 (>35); GLUCOSE, FASTING 176 MG/DL (74-106); POTASSIUM SERUM 4.8 MMOL/L (3.5-5.1); SODIUM LEVEL 143 MMOL/L (136-145); TOTAL PROTEIN 6.2 G/DL (5.7-8.2)
[2024-03-27] MEDS ORDERED: GENT1SOL17 OU (09:13)
[2024-03-27] MEDS ORDERED: ACET-683 PO (09:16)
[2024-03-27] MEDS ORDERED: MIRA3350 PO (09:18)
[2024-03-27] MEDS ORDERED: TRAM50TA2 PO (09:23)
[2024-03-27] MEDS ORDERED: HOME MED LIST COMPLETE! XX SCH (09:25)
[2024-03-27] MEDS ORDERED: SENOKOT S TAB PO PRN (13:45)
[2024-03-27] MEDS ORDERED: MOM 30ML SUSPENSION UDC PO PRN (13:45)
[2024-03-27] MEDS ORDERED: NALOXONE INJ 0.4MG/1ML VIAL IV PRN (13:45)
[2024-03-27] MEDS ORDERED: oxyCODONE 5MG TAB PO PRN (13:45)
[2024-03-27] MEDS ORDERED: GLUCOSE 4 GM CHEW PO PRN (13:50)
[2024-03-27] MEDS ORDERED: GLUCAGON INJ 1MG VIAL SC PRN (13:50)
[2024-03-27] MEDS ORDERED: DEXTROSE 50% 50ML SYRINGE IV PRN (13:50)
[2024-03-27 14:04] LABS: THYROID STIMULATING HORMONE 0.934 uIU/ML (0.55-4.78)
[2024-03-27] MEDS ORDERED: NS (Normal Saline) 0.9% 1,000 ML IV SCH (14:15)
[2024-03-27 14:18] LABS: HEMOGLOBIN A1c 8.2 % (4.0-6.0)
[2024-03-27 14:30] VITALS: BP 148/69; TEMP 97.7; O2SAT 97
[2024-03-27] MEDS: KETOROLAC 30 MG/ML 1ML VIAL IV SCH (16:57)
[2024-03-27] MEDS: ACETAMINOPHEN 500 MG TAB PO SCH (16:58)
[2024-03-27] MEDS: INSULIN LISPRO (NovoLOG) PER UNIT SC SCH ×2 (16:59→20:50)
[2024-03-27 20:00] VITALS: BP 147/65; TEMP 97.9; O2SAT 95
[2024-03-27] MEDS: SENNA 8.6 MG TAB (SENOKOT) PO SCH (20:49)
[2024-03-27] MEDS: SIMVASTATIN 20 MG TAB PO SCH (20:49)
[2024-03-27] MEDS: METOPROLOL TART 50 MG TAB PO SCH (20:49)
[2024-03-27] MEDS ORDERED: ANUSOL HC CREAM 30GM TOP PRN (21:00)
[2024-03-27] MEDS: diphenhydrAMINE 50MG/ML VIAL IV ONE (21:33)
[2024-03-27] MEDS ORDERED: diphenhydrAMINE 50MG/ML VIAL IV PRN (22:30)
[2024-03-27] MEDS: predniSONE 20 MG TAB PO SCH (23:14)
[2024-03-27 23:22] VITALS: O2SAT 93
[2024-03-28 02:41] VITALS: O2SAT 86
[2024-03-28 02:42] VITALS: O2SAT 91
[2024-03-28 03:06] VITALS: O2SAT 93
[2024-03-28 04:00] VITALS: BP 139/72; TEMP 97.9; O2SAT 89
[2024-03-28 05:15] LABS: BASO % 0.2 % (0.0-1.0); EOS % 0.2 % (0.0-3.0); HEMATOCRIT 42.3 % (42.0-52.0); HEMOGLOBIN 13.6 g/dl (13.5-17.5); LYMPH # 0.8 10^3/uL (1.5-5.0); LYMPH % 8.7 % (24.0-44.0); MEAN CORPUSCULAR HEMOGLOBIN 32.5 pg (27.0-33.0); MEAN CORPUSCULAR HGB CONC 32.2 g/dl (32.0-36.5); MEAN CORPUSCULAR VOLUME 101.2 fl (80.0-96.0); MONO # 0.3 10^3/uL (0.0-0.8); MONO % 2.9 % (2.0-8.0); NEUTROPHILS # 7.9 10^3/uL (1.5-8.5); NEUTROPHILS % 87.3 % (36.0-66.0); PLATELET COUNT, AUTOMATED 178 10^3/uL (150-450); RED BLOOD COUNT 4.18 10^6/uL (4.30-6.10); WHITE BLOOD COUNT 9.1 10^3/uL (4.0-10.0)
[2024-03-28 05:32] LABS: LIPASE 29 U/L (12-53)
[2024-03-28 05:34] LABS: ALBUMIN 3.4 G/DL (3.2-5.2); ALKALINE PHOSPHATASE 67 U/L (40-129); ALT/SGPT 36 U/L (7.0-40); AST/SGOT 29 U/L (<34); BILIRUBIN,TOTAL 0.6 MG/DL (0.3-1.2); BLOOD UREA NITROGEN 24 MG/DL (9-23); CALCIUM LEVEL 9.1 MG/DL (8.3-10.6); CARBON DIOXIDE LEVEL 31 MMOL/L (20-31); CHLORIDE LEVEL 104 MMOL/L (98-107); CHOLESTEROL LEVEL 139 MG/DL (<200); CHOLESTEROL RISK RATIO 4.49 (<5); CREATININE FOR GFR 1.05 MG/DL (0.70-1.30); GLOMERULAR FILTRATION RATE > 60.0 (>35); GLUCOSE, FASTING 199 MG/DL (74-106); HDL CHOLESTEROL 30.9 MG/DL (>40); LDL CHOLESTEROL 71.9 MG/DL (<100); NON-HDL-C 108.1 MG/DL; POTASSIUM SERUM 4.6 MMOL/L (3.5-5.1); SODIUM LEVEL 141 MMOL/L (136-145); TOTAL PROTEIN 6.1 G/DL (5.7-8.2); TRIGLYCERIDES LEVEL 181 MG/DL (<150)
[2024-03-28] MEDS: diphenhydrAMINE 25MG CAP PO ONE (08:00)
[2024-03-28] MEDS: methylPREDNISolone 125MG 2ML VIAL IV ONE (08:00)
[2024-03-28] MEDS: TRIAMCINOLONE ACET 0.1% OINTMENT 15GM TOP SCH (09:00)
[2024-03-28 09:05] VITALS: BP 139/72
[2024-03-28] MEDS: FERROUS SULFATE 325MG TAB PO SCH (09:05)
[2024-03-28] MEDS: VITAMIN D 1,000 INTERNATIONAL UNITS TABLET PO SCH (09:06)
[2024-03-28] MEDS: FAMOTIDINE 20 MG TAB PO ONE (09:07)
[2024-03-28] MEDS: ASPIRIN 81MG ENTERIC TABLET PO SCH (09:09)
[2024-03-28 09:20] LABS: MB/CK RELATIVE INDEX 0.8 (< OR =4)
== END 2024-03-28 13:44 | DRG 394 ==
LOC: EDBD 07:38 → M ED 07:38 → M ED INP 13:21 → M MSPAV 14:26
PROVIDERS: ADMIT General Practice; ATTEND General Practice
DX: K42.9 Umbilical hernia without obstruction or gangrene (principal); Z68.42 Body mass index [BMI] 45.0-49.9, adult; E66.01 Morbid (severe) obesity due to excess calories; I10 Essential (primary) hypertension; E78.00 Pure hypercholesterolemia, unspecified; J44.9 Chronic obstructive pulmonary disease, unspecified; G47.33 Obstructive sleep apnea (adult) (pediatric); Z79.82 Long term (current) use of aspirin; Z79.899 Other long term (current) drug therapy; K76.0 Fatty (change of) liver, not elsewhere classified; Z79.02 Long term (current) use of antithrombotics/antiplatelets

== ENCOUNTER → 2024-04-03 | Outpatient (REF) | payer MEDICARE ==
[~2024-04-03] MED LIST changes: +ACET-683 PO; +FERR325T3 PO; +GENT1SOL17 OU; +MIRA3350 PO; +SENN8.6T28 PO; +TORS10TA3 PO
== END ==
LOC: M SFHCPLAZ 21:45
PROVIDERS: ATTEND Family Medicine
DX: D64.9 Anemia, unspecified (principal); E11.9 Type 2 diabetes mellitus without complications; E55.9 Vitamin D deficiency, unspecified; I11.9 Hypertensive heart disease without heart failure; E78.1 Pure hyperglyceridemia; Z53.9 Procedure and treatment not carried out, unspecified reason

== ENCOUNTER → 2024-04-04 | Outpatient (REF) | payer MEDICARE | LOC: M SFHCPLAZ 09:54 | PROVIDERS: ATTEND Family Medicine | DX: Z53.9 Procedure and treatment not carried out, unspecified reason (principal) ==

== ENCOUNTER → 2024-04-09 | Outpatient (REF) | payer MEDICARE ==
[2024-04-09 12:00] LABS: BASO % 0.3 % (0.0-1.0); EOS # 0.1 10^3/uL (0.0-0.5); EOS % 1.9 % (0.0-3.0); HEMATOCRIT 44.1 % (42.0-52.0); LYMPH # 1.4 10^3/uL (1.5-5.0); LYMPH % 22.2 % (24.0-44.0); MEAN CORPUSCULAR HEMOGLOBIN 32.6 pg (27.0-33.0); MEAN CORPUSCULAR HGB CONC 31.7 g/dl (32.0-36.5); MEAN CORPUSCULAR VOLUME 102.8 fl (80.0-96.0); MONO # 0.7 10^3/uL (0.0-0.8); MONO % 10.6 % (2.0-8.0); NEUTROPHILS % 64.2 % (36.0-66.0); PLATELET COUNT, AUTOMATED 166 10^3/uL (150-450); RED BLOOD COUNT 4.29 10^6/uL (4.30-6.10); WHITE BLOOD COUNT 6.3 10^3/uL (4.0-10.0)
[2024-04-09 12:14] LABS: HEMOGLOBIN A1c 8.1 % (4.0-6.0)
[2024-04-09 12:32] LABS: IRON (FE) 119 UG/DL (65-175)
[2024-04-09 12:33] LABS: ALBUMIN 3.5 G/DL (3.2-5.2); ALKALINE PHOSPHATASE 71 U/L (40-129); ALT/SGPT 41 U/L (7.0-40); AST/SGOT 30 U/L (<34); BILIRUBIN,TOTAL 0.7 MG/DL (0.3-1.2); BLOOD UREA NITROGEN 19 MG/DL (9-23); CALCIUM LEVEL 9.1 MG/DL (8.3-10.6); CARBON DIOXIDE LEVEL 34 MMOL/L (20-31); CHLORIDE LEVEL 102 MMOL/L (98-107); CHOLESTEROL LEVEL 152 MG/DL (<200); CHOLESTEROL RISK RATIO 4.06 (<5); CREATININE FOR GFR 1.03 MG/DL (0.70-1.30); GLOMERULAR FILTRATION RATE > 60.0 (>35); GLUCOSE, FASTING 154 MG/DL (74-106); HDL CHOLESTEROL 37.4 MG/DL (>40); LDL CHOLESTEROL 74.8 MG/DL (<100); NON-HDL-C 114.6 MG/DL; PERCENT SATURATION 40.6 % (19.7-50.0); POTASSIUM SERUM 4.4 MMOL/L (3.5-5.1); SODIUM LEVEL 143 MMOL/L (136-145); THYROID STIMULATING HORMONE 0.759 uIU/ML (0.55-4.78); TOTAL 25(OH) VITAMIN D 37.6 NG/ML (20.0-100.0); TOTAL IRON BINDING CAPACITY 293 UG/DL (250-425); TOTAL PROTEIN 6.7 G/DL (5.7-8.2); TRIGLYCERIDES LEVEL 199 MG/DL (<150)
[2024-04-09 12:34] LABS: FOLATE 11.2 NG/ML (>5.4); VITAMIN B12 LEVEL 280 PG/ML (211-911)
[2024-04-09 12:35] LABS: FREE T4 1.58 NG/DL (0.89-1.76)
== END ==
DX: D64.9 Anemia, unspecified (principal); E11.9 Type 2 diabetes mellitus without complications; E55.9 Vitamin D deficiency, unspecified; I11.9 Hypertensive heart disease without heart failure; E78.1 Pure hyperglyceridemia

== ENCOUNTER → 2024-08-02 | Outpatient (REF) | payer MEDICARE, MEDICAID ==
[2024-08-02 18:46] LABS: CREATININE, URINE 38.2 MG/DL; MALB URINE SIEMENS < 3.0 MG/L
== END ==
PROVIDERS: ATTEND Student in an Organized Health Care Education/Training Program
DX: E11.9 Type 2 diabetes mellitus without complications (principal)

== ENCOUNTER → 2024-10-26 | Outpatient (REF) | payer MEDICARE, MEDICAID ==
[2024-10-26 10:53] LABS: CALCIUM LEVEL 8.8 MG/DL (8.3-10.6); CARBON DIOXIDE LEVEL 33.0 MMOL/L (20-31); CHLORIDE LEVEL 100.0 MMOL/L (98-107); CREATININE FOR GFR 0.99 MG/DL (0.70-1.30); GLOMERULAR FILTRATION RATE 75.6 (>35); POTASSIUM SERUM 4.2 MMOL/L (3.5-5.1); SODIUM LEVEL 142.0 MMOL/L (136-145)
[2024-10-26 11:16] LABS: ESTIMATED AVERAGE GLUCOSE 171.0 MG/DL (60-110)
== END ==
PROVIDERS: ATTEND Student in an Organized Health Care Education/Training Program
DX: R60.0 Localized edema (principal); E11.9 Type 2 diabetes mellitus without complications; I11.9 Hypertensive heart disease without heart failure; R06.02 Shortness of breath

== ENCOUNTER → 2025-01-25 | Outpatient (REF) | payer MEDICARE, MEDICAID ==
[2025-01-25 12:09] LABS: BASO # 0.0 10^3/uL (0.0-0.2); BASO % 0.3 % (0.0-1.0); EOS # 0.1 10^3/uL (0.0-0.5); EOS % 1.9 % (0.0-3.0); LYMPH # 1.2 10^3/uL (1.5-5.0); LYMPH % 20.3 % (24.0-44.0); MONO # 0.7 10^3/uL (0.0-0.8); MONO % 12.1 % (2.0-8.0); NEUTROPHILS # 3.8 10^3/uL (1.5-8.5); NEUTROPHILS % 64.7 % (36.0-66.0); PLATELET COUNT, AUTOMATED 198 10^3/uL (150-450)
[2025-01-25 12:41] LABS: ALT/SGPT 33.0 U/L (7.0-40); AST/SGOT 30.0 U/L (<34); CALCIUM LEVEL 8.7 MG/DL (8.3-10.6); CARBON DIOXIDE LEVEL 34.0 MMOL/L (20-31); CHLORIDE LEVEL 103.0 MMOL/L (98-107); CHOLESTEROL LEVEL 112.0 MG/DL (<200); CHOLESTEROL RISK RATIO 3.68 (<5); CREATININE FOR GFR 1.04 MG/DL (0.70-1.30); GLOMERULAR FILTRATION RATE 71.2 (>35); LDL CHOLESTEROL 47.4 MG/DL (<100); NON-HDL-C 81.6 MG/DL; POTASSIUM SERUM 4.1 MMOL/L (3.5-5.1); SODIUM LEVEL 144.0 MMOL/L (136-145); TRIGLYCERIDES LEVEL 171.0 MG/DL (<150)
[2025-01-25 13:19] LABS: ESTIMATED AVERAGE GLUCOSE 174.0 MG/DL (60-110)
== END ==
PROVIDERS: ATTEND Student in an Organized Health Care Education/Training Program
DX: Z00.00 Encounter for general adult medical examination without abnormal findings (principal); E78.1 Pure hyperglyceridemia; E11.9 Type 2 diabetes mellitus without complications

== ENCOUNTER 2025-03-09 02:30 | Emergency (ER) | payer MEDICARE, MEDICAID ==
[~2025-03-09] VITALS: Ht 167.6 cm; Wt 136.2 kg
[2025-03-09 03:18] LABS: BASO # 0.0 10^3/uL (0.0-0.2); BASO % 0.3 % (0.0-1.0); EOS # 0.2 10^3/uL (0.0-0.5); EOS % 2.4 % (0.0-3.0); LYMPH # 1.5 10^3/uL (1.5-5.0); LYMPH % 24.2 % (24.0-44.0); MONO # 0.7 10^3/uL (0.0-0.8); MONO % 11.7 % (2.0-8.0); NEUTROPHILS # 3.8 10^3/uL (1.5-8.5); NEUTROPHILS % 60.6 % (36.0-66.0); PLATELET COUNT, AUTOMATED 175 10^3/uL (150-450)
[2025-03-09 03:59] LABS: ALT/SGPT 36.0 U/L (7.0-40); AST/SGOT 33.0 U/L (<34); CALCIUM LEVEL 8.7 MG/DL (8.3-10.6); CARBON DIOXIDE LEVEL 34.0 MMOL/L (20-31); CHLORIDE LEVEL 102.0 MMOL/L (98-107); CREATININE FOR GFR 0.95 MG/DL (0.70-1.30); GLOMERULAR FILTRATION RATE 79.4 (>35); POTASSIUM SERUM 4.4 MMOL/L (3.5-5.1); SODIUM LEVEL 143.0 MMOL/L (136-145)
[2025-03-09] MEDS: ACETAMINOPHEN *IV* 1,000 MG in IV 1 EA IV ONE (04:37)
[2025-03-09] MEDS ORDERED: ISOVUE-370 76% 100 ML VIAL As Ordered ONE (04:46)
[2025-03-09] MEDS: KETOROLAC 30 MG/ML 1 ML VIAL IV ONE (06:35)
[2025-03-09 06:50] LABS: KETONE, URINE AUTO RFX NEGATIVE (NEGATIVE); LEUKOCYTE ESTERASE UR AUTO RFX NEGATIVE (NEGATIVE); MUCUS, URINE RFX SMALL (NEGATIVE); NITRITE, URINE AUTO RFX NEGATIVE (NEGATIVE); RBC, URINE AUTO RFX 0 /HPF (0-3); SQUAM EPITHELIAL CELL UR AURFX 0 /HPF (0-6); WBC, URINE AUTO RFX 0 /HPF (0-3)
[2025-03-09 08:15] VITALS: BP 167/74; TEMP 97.5; O2SAT 94
== END 2025-03-09 08:48 | disposition home or self-care (01) ==
LOC: M ED 02:30
DX: K42.9 Umbilical hernia without obstruction or gangrene (principal); K80.20 Calculus of gallbladder without cholecystitis without obstruction; K76.0 Fatty (change of) liver, not elsewhere classified; I50.22 Chronic systolic (congestive) heart failure; E11.9 Type 2 diabetes mellitus without complications; J44.9 Chronic obstructive pulmonary disease, unspecified; E55.9 Vitamin D deficiency, unspecified; Z86.73 Personal history of transient ischemic attack (TIA), and cerebral infarction without residual deficits; Z79.1 Long term (current) use of non-steroidal anti-inflammatories (NSAID); Z79.899 Other long term (current) drug therapy
CPT/HCPCS: 74177; 80048; 80076; 81001; 82150; 83690; 85025; 96365; 96366; 96375; 99284; J0134; J1885; Q9967